=== PATIENT | female | born 1945 | race Caucasian/White ===

== ENCOUNTER → 2017-12-25 | Outpatient (CLI) | payer MEDICARE ==
--- NOTE | 2017-12-25 14:38 | XR ---
EXAMINATION TYPE: XR shoulder complete RT DATE OF EXAM: 12/25/2017 CLINICAL HISTORY: Nontraumatic right shoulder pain. TECHNIQUE: Three views of the right shoulder are obtained. COMPARISON: None. FINDINGS: There is no acute fracture/dislocation evident in the right shoulder. The acromioclavicul ar and glenohumeral joint spaces demonstrate degenerative change. Moderate acromioclavicular arthropa thy seen as marginal osteophytes and joint space narrowing as well as capsular hypertrophy and few ma rginal osteophytes of the humerus. Small subchondral cyst is also seen of the superior posterior carlos oid. No suspicious osseous lesion. The visualized ribs are intact and unremarkable. IMPRESSION: There is no acute fracture or dislocation in the right shoulder. Moderate acromio clavic ular arthropathy and mild glenohumeral arthropathy is seen on the right.
== END | disposition home or self-care (01) ==
LOC: RADXRMAIN 12:32
PROVIDERS: ATTEND Internal Medicine
DX: M19.011 Primary osteoarthritis, right shoulder (principal)

== ENCOUNTER → 2019-04-06 | Outpatient (CLI) | payer MEDICARE ==
--- NOTE | 2019-04-07 10:19 | MM ---
Reason for exam: screening (asymptomatic). Last mammogram was performed 4 years and 1 month ago. History: Patient is postmenopausal, history of endometrial cancer, and history of other cancer. Physical Findings: A clinical breast exam by your physician is recommended on an annual basis and results should be correlated with mammographic findings. MG 3D Screening Mammo W/Cad Bilateral CC and MLO view(s) were taken. Prior study comparison: February 22, 2015, bilateral MG screening mammo w CAD. October 13, 2013, bilateral MG screening mammo w CAD. There are scattered fibroglandular densities. There are benign appearing sable right upper inner quadrant and upper outer quadrant masses (two) on the right. Benign appearing bilateral calcifications. No suspicious abnormality. No significant changes when compared with prior studies. ASSESSMENT: Benign, BI-RAD 2 RECOMMENDATION: Routine screening mammogram of both breasts in 1 year.
== END | disposition home or self-care (01) ==
LOC: RADMAMWWP 10:57
PROVIDERS: ATTEND Internal Medicine
DX: Z12.31 Encounter for screening mammogram for malignant neoplasm of breast (principal)
CPT/HCPCS: 77063; 77067

== ENCOUNTER → 2019-12-06 | Outpatient (CLI) | payer MEDICARE ==
--- NOTE | 2019-12-06 15:18 | XR ---
EXAMINATION TYPE: XR forearm LT DATE OF EXAM: 12/06/2019 COMPARISON: NONE HISTORY: 74-year-old female with fall and injury, pain. TECHNIQUE: 2 views FINDINGS: Mild bony irregularity at the lateral condyle. Bony spurring at the coronoid process of the olecranon . No elbow joint effusion. No acute fracture, subluxation, dislocation seen. IMPRESSION: Bony spurring at the coronoid process may relate to old UCL injury. Some additional bony changes at t he lateral epicondyle suggesting chronic tendinopathy of the common extensor origin. No acute osseous abnormality seen.
== END | disposition home or self-care (01) ==
LOC: RADXRMAIN 14:10
PROVIDERS: ATTEND Internal Medicine
DX: T14.90XA Injury, unspecified, initial encounter (principal)

== ENCOUNTER → 2021-01-11 | Outpatient (CLI) | payer MEDICARE ==
--- NOTE | 2021-01-11 15:33 | XR ---
EXAMINATION TYPE: XR shoulder complete BILAT DATE OF EXAM: 01/11/2021 CLINICAL HISTORY: Bilateral shoulder pain after gardening injury. TECHNIQUE: Three views of the bilateral shoulders are obtained. COMPARISON: Prior right shoulder x-ray December 25, 2017. FINDINGS: There is no acute fracture/dislocation evident in either shoulder. Moderate to severe narr owing right acromioclavicular joint redemonstrated more prominent than left shoulder which shows mild to moderate narrowing and mild spurring distal acromion morphology unremarkable bilaterally. Symmetr ic mild to moderate narrowing and mild spurring bilateral glenohumeral joints. Visualized ribs are in tact bilaterally. IMPRESSION: As above.
== END | disposition home or self-care (01) ==
LOC: RADXRMAIN 15:01
PROVIDERS: ATTEND Internal Medicine
DX: M19.011 Primary osteoarthritis, right shoulder (principal); M19.012 Primary osteoarthritis, left shoulder; Y93.H2 Activity, gardening and landscaping

== ENCOUNTER 2021-04-16 14:49 | Emergency (ER) | payer MEDICARE ==
[2021-04-16 14:59] VITALS: BP 125/76; PULSE 88; TEMP 98.5
[2021-04-16 15:20] VITALS: RESP 18
--- NOTE | 2021-04-16 15:20 | ED ---
General Adult HPI - General Chief complaint: Upper Respiratory Infection Stated complaint: COVID+ Cough Time Seen by Provider: 04/16/21 15:04 Source: patient, RN notes reviewed Mode of arrival: wheelchair Limitations: no limitations - History of Present Illness Initial comments: 75-year-old well-appearing female patient presents to the emergency room from PCP's office for monoclonal antibody infusion. Patient states that she seen her doctor on Friday and he tested her for Covid. He called her today with positive results. She states that she has been having 5 days of body aches, nausea and cough. She recently finished amoxicillin for dental procedure that was scheduled today. That procedure was canceled because of Covid infection. Patient denies any pain, shortness of breath or nausea vomiting at this time. She does have a history of uterine cancer, DVT and hypertension. She states that she stopped taking her Coumadin 5 days ago for the dental procedure. -: days(s) (4) Location: head, face Severity scale (1-10): 0 Quality: aching Consistency: now resolved Improves with: other (tylenol) Worsens with: none Associated Symptoms: cough, headaches, loss of appetite, other (body aches) Treatments Prior to Arrival: none - Related Data Home Medications Medication Instructions Recorded Confirmed amLODIPine BESYLATE [Norvasc] 5 mg PO DAILY 02/23/14 03/01/14 carisoprodoL [Soma] 350 mg PO TID 02/23/14 03/01/14 Previous Rx's Medication Instructions Recorded Enoxaparin [Lovenox] 100 mg SQ Q12H #6 syr 03/04/14 HYDROcodone/APAP 10-325MG [Dalhart 1 each PO Q6H PRN #40 tab 03/04/14 10-325] Warfarin [Coumadin] 7.5 mg PO DAILY #3 tab 03/04/14 Allergies Allergy/AdvReac Type Severity Reaction Status Date / Time omeprazole Allergy Rash/Hives Verified 04/16/21 14:58 Review of Systems ROS Statement: Those systems with pertinent positive or pertinent negative responses have been documented in the HPI. ROS Other: All systems not noted in ROS Statement are negative. Past Medical History Past Medical History: Blood Disorder, Cancer, Deep Vein Thrombosis (DVT), Fibromyalgia, Hypertension, Osteoarthritis (OA), Pulmonary Embolus (PE) Additional Past Medical History / Comment(s): frequent muscle spasms around rib cage, numbness in arms from carpal tunnel, hx. uterine cancer, has clotting disorder- phlebitis, right knee dvt 9 months ago History of Any Multi-Drug Resistant Organisms: None Reported Past Surgical History: Hysterectomy Past Anesthesia/Blood Transfusion Reactions: No Reported Reaction Past Psychological History: No Psychological Hx Reported Past Alcohol Use History: Rare Past Drug Use History: None Reported - Past Family History Sister(s) Family Medical History: Deep Vein Thrombosis (DVT) Additional Family Medical History / Comment(s): oldest sister schizophrenic Brother(s) Family Medical History: Deep Vein Thrombosis (DVT) Mother Additional Family Medical History / Comment(s): manic depression, blood clotting disorder- phlebitis General Exam Limitations: no limitations General appearance: alert, in no apparent distress Head exam: Present: atraumatic, normocephalic, normal inspection Eye exam: Present: normal appearance, EOMI. Absent: scleral icterus, conjunctival injection, periorbital swelling ENT exam: Present: normal exam, normal oropharynx, mucous membranes moist Neck exam: Present: normal inspection, full ROM. Absent: tenderness, meningismus, lymphadenopathy, thyromegaly Respiratory exam: Present: normal lung sounds bilaterally. Absent: respiratory distress, wheezes, rales, rhonchi, stridor, chest wall tenderness, accessory muscle use Cardiovascular Exam: Present: regular rate, normal rhythm, normal heart sounds. Absent: systolic murmur, diastolic murmur, rubs, gallop, clicks GI/Abdominal exam: Present: soft, normal bowel sounds. Absent: distended, tenderness, guarding, rebound, rigid Extremities exam: Present: normal inspection, full ROM, normal capillary refill. Absent: tenderness, pedal edema, joint swelling, calf tenderness Back exam: Present: normal inspection. Absent: tenderness, CVA tenderness (R), CVA tenderness (L), rash noted Neurological exam: Present: alert, oriented X3 Psychiatric exam: Present: normal affect, normal mood Skin exam: Present: warm, dry, intact, normal color. Absent: rash, cyanosis, diaphoretic Course Vital Signs 04/16/21 04/16/21 14:53 15:15 Temperature 98.5 F Pulse Rate 88 Respiratory 20 18 Rate Blood Pressure 125/76 O2 Sat by Pulse 94 L Oximetry Medical Decision Making - Medical Decision Making This is a well-appearing female patient that was sent to the emergency room by her primary care doctor for monoclonal antibody infusion. She states his symptoms started about 5 days ago with body aches nausea and cough. She denies any chest pain or shortness of breath at this time. She tested Covid positive in her primary care doctor's office on Friday. She tolerated the monoclonal a ntibody infusion without any difficulties. She was discharged home to follow up with the primary care doctor and return with any new or worsening symptoms. Case was discussed with Dr. Barahona. Disposition Clinical Impression: COVID-19 Disposition: HOME SELF-CARE Condition: Good Instructions (If sedation given, give patient instructions): Coronavirus Disease 2019 (COVID-19) Additional Instructions: Follow-up with your primary care doctor this week. Discussed with him when to resume your Coumadin. Return to emergency room with any new or worsening symptoms including chest pain or difficulty in breathing. Is patient prescribed a controlled substance at d/c from ED?: No Referrals: Analilia Kent MD [Primary Care Provider] - 1-2 days
[2021-04-16] MEDS ORDERED: BAMLANIVIMAB (EUA) 700 MG, ETESEVIMAB (EUA) 1,400 MG in SODIUM CHLORIDE 0.9% 50 ML IVPB ONE (16:00)
[2021-04-16] MEDS ORDERED: SODIUM CHLORIDE 0.9% 50 ML IVPB ONE (16:30)
== END 2021-04-16 17:39 | disposition home or self-care (01) ==
LOC: EC 14:49
DX: U07.1 COVID-19 (principal); I10 Essential (primary) hypertension; M19.90 Unspecified osteoarthritis, unspecified site; M79.7 Fibromyalgia; Z79.01 Long term (current) use of anticoagulants; Z88.1 Allergy status to other antibiotic agents; Z86.718 Personal history of other venous thrombosis and embolism; Z86.711 Personal history of pulmonary embolism; Z85.42 Personal history of malignant neoplasm of other parts of uterus; Z90.710 Acquired absence of both cervix and uterus
CPT/HCPCS: 99283; 96365; J3490

== ENCOUNTER 2021-04-22 01:41 | Inpatient (IN) | payer MEDICARE ==
[2021-04-22] MEDS ORDERED: SODIUM CHLORIDE 0.9% 1,000 ML IV STA (01:49)
[2021-04-22] MEDS ORDERED: KETOROLAC 15 MG/ML 1 ML VIAL IVP STA (01:49)
[2021-04-22] MEDS ORDERED: ACETAMINOPHEN TAB 500 MG TAB PO STA (01:49)
[2021-04-22] MEDS ORDERED: DEXAMETHASONE SOD PHOSPHATE 10 MG/ML 1 ML VIAL IVP STA (01:49)
--- NOTE | 2021-04-22 01:50 | ED ---
Weakness HPI - General Chief complaint: Shortness of Breath Stated complaint: dehydration Time Seen by Provider: 04/22/21 01:49 Source: patient, EMS Mode of arrival: EMS Limitations: no limitations - Related Data Home Medications Medication Instructions Recorded Confirmed amLODIPine BESYLATE [Norvasc] 5 mg PO DAILY 02/23/14 03/01/14 carisoprodoL [Soma] 350 mg PO TID 02/23/14 03/01/14 Previous Rx's Medication Instructions Recorded Enoxaparin [Lovenox] 100 mg SQ Q12H #6 syr 03/04/14 HYDROcodone/APAP 10-325MG [Sebree 1 each PO Q6H PRN #40 tab 03/04/14 10-325] Warfarin [Coumadin] 7.5 mg PO DAILY #3 tab 03/04/14 Allergies Allergy/AdvReac Type Severity Reaction Status Date / Time omeprazole Allergy Rash/Hives Verified 04/16/21 14:58 Review of Systems ROS Statement: Those systems with pertinent positive or pertinent negative responses have been documented in the HPI. ROS Other: All systems not noted in ROS Statement are negative. Past Medical History Past Medical History: Blood Disorder, Cancer, Deep Vein Thrombosis (DVT), Fibromyalgia, Hypertension, Osteoarthritis (OA), Pulmonary Embolus (PE) Additional Past Medical History / Comment(s): frequent muscle spasms around rib cage, numbness in arms from carpal tunnel, hx. uterine cancer, has clotting disorder- phlebitis, right knee dvt 9 months ago History of Any Multi-Drug Resistant Organisms: None Reported Past Surgical History: Hysterectomy Past Anesthesia/Blood Transfusion Reactions: No Reported Reaction Past Psychological History: No Psychological Hx Reported Smoking Status: Former smoker Past Alcohol Use History: Rare Past Drug Use History: None Reported - Past Family History Sister(s) Family Medical History: Deep Vein Thrombosis (DVT) Additional Family Medical History / Comment(s): oldest sister schizophrenic Brother(s) Family Medical History: Deep Vein Thrombosis (DVT) Mother Additional Family Medical History / Comment(s): manic depression, blood clotting disorder- phlebitis General Exam Limitations: no limitations Course Vital Signs 04/22/21 01:43 Temperature 98.4 F Pulse Rate 91 Respiratory 22 Rate Blood Pressure 172/74 O2 Sat by Pulse 94 L Oximetry Disposition Clinical Impression: COVID-19 2019 novel coronavirus-infected pneumonia (NCIP), Weakness, Dehydration, Hypoxia Disposition: ADMITTED IP TO THIS HOSP Condition: Serious Is patient prescribed a controlled substance at d/c from ED?: No Referrals: Analilia Kent MD [Primary Care Provider] - 1-2 days
--- NOTE | 2021-04-22 02:16 | XR ---
EXAMINATION TYPE: XR chest 1V portable DATE OF EXAM: 04/22/2021 COMPARISON: 12/09/2012 HISTORY: Weakness TECHNIQUE: Single view FINDINGS: There is coarse infiltrate in both lungs. Heart size is fairly normal. There is no gross he art failure. There are chest leads. There is no definite pleural effusion. IMPRESSION: Moderate coarse bilateral pulmonary infiltrates consistent with pneumonia. No obvious hea rt failure. Infiltrates appear new compared to old exam.
[2021-04-22] MEDS ORDERED: NALOXONE 0.4 MG/ML 1 ML VIAL IV PRN (02:41)
[2021-04-22] MEDS ORDERED: ONDANSETRON 4 MG/2 ML VIAL IVP PRN (02:41)
[2021-04-22] MEDS ORDERED: MORPHINE SULFATE 4 MG/ML SYRINGE IV PRN (02:41)
[2021-04-22 02:56] LABS: Potassium 4.1 mmol/L (3.5-5.1)
[2021-04-22 02:59] LABS: ALT 23 U/L (4-34); AST 35 U/L (14-36); African American GFR (CKD) >90 (>60 ml/min/1.73 sqM); Albumin 3.2 g/dL (3.5-5.0); Alkaline Phosphatase 50 U/L (38-126); Anion Gap 7 mmol/L; Blood Urea Nitrogen 17 mg/dL (7-17); Calcium 8.6 mg/dL (8.4-10.2); Carbon Dioxide 25 mmol/L (22-30); Chloride 106 mmol/L (98-107); Glucose 140 mg/dL (74-99); LDH 1061 U/L (313-618); Magnesium 1.9 mg/dL (1.6-2.3); Non-African American GFR(CKD) 88 (>60 ml/min/1.73 sqM); Sodium 138 mmol/L (137-145); Total Bilirubin 0.7 mg/dL (0.2-1.3); Total Protein 6.1 g/dL (6.3-8.2)
[2021-04-22 03:04] LABS: Basophils % (A) 0 %; Eosinophils % (A) 0 %; HCT 44.8 % (34.0-46.0); HGB 14.6 gm/dL (11.4-16.0); Lymphocytes # (A) 0.5 k/uL (1.0-4.8); Lymphocytes % (A) 6 %; MCH 28.8 pg (25.0-35.0); MCHC 32.5 g/dL (31.0-37.0); MCV 88.6 fL (80.0-100.0); Mean Platelet Volume 7.7; Monocytes # (A) 0.5 k/uL (0-1.0); Monocytes % (A) 7 %; Neutrophils # (A) 6.9 k/uL (1.3-7.7); Neutrophils % (A) 86 %; Platelet Count 264 k/uL (150-450); RBC 5.06 m/uL (3.80-5.40); RDW 14.7 % (11.5-15.5); WBC 8.1 k/uL (3.8-10.6)
[2021-04-22] MEDS: ACETAMINOPHEN TAB 325 MG TAB PO PRN ×3 (03:11→03:14)
[2021-04-22] MEDS: SODIUM CHLORIDE 0.9% 1,000 ML IV SCH ×3 (03:13→21:29)
[2021-04-22 03:43] LABS: INR 3.3 (<1.2); Partial Thromboplastin Time 34.3 sec (22.0-30.0); Prothrombin Time 31.9 sec (9.0-12.0)
[2021-04-22 04:05] LABS: C Reactive Protein 17.3 mg/dL (<1.0)
[2021-04-22] MEDS: ENOXAPARIN 40 MG/0.4 ML SYRINGE SQ SCH ×2 (09:12→11:36)
[2021-04-22] MEDS ORDERED: ACETAMINOPHEN TAB 500 MG TAB PO PRN (11:51)
[2021-04-22] MEDS ORDERED: DEXAMETHASONE SOD PHOSPHATE 4 MG/ML 1 ML VIAL IVP SCH (12:00)
[2021-04-22] MEDS ORDERED: NON FORMULARY DRUG (Warfarin Sodium [Warfarin Sodium] 4 MG Tablet) PO SCH (12:00)
--- NOTE | 2021-04-22 13:19 | P.CNPUL ---
History of Present Illness Consult date: 04/22/21 Reason for consult: dyspnea, pneumonia History of present illness: 75-year-old female patient, being hospitalized for COVID 19 related to pneumon ia. Her brother is currently hospitalized for the same. Note that she had her household were all infected with COVID 19 and this includes her brother and daughter. Note that this is a not vaccinated individual. Her symptoms started approximately 9-10 days ago. She became symptomatic on 04/16/2021. She checked herself and she field return repairer to be positive. At that point, she came into the emergency department on 04/16/2021 and she was having some increased cough and body aches. And the patient was having also some increased nausea along with body aches and cough. In the emergency, the patient received monoclonal antibodies on 04/16/2021 and she was discharged home. Subsequently, her condi tion got worse and for that reason she came back to the hospital. Currently she had diffuse bilateral pulmonary infiltrates. She is on 6 L of oxygen by nasal cannula. Her chest x-ray is consistent with COVID 19 related pneumonia. The patient has diffuse bilateral pulmonary infiltrates. Meanwhile, the white cell count is at 8, lymphocyte count is at 0.5, INR is at 3.3 and the patient limited on warfarin outpatient basis, normal electrolytes, normal renal function, LVH level is 1061, CRP level is at 17, proBNP level is at 329. I was asked even with this patient. I saw her in the emergency. I have her currently on Decadron and should be placed on a Decadron dose of 6 mg IV every 12 hours. She is also receiving IV fluids at the rate of 130 mL an hour. 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 She has fibromyalgia and osteoarthritis and hypertension as comorbid conditions. Review of Systems Constitutional: Reports fatigue, Reports fever, Reports weakness Eyes: denies as per HPI, denies blurred vision, denies bulging eye, denies decreased vision, denies diplopia, denies discharge, denies dry eye, denies irritation, denies itching, denies pain, denies photophobia, denies loss of peripheral vision, denies loss of vision, denies tunnel vision/blind spots Ears: deny: decreased hearing, ear discharge, earache, tinnitus Ears, nose, mouth and throat: Reports as per HPI Breasts: absent: as per HPI, change in shape, gynecomastia, masses, nipple discharge, pain, skin changes, swelling Cardiovascular: Reports decreased exercise tolerance, Reports dyspnea on exertion Respiratory: Reports cough, Reports dyspnea Gastrointestinal: Reports as per HPI Menstruation: Reports as per HPI Musculoskeletal: Reports as per HPI Musculoskeletal: absent: ankle pain, ankle stiffness, ankle swelling, as per HPI, elbow pain, elbow stiffness, elbow swelling, foot pain, foot stiffness, foot swelling, hand pain, hand stiffness, hand swelling, hip pain, hip stiffness, hip swelling, knee pain, knee stiffness, knee swelling, shoulder pain, shoulder stiffness, shoulder swelling, wrist pain, wrist stiffness, wrist swelling Integumentary: Reports as per HPI Neurological: Reports as per HPI, Reports weakness Psychiatric: Reports as per HPI Endocrine: Reports as per HPI, Reports fatigue Hematologic/Lymphatic: Reports as per HPI Allergic/Immunologic: Reports as per HPI Past Medical History Past Medical History: Blood Disorder, Cancer, Deep Vein Thrombosis (DVT), Fibromyalgia, Hypertension, Osteoarthritis (OA), Pulmonary Embolus (PE) Additional Past Medical History / Comment(s): frequent muscle spasms around rib cage, numbness in arms from carpal tunnel, hx. uterine cancer, has clotting disorder- phlebitis, right knee dvt 9 months ago History of Any Multi-Drug Resistant Organisms: None Reported Past Surgical History: Hysterectomy Past Anesthesia/Blood Transfusion Reactions: No Reported Reaction Past Psychological History: No Psychological Hx Reported Smoking Status: Former smoker Past Alcohol Use History: Rare Past Drug Use History: None Reported - Past Family History Sister(s) Family Medical History: Deep Vein Thrombosis (DVT) Additional Family Medical History / Comment(s): oldest sister schizophrenic Brother(s) Family Medical History: Deep Vein Thrombosis (DVT) Mother Additional Family Medical History / Comment(s): manic depression, blood clotting disorder- phlebitis Medications and Allergies Home Medications Medication Instructions Recorded Confirmed Type amLODIPine BESYLATE [Norvasc] 5 mg PO DAILY 02/23/14 04/22/21 History Acetaminophen [Tylenol Extra 500 mg PO Q6H PRN 04/22/21 04/22/21 History Strength] Warfarin Sodium 4 mg PO DAILY 04/22/21 04/22/21 History oxyCODONE-APAP 10-325MG [Percocet 1 tab PO Q8HR 04/22/21 04/22/21 History 10-325 mg] Allergies Allergy/AdvReac Type Severity Reaction Status Date / Time omeprazole Allergy Rash/Hives Verified 04/22/21 07:53 Physical Exam Vitals: Vital Signs Temp Pulse Resp BP BP Pulse Ox 04/22/21 10:45 97.3 F L 82 22 154/75 93 L 04/22/21 09:00 97.1 F L 18 144/84 04/22/21 06:04 98.6 F 18 131/65 94 L 04/22/21 03:16 98 F 93 18 171/71 94 L 04/22/21 01:43 98.4 F 91 22 172/74 94 L Intake and Output 04/21/21 04/22/21 04/22/21 22:59 06:59 14:59 Other: Weight 104.326 kg General appearance: alert, in no apparent distress, the breathing is nonlabored. The patient is quite lethargic. She is arousable and she would communicate. Currently she is on oxygen at 6 L per minute nasal cannula. Not using excessive muscle breathing. Head exam: Present: atraumatic, normocephalic, normal inspection Eye exam: Present: normal appearance, EOMI. Absent: scleral icterus, conjunctival injection, periorbital swelling ENT exam: Present: normal exam, normal oropharynx, mucous membranes moist Neck exam: Present: normal inspection, full ROM. Absent: tenderness, meningismus, lymphadenopathy, thyromegaly Respiratory exam: Present: normal lung sounds bilaterally. Absent: respiratory distress, wheezes, rales, rhonchi, stridor, chest wall tenderness, accessory muscle use, the patient diminished breath on the lung bases along with some bibasilar crackles Cardiovascular Exam: Present: regular rate, normal rhythm, normal heart sounds. Absent: systolic murmur, diastolic murmur, rubs, gallop, clicks GI/Abdominal exam: Present: soft, normal bowel sounds. Absent: distended, tenderness, guarding, rebound, rigid Extremities exam: Present: normal inspection, full ROM, normal capillary refill. Absent: tenderness, pedal edema, joint swelling, calf tenderness Back exam: Present: normal inspection. Absent: tenderness, CVA tenderness (R), CVA tenderness (L), rash noted Neurological exam: Present: alert, oriented X3, significant motor weakness in all 4 extremities Psychiatric exam: Present: normal affect, normal mood Skin exam: Present: warm, dry, intact, normal color. Absent: rash, cyanosis, diaphoretic Results - Laboratory Findings CBC and BMP: 04/22/21 02:11 04/22/21 02:11 ABG WBC 8.1 k/uL (3.8-10.6) 04/22/21 02:11 RBC 5.06 m/uL (3.80-5.40) 04/22/21 02:11 Hgb 14.6 gm/dL (11.4-16.0) 04/22/21 02:11 Hct 44.8 % (34.0-46.0) 04/22/21 02:11 MCV 88.6 fL (80.0-100.0) 04/22/21 02:11 MCH 28.8 pg (25.0-35.0) 04/22/21 02:11 MCHC 32.5 g/dL (31.0-37.0) 04/22/21 02:11 RDW 14.7 % (11.5-15.5) 04/22/21 02:11 Plt Count 264 k/uL (150-450) 04/22/21 02:11 MPV 7.7 04/22/21 02:11 Neutrophils % 86 % 04/22/21 02:11 Lymphocytes % 6 % 04/22/21 02:11 Monocytes % 7 % 04/22/21 02:11 Eosinophils % 0 % 04/22/21 02:11 Basophils % 0 % 04/22/21 02:11 Neutrophils # 6.9 k/uL (1.3-7.7) 04/22/21 02:11 Lymphocytes # 0.5 k/uL (1.0-4.8) L 04/22/21 02:11 Monocytes # 0.5 k/uL (0-1.0) 04/22/21 02:11 Eosinophils # 0.0 k/uL (0-0.7) 04/22/21 02:11 Basophils # 0.0 k/uL (0-0.2) 04/22/21 02:11 PT 31.9 sec (9.0-12.0) H 04/22/21 02:11 INR 3.3 (<1.2) H 04/22/21 02:11 APTT 34.3 sec (22.0-30.0) H 04/22/21 02:11 Sodium 138 mmol/L (137-145) 04/22/21 02:11 Potassium 4.1 mmol/L (3.5-5.1) 04/22/21 02:11 Chloride 106 mmol/L (98-107) 04/22/21 02:11 Carbon Dioxide 25 mmol/L (22-30) 04/22/21 02:11 Anion Gap 7 mmol/L 04/22/21 02:11 BUN 17 mg/dL (7-17) 04/22/21 02:11 Creatinine 0.63 mg/dL (0.52-1.04) 04/22/21 02:11 Est GFR (CKD-EPI)AfAm >90 (>60 ml/min/1.73 sqM) 04/22/21 02:11 Est GFR (CKD-EPI)NonAf 88 (>60 ml/min/1.73 sqM) 04/22/21 02:11 Glucose 140 mg/dL (74-99) H 04/22/21 02:11 Plasma Lactic Acid Get 1.3 mmol/L (0.7-2.0) 04/22/21 02:11 Calcium 8.6 mg/dL (8.4-10.2) 04/22/21 02:11 Magnesium 1.9 mg/dL (1.6-2.3) 04/22/21 02:11 Total Bilirubin 0.7 mg/dL (0.2-1.3) 04/22/21 02:11 AST 35 U/L (14-36) 04/22/21 02:11 ALT 23 U/L (4-34) 04/22/21 02:11 Alkaline Phosphatase 50 U/L (38-126) 04/22/21 02:11 Lactate Dehydrogenase 1061 U/L (313-618) H 04/22/21 02:11 Troponin I <0.012 ng/mL (0.000-0.034) 04/22/21 02:11 C-Reactive Protein 17.3 mg/dL (<1.0) H 04/22/21 02:11 NT-Pro-B Natriuret Pep 329 pg/mL 04/22/21 02:11 Total Protein 6.1 g/dL (6.3-8.2) L 04/22/21 02:11 Albumin 3.2 g/dL (3.5-5.0) L 04/22/21 02:11 PT/INR, D-dimer PT 31.9 sec (9.0-12.0) H 04/22/21 02:11 INR 3.3 (<1.2) H 04/22/21 02:11 Abnormal lab findings: Abnormal Labs 04/22/21 04/22/21 04/22/21 02:11 02:11 02:11 Lymphocytes # 0.5 L PT 31.9 H INR 3.3 H APTT 34.3 H Glucose 140 H Lactate Dehydrogenase 1061 H C-Reactive Protein 17.3 H Total Protein 6.1 L Albumin 3.2 L - Diagnostic Findings Chest x-ray: image reviewed Assessment and Plan Plan: 1 acute COVID 19 related pneumonia and a 75-year-old female patient, not vaccinated, developed symptoms approximately 9-10 days ago, presented to the burst department on 04/16/2021 and she received monoclonal antibodies and subsequently her condition progressed and the patient is currently being hospitalized with bilateral pneumonia with hypoxic respiratory failure 2 acute hypoxic respiratory failure secondary to above currently on 6 L of oxygen by nasal cannula 3 increased fatigue and lethargy secondary to COVID 19 4 recent history of DVT and pulmonary embolism in the left lung articulation with warfarin, INR is above 3 45 fibromyalgia 6 osteoarthritis 7 previous history of uterine cancer and the patient has undergone hysterectomy Plan The patient will be started on IV Decadron 6 mg every 12 hours Continue anticoagulation with warfarin adjust INR between 2 and 3 Monitor inflammatory markers Outside the window Remdesivir treatment Resume all medications Multivitamin for COVID 19 related infections We'll continue to follow
--- NOTE | 2021-04-22 13:34 | P.HPIM ---
History of Present Illness H&P Date: 04/22/21 Rosie Mercer, is a 75-year-old female who presented to [facility] emergency room with a chief complaint of worsening shortness of breath She was evaluated in the emergency room vital examination on presentation revealed a temperature of 98.4 pulse 91 respiration 22 blood pressure 172/74 pulse ox 94% on 6 L nasal cannula and 86% on room air Laboratory data revealed a white blood count of 8.1 hemoglobin 14.6 platelet count 264 INR 3.3 BUN 17 creatinine 0.63 LDH 1061 C-reactive protein 17.3 patient has a known history of positive COVID-19 PCR testing about 1 week ago she came to emergency room and received IV infusion of antibodies last week she was doing well for few days since she started having worsening shortness of breath Testing in the emergency room revealed chest x-ray done in the emergency room revealed bilateral pulmonary infiltrates consistent with pneumonia EKG revealed normal sinus rhythm normal EKG Patient was admitted to medical floor for further evaluation and treatment Past medical history is significant for history of hypertension, history of hyperlipidemia, 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 uterine cancer, has clotting disorder- phlebitis, right knee dvt 9 months ago History of Any Multi-Drug Resistant Organisms: None Reported Past Surgical History: Hysterectomy Past Anesthesia/Blood Transfusion Reactions: No Reported Reaction Past Psychological History: No Psychological Hx Reported Smoking Status: Former smoker Past Alcohol Use History: Rare Past Drug Use History: None Reported - Past Family History Sister(s) Family Medical History: Deep Vein Thrombosis (DVT) Additional Family Medical History / Comment(s): oldest sister schizophrenic Brother(s) Family Medical History: Deep Vein Thrombosis (DVT) Mother Additional Family Medical History / Comment(s): manic depression, blood clotting disorder- phlebitis Medications and Allergies Home Medications Medication Instructions Recorded Confirmed Type amLODIPine BESYLATE [Norvasc] 5 mg PO DAILY 02/23/14 04/22/21 History Acetaminophen [Tylenol Extra 500 mg PO Q6H PRN 04/22/21 04/22/21 History Strength] Warfarin Sodium 4 mg PO DAILY 04/22/21 04/22/21 History oxyCODONE-APAP 10-325MG [Percocet 1 tab PO Q8HR 04/22/21 04/22/21 History 10-325 mg] Allergies Allergy/AdvReac Type Severity Reaction Status Date / Time omeprazole Allergy Rash/Hives Verified 04/22/21 07:53 Physical Exam Vitals: Vital Signs Temp Pulse Resp BP BP Pulse Ox 04/22/21 10:45 97.3 F L 82 22 154/75 93 L 04/22/21 09:00 97.1 F L 18 144/84 04/22/21 06:04 98.6 F 18 131/65 94 L 04/22/21 03:16 98 F 93 18 171/71 94 L 04/22/21 01:43 98.4 F 91 22 172/74 94 L Intake and Output 04/21/21 04/22/21 04/22/21 22:59 06:59 14:59 Other: Weight 104.326 kg In general patient is alert and oriented x 3 in no distress HEENT head normocephalic and atraumatic Neck is supple no JVD no goiter no lymphadenopathy no carotid bruit Chest examination reveals scattered crackles bilaterally with wheezing Cardiac exam reveals regular heart sounds S1 and S2 no gallops no murmurs Abdomen is soft nontender no organomegaly with normal bowel sounds Extremity exam reveals no edema no cyanosis or clubbing Neurological examination reveals no gross focal deficits Results CBC & Chem 7: 04/22/21 02:11 04/22/21 02:11 Labs: Abnormal Lab Results - Last 24 Hours (Table) 04/22/21 04/22/21 04/22/21 Range/Units 02:11 02:11 02:11 Lymphocytes # 0.5 L (1.0-4.8) k/uL PT 31.9 H (9.0-12.0) sec INR 3.3 H (<1.2) APTT 34.3 H (22.0-30.0) sec Glucose 140 H (74-99) mg/dL Lactate Dehydrogenase 1061 H (313-618) U/L C-Reactive Protein 17.3 H (<1.0) mg/dL Total Protein 6.1 L (6.3-8.2) g/dL Albumin 3.2 L (3.5-5.0) g/dL Assessment and Plan Plan: Acute COVID-19 pneumonia Acute hypoxic respiratory failure Underlying history of hypertension Underlying history of hyperlipidemia Underlying history of lower extremity DVT maintained on Coumadin Underlying history of osteoarthritis Underlying history of morbid obesity Underlying history of degenerative disc disease maintained on narcotics for pain management Underlying history of anxiety disorder At this time patient is admitted to medical floor She was started on IV Decadron in the emergency room Patient is maintained on Coumadin and her INR is slightly on the high side at 3.3 Pulmonary and critical care consultation was requested
[2021-04-22] MEDS: amLODIPine 5 MG TAB PO SCH (15:23)
[2021-04-22] MEDS: oxyCODONE-APAP 10-325MG 1 EACH TAB PO SCH ×2 (15:47→17:36)
[2021-04-22] MEDS ORDERED: WARFARIN 0.5 MG TAB PO ONE (18:00)
[2021-04-23] MEDS ORDERED: DEXAMETHASONE SOD PHOSPHATE 4 MG/ML 1 ML VIAL ONE (00:45)
[2021-04-23] MEDS: DEXAMETHASONE SOD PHOSPHATE 4 MG/ML 1 ML VIAL IVP SCH ×4 (01:10→21:19)
[2021-04-23] MEDS: oxyCODONE-APAP 10-325MG 1 EACH TAB PO SCH ×3 (01:11→16:12)
[2021-04-23] MEDS: SODIUM CHLORIDE 0.9% 1,000 ML IV SCH ×3 (05:19→17:17)
[2021-04-23] MEDS: amLODIPine 5 MG TAB PO SCH (07:50)
[2021-04-23 08:56] LABS: ALT 21 U/L (4-34); AST 31 U/L (14-36); African American GFR (CKD) >90 (>60 ml/min/1.73 sqM); Albumin 2.9 g/dL (3.5-5.0); Alkaline Phosphatase 57 U/L (38-126); Anion Gap 6 mmol/L; Blood Urea Nitrogen 17 mg/dL (7-17); Calcium 8.5 mg/dL (8.4-10.2); Carbon Dioxide 23 mmol/L (22-30); Chloride 112 mmol/L (98-107); Globulin 2.8 g/dL; Glucose 140 mg/dL (74-99); Non-African American GFR(CKD) >90 (>60 ml/min/1.73 sqM); Potassium 4.9 mmol/L (3.5-5.1); Sodium 141 mmol/L (137-145); Total Bilirubin 0.4 mg/dL (0.2-1.3); Total Protein 5.7 g/dL (6.3-8.2)
[2021-04-23 08:58] LABS: INR 3.3 (<1.2); Prothrombin Time 31.7 sec (9.0-12.0)
[2021-04-23 11:01] LABS: Basophils # (A) 0.02 X 10*3/uL (0.00-0.10); Basophils % (A) 0.2 %; Eosinophils # (A) 0 X 10*3/uL (0.04-0.35); Eosinophils % (A) 0 %; HCT 41.9 % (37.2-46.3); HGB 13.2 g/dL (12.0-15.0); Lymphocytes # (A) 0.95 X 10*3/uL (0.90-5.00); Lymphocytes % (A) 7.4 %; MCHC 31.5 g/dL (32.0-37.0); MCV 88.8 fL (80.0-97.0); Mean Platelet Volume 9.3 fL (9.5-12.2); Monocytes # (A) 0.52 X 10*3/uL (0.20-1.00); Monocytes % (A) 4.1 %; Neutrophils # (A) 11.28 X 10*3/uL (1.80-7.70); Neutrophils % (A) 87.8 %; Platelet Count 323 X 10*3/uL (140-440); RBC 4.72 X 10*6/uL (4.10-5.20); RDW 15.3 % (11.5-14.5); WBC 12.83 X 10*3/uL (4.50-10.00)
[2021-04-23] MEDS: ZINC SULFATE 220 MG CAP PO SCH (16:12)
[2021-04-23] MEDS: CHOLECALCIFEROL 10 MCG (400 IU) TABLET PO SCH (16:25)
[2021-04-23] MEDS ORDERED: WARFARIN 0.5 MG TAB PO ONE (18:00)
--- NOTE | 2021-04-23 18:51 | P.PN ---
Subjective Progress Note Date: 04/23/21 Rosie Mercer, is a 75-year-old female who presented to [facility] emergency room with a chief complaint of worsening shortness of breath She was evaluated in the emergency room vital examination on presentation revealed a temperature of 98.4 pulse 91 respiration 22 blood pressure 172/74 p ulse ox 94% on 6 L nasal cannula and 86% on room air Laboratory data revealed a white blood count of 8.1 hemoglobin 14.6 platelet count 264 INR 3.3 BUN 17 creatinine 0.63 LDH 1061 C-reactive protein 17.3 patient has a known history of positive COVID-19 PCR testing about 1 week ago she came to emergency room and received IV infusion of antibodies last week she was doing well for few days since she started having worsening shortness of breath Testing in the emergency room revealed chest x-ray done in the emergency room revealed bilateral pulmonary infiltrates consistent with pneumonia EKG revealed normal sinus rhythm normal EKG Patient was admitted to medical floor for further evaluation and treatment Past medical history is significant for history of hypertension, history of hyperlipidemia, 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 history of osteoarthritis, history of morbid obesity, On 04/23/2021 patient was seen and examined on the medical floor she is alert and oriented 3 in no apparent distress she is still complaining of shortness of breath and cough otherwise she denies any complaints, vital exam reveals a temperature of 99 pulse 84 respirations 17 blood pressure 174/82 pulse ox 90% on 8 L nasal cannula her white blood count is up to 12.8 hemoglobin 13.2 platelet count 323 INR 3.3 BUN 17 creatinine 0.53 Objective - Vital Signs Vital signs: Vital Signs Temp 99.0 F 04/23/21 10:17 Pulse 84 04/23/21 10:17 Resp 17 04/23/21 10:17 BP 174/82 04/23/21 10:17 Pulse Ox 90 L 04/23/21 10:17 Intake & Output 04/22/21 04/23/21 04/23/21 18:59 06:59 18:59 Weight 104.326 kg Other: Voiding Method External Catheter # Voids 150 - Exam In general patient is alert and oriented x 3 in no distress HEENT head normocephalic and atraumatic Neck is supple no JVD no goiter no lymphadenopathy no carotid bruit Chest examination reveals scattered crackles bilaterally with wheezing Cardiac exam reveals regular heart sounds S1 and S2 no gallops no murmurs Abdomen is soft nontender no organomegaly with normal bowel sounds Extremity exam reveals no edema no cyanosis or clubbing Neurological examination reveals no gross focal deficits - Labs CBC & Chem 7: 04/23/21 07:25 04/23/21 07:25 Labs: Abnormal Lab Results - Last 24 Hours (Table) 04/23/21 04/23/21 Range/Units 07:25 07:25 PT 31.7 H (9.0-12.0) sec INR 3.3 H (<1.2) Chloride 112 H (98-107) mmol/L Glucose 140 H (74-99) mg/dL Total Protein 5.7 L (6.3-8.2) g/dL Albumin 2.9 L (3.5-5.0) g/dL Assessment and Plan Plan: Acute COVID-19 pneumonia Acute hypoxic respiratory failure Underlying history of hypertension Underlying history of hyperlipidemia Underlying history of lower extremity DVT maintained on Coumadin Underlying history of osteoarthritis Underlying history of morbid obesity Underlying history of degenerative disc disease maintained on narcotics for pain management Underlying history of anxiety disorder At this time patient is admitted to medical floor She was started on IV Decadron in the emergency room Patient is maintained on Coumadin and her INR is slightly on the high side at 3.3 Pulmonary and critical care consultation was requested
--- NOTE | 2021-04-23 18:52 | P.PN ---
Subjective Progress Note Date: 04/23/21 Principal diagnosis: Acute COVID-19 pneumonia 75-year-old female patient, being hospitalized for COVID 19 related to pneumonia. Her brother is currently hospitalized for the same. Note that she had her household were all infected with COVID 19 and this includes her brother and daughter. Note that this is a not vaccinated individual. Her symptoms started approximately 9-10 days ago. She became symptomatic on 04/16/2021. She checked herself and she necktie turner to be positive. At that point, she came into the emergency department on 04/16/2021 and she was having some increased cough and body aches. And the patient was having also some increased nausea along with body aches and cough. In the emergency, the patient received monoclonal antibodies on 04/16/2021 and she was discharged home. Subsequently, her condition got worse and for that reason she came back to the hospital. Currently she had diffuse bilateral pulmonary infiltrates. She is on 6 L of oxygen by nasal cannula. Her chest x-ray is consistent with COVID 19 related pneumonia. The patient has diffuse bilateral pulmonary infiltrates. Meanwhile, the white cell count is at 8, lymphocyte count is at 0.5, INR is at 3.3 and the patient limited on warfarin outpatient basis, normal electrolytes, normal renal function, LVH level is 1061, CRP level is at 17, proBNP level is at 329. I was asked even with this patient. I saw her in the emergency. I have her currently on Decadron and should be placed on a Decadron dose of 6 mg IV every 12 hours. She is also receiving IV fluids at the rate of 130 mL an hour. 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 She has fibromyalgia and osteoarthritis and hypertension as comorbid conditions. On 04/23/2001 patient seen in follow-up on medical surgical floor. She is currently up to 8 L of oxygen pulse ox is 90%, she is still wheezing, but denies any acute distress. Afebrile. Patient remains on Decadron 6 blood gram twice daily, she is on 0.9 normal saline at a rate of 150 ML per hour, and Coumadin. Her INR is 3.3. As the labs have been reviewed, white blood cell count is 12.8, hemoglobin is 13.2, sodium is 141, potassium is 4.9, chloride is 112, BUN is 17 creatinine 0.53. Objective - Vital Signs Vital signs: Vital Signs Temp 98.3 F 04/23/21 14:00 Pulse 83 04/23/21 14:00 Resp 16 04/23/21 14:00 BP 151/74 04/23/21 14:00 Pulse Ox 92 L 04/23/21 14:00 Intake & Output 04/22/21 04/23/21 04/23/21 18:59 06:59 18:59 Output Total 600 Balance -600 Weight 104.326 kg Output: Urine 600 Other: Voiding Method External Catheter # Voids 150 - Exam GENERAL EXAM: Alert, very pleasant, 75-year-old white female, on 8 L of oxygen with pulse ox of 92% comfortable in no apparent distress. HEAD: Normocephalic/atraumatic. EYES: Normal reaction of pupils, equal size. Conjunctiva pink, sclera white. NOSE: Clear with pink turbinates. THROAT: No erythema or exudates. NECK: No masses, no JVD, no thyroid enlargement, no adenopathy. CHEST: No chest wall deformity. Symmetrical expansion. LUNGS: Equal air entry with diffuse wheezes CVS: Regular rate and rhythm, normal S1 and S2, no gallops, no murmurs, no rubs ABDOMEN: Soft, nontender. No hepatosplenomegaly, normal bowel sounds, no guarding or rigidity. EXTREMITIES: No clubbing, no edema, no cyanosis, 2+ pulses and upper and lower extremities. MUSCULOSKELETAL: Muscle strength and tone normal. SPINE: No scoliosis or deformity SKIN: No rashes CENTRAL NERVOUS SYSTEM: Alert and oriented -3. No focal deficits, tone is normal in all 4 extremities. PSYCHIATRIC: Alert and oriented -3. Appropriate affect. Intact judgment and insight. - Labs CBC & Chem 7: 04/23/21 07:25 04/23/21 07:25 Labs: Abnormal Lab Results - Last 24 Hours (Table) 04/23/21 04/23/21 04/23/21 Range/Units 07:25 07:25 07:25 WBC 12.83 H (4.50-10.00) X 10*3/uL MCHC 31.5 L (32.0-37.0) g/dL RDW 15.3 H (11.5-14.5) % MPV 9.3 L (9.5-12.2) fL Immature Gran # 0.06 H (0.00-0.04) X 10*3/uL Neutrophils # 11.28 H (1.80-7.70) X 10*3/uL Eosinophils # 0 L (0.04-0.35) X 10*3/uL PT 31.7 H (9.0-12.0) sec INR 3.3 H (<1.2) Chloride 112 H (98-107) mmol/L Glucose 140 H (74-99) mg/dL Total Protein 5.7 L (6.3-8.2) g/dL Albumin 2.9 L (3.5-5.0) g/dL Assessment and Plan Plan: Assessment: #1. Acute hypoxic respiratory failure related to acute COVID-19 pneumonia. Patient came into the emergency department after symptom onset 10 days ago, patient is status post monoclonal antibody infusion on 04/16/2021. Patient is not vaccinated against COVID-19. She is currently up to 8 L of oxygen #2. Previous history of DVT and PE on Coumadin #3. Hypertension #4. Osteoporosis arthritis #5. Fibromyalgia #6. Former smoker #7. History of hysterectomy Plan: Continue current medical treatment Continue current dose Decadron, patient is on twice daily dosing with 6 mg Continue Coumadin pharmacy to dose, today's INR is 3.3 Continue IV hydration We'll monitor patient for a worsening dyspnea or worsening hypoxia Continue the COVID 19 vitamins I performed a history & physical examination of the patient and discussed their management with my nurse practitioner, Silvia Ozuna. I reviewed the nurse practitioner's note and agree with the documented findings and plan of care. Lung sounds are positive for diminished breath sounds throughout the lung chu. The findings and the impression was discussed with the patient. I attest to the documentation by the nurse practitioner. Time with Patient: Less than 30
[2021-04-23] MEDS: ASCORBIC ACID 500 MG TAB PO SCH (21:19)
[2021-04-24] MEDS: oxyCODONE-APAP 10-325MG 1 EACH TAB PO SCH ×3 (00:53→15:36)
[2021-04-24] MEDS: SODIUM CHLORIDE 0.9% 1,000 ML IV SCH ×3 (03:50→17:33)
[2021-04-24 06:36] LABS: Basophils % (A) 0 %; Eosinophils % (A) 0 %; HCT 41.7 % (34.0-46.0); HGB 13.2 gm/dL (11.4-16.0); Lymphocytes # (A) 0.6 k/uL (1.0-4.8); Lymphocytes % (A) 4 %; MCH 28.5 pg (25.0-35.0); MCHC 31.7 g/dL (31.0-37.0); MCV 89.8 fL (80.0-100.0); Mean Platelet Volume 7.1; Monocytes # (A) 0.5 k/uL (0-1.0); Monocytes % (A) 4 %; Neutrophils # (A) 12.9 k/uL (1.3-7.7); Neutrophils % (A) 91 %; Platelet Count 287 k/uL (150-450); RBC 4.64 m/uL (3.80-5.40); RDW 14.7 % (11.5-15.5); WBC 14.3 k/uL (3.8-10.6)
[2021-04-24 06:47] LABS: ALT 23 U/L (4-34); AST 36 U/L (14-36); African American GFR (CKD) >90 (>60 ml/min/1.73 sqM); Albumin 2.7 g/dL (3.5-5.0); Alkaline Phosphatase 64 U/L (38-126); Anion Gap 4 mmol/L; Blood Urea Nitrogen 16 mg/dL (7-17); Calcium 8.4 mg/dL (8.4-10.2); Carbon Dioxide 23 mmol/L (22-30); Chloride 112 mmol/L (98-107); Globulin 2.8 g/dL; Glucose 139 mg/dL (74-99); Non-African American GFR(CKD) >90 (>60 ml/min/1.73 sqM); Potassium 4.9 mmol/L (3.5-5.1); Sodium 139 mmol/L (137-145); Total Bilirubin 0.4 mg/dL (0.2-1.3); Total Protein 5.5 g/dL (6.3-8.2)
[2021-04-24 07:02] LABS: Prothrombin Time 67.4 sec (9.0-12.0)
[2021-04-24 07:11] LABS: INR 6.9 (<1.2)
[2021-04-24] MEDS: LORazepam 2 MG/ML INJ IV PRN ×2 (08:10→13:47)
[2021-04-24] MEDS: amLODIPine 5 MG TAB PO SCH (08:10)
[2021-04-24] MEDS: CHOLECALCIFEROL 10 MCG (400 IU) TABLET PO SCH (08:10)
[2021-04-24] MEDS: ZINC SULFATE 220 MG CAP PO SCH (08:10)
[2021-04-24] MEDS: ASCORBIC ACID 500 MG TAB PO SCH ×2 (08:10→20:50)
[2021-04-24] MEDS: DEXAMETHASONE SOD PHOSPHATE 4 MG/ML 1 ML VIAL IVP SCH ×2 (08:11→20:50)
[2021-04-24] MEDS ORDERED: PHYTONADIONE ORAL 5 MG/5 ML ORAL.SYRG PO STA (10:32)
--- NOTE | 2021-04-24 12:27 | P.PN ---
Subjective Progress Note Date: 04/24/21 Principal diagnosis: Acute COVID-19 pneumonia 75-year-old female patient, being hospitalized for COVID 19 related to pneumonia. Her brother is currently hospitalized for the same. Note that she had her household were all infected with COVID 19 and this includes her brother and daughter. Note that this is a not vaccinated individual. Her symptoms started approximately 9-10 days ago. She became symptomatic on 04/16/2021. She checked herself and she negative turner to be positive. At that point, she came into the emergency department on 04/16/2021 and she was having some increased cough and body aches. And the patient was having also some increased nausea along with body aches and cough. In the emergency, the patient received monoclonal antibodies on 04/16/2021 and she was discharged home. Subsequently, her condition got worse and for that reason she came back to the hospital. Currently she had diffuse bilateral pulmonary infiltrates. She is on 6 L of oxygen by nasal cannula. Her chest x-ray is consistent with COVID 19 related pneumonia. The patient has diffuse bilateral pulmonary infiltrates. Meanwhile, the white cell count is at 8, lymphocyte count is at 0.5, INR is at 3.3 and the patient limited on warfarin outpatient basis, normal electrolytes, normal renal function, LVH level is 1061, CRP level is at 17, proBNP level is at 329. I was asked even with this patient. I saw her in the emergency. I have her currently on Decadron and should be placed on a Decadron dose of 6 mg IV every 12 hours. She is also receiving IV fluids at the rate of 130 mL an hour. 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 She has fibromyalgia and osteoarthritis and hypertension as comorbid conditions. On 04/23/2001 patient seen in follow-up on medical surgical floor. She is currently up to 8 L of oxygen pulse ox is 90%, she is still wheezing, but denies any acute distress. Afebrile. Patient remains on Decadron 6 blood gram twice daily, she is on 0.9 normal saline at a rate of 150 ML per hour, and Coumadin. Her INR is 3.3. As the labs have been reviewed, white blood cell count is 12.8, hemoglobin is 13.2, sodium is 141, potassium is 4.9, chloride is 112, BUN is 17 creatinine 0.53. On 04/24/2021 patient seen on medical surgical floor. She is awake and alert, she is currently on 8 L of oxygen her pulse ox is 92%, she sat up in the chair, she is short of breath with conversation, but overall she states she is feeling better sitting up in the chair, complaints of chest pain, she remains on Decadron 6 mg every 12 hours, she continues on COVID-19 vitamins, and she is on Coumadin for anticoagulation, today's INR is 6.9 and her Coumadin will be held, patient will receive 2.5 mg of oral vitamin K. There is some blood work has been reviewed, white blood cell, 14.3, hemoglobin is 13.2, electrolytes and renal profile are unremarkable, the patient remains on IV hydration with plan on adenosine at a rate of 130 ML per hour. Objective - Vital Signs Vital signs: Vital Signs Temp 97.2 F L 04/24/21 10:00 Pulse 85 04/24/21 10:00 Resp 16 04/24/21 10:00 BP 153/68 04/24/21 10:00 Pulse Ox 92 L 04/24/21 10:00 Intake & Output 04/23/21 04/24/21 04/24/21 18:59 06:59 18:59 Output Total 600 400 Balance -600 -400 Output: Urine 600 400 Other: Voiding Method External Catheter - Exam GENERAL EXAM: Alert, very pleasant, 75-year-old white female, on 8 L of oxygen with pulse ox of 92% comfortable in no apparent distress. HEAD: Normocephalic/atraumatic. EYES: Normal reaction of pupils, equal size. Conjunctiva pink, sclera white. NOSE: Clear with pink turbinates. THROAT: No erythema or exudates. NECK: No masses, no JVD, no thyroid enlargement, no adenopathy. CHEST: No chest wall deformity. Symmetrical expansion. LUNGS: Equal air entry with diffuse wheezes CVS: Regular rate and rhythm, normal S1 and S2, no gallops, no murmurs, no rubs ABDOMEN: Soft, nontender. No hepatosplenomegaly, normal bowel sounds, no guarding or rigidity. EXTREMITIES: No clubbing, no edema, no cyanosis, 2+ pulses and upper and lower extremities. MUSCULOSKELETAL: Muscle strength and tone normal. SPINE: No scoliosis or deformity SKIN: No rashes CENTRAL NERVOUS SYSTEM: Alert and oriented -3. No focal deficits, tone is normal in all 4 extremities. PSYCHIATRIC: Alert and oriented -3. Appropriate affect. Intact judgment and insight. - Labs CBC & Chem 7: 04/24/21 06:02 04/24/21 06:02 Labs: Abnormal Lab Results - Last 24 Hours (Table) 04/24/21 04/24/21 04/24/21 Range/Units 06:02 06:02 06:02 WBC 14.3 H (3.8-10.6) k/uL Neutrophils # 12.9 H (1.3-7.7) k/uL Lymphocytes # 0.6 L (1.0-4.8) k/uL PT 67.4 H (9.0-12.0) sec INR 6.9 H* (<1.2) Chloride 112 H (98-107) mmol/L Glucose 139 H (74-99) mg/dL Total Protein 5.5 L (6.3-8.2) g/dL Albumin 2.7 L (3.5-5.0) g/dL Assessment and Plan Plan: Assessment: #1. Acute hypoxic respiratory failure related to acute COVID-19 pneumonia. Patient came into the emergency department after symptom onset 10 days ago, patient is status post monoclonal antibody infusion on 04/16/2021. Patient is not vaccinated against COVID-19. She is currently up to 8 L of oxygen #2. Previous history of DVT and PE on Coumadin #3. Hypertension #4. Osteoporosis arthritis #5. Fibromyalgia #6. Former smoker #7. History of hysterectomy #8. Supratherapeutic INR, 6.9 on today's labs, will receive 2.5 mg of vitamin K Plan: Continue current medical treatment Continue current dose Decadron, patient is on twice daily dosing with 6 mg Continue Coumadin pharmacy to dose, today's INR is 6.9 Continue COVID-19 vitamins Provide incentive spirometer Cutback IV fluids to 75 ML Continue to follow I performed a history & physical examination of the patient and discussed their management with my nurse practitioner, Silvia Ozuna. I reviewed the nurse practitioner's note and agree with the documented findings and plan of care. Lung sounds are positive for diminished breath sounds throughout the lung chu . The findings and the impression was discussed with the patient. I attest to the documentation by the nurse practitioner. Time with Patient: Less than 30
[2021-04-24] MEDS ORDERED: WARFARIN 0.5 MG TAB PO ONE (18:00)
[2021-04-25] MEDS: oxyCODONE-APAP 10-325MG 1 EACH TAB PO SCH ×4 (00:05→23:10)
[2021-04-25] MEDS: SODIUM CHLORIDE 0.9% 1,000 ML IV SCH ×5 (06:14→17:59)
[2021-04-25 07:08] LABS: Prothrombin Time 19.7 sec (9.0-12.0)
--- NOTE | 2021-04-25 07:31 | XR ---
EXAMINATION TYPE: XR chest 1V portable DATE OF EXAM: 04/25/2021 Comparison: 04/22/2021 Clinical History: 75-year-old female covid Findings: Heart borderline enlarged. Diffuse interstitial opacities with confluent areas of opacity in the alejo phery of the bilateral lungs. No pneumothorax. Impression: Continued similar bilateral COVID pneumonia.
[2021-04-25] MEDS: DEXAMETHASONE SOD PHOSPHATE 4 MG/ML 1 ML VIAL IVP SCH ×2 (08:00→20:23)
[2021-04-25] MEDS: ZINC SULFATE 220 MG CAP PO SCH (09:04)
[2021-04-25] MEDS: ASCORBIC ACID 500 MG TAB PO SCH ×2 (09:04→20:23)
[2021-04-25] MEDS: CHOLECALCIFEROL 10 MCG (400 IU) TABLET PO SCH (09:05)
[2021-04-25] MEDS: amLODIPine 5 MG TAB PO SCH (09:05)
--- NOTE | 2021-04-25 12:09 | P.PN ---
Subjective Progress Note Date: 04/25/21 Principal diagnosis: Acute COVID-19 pneumonia 75-year-old female patient, being hospitalized for COVID 19 related to pneumonia. Her brother is currently hospitalized for the same. Note that she had her household were all infected with COVID 19 and this includes her brother and daughter. Note that this is a not vaccinated individual. Her symptoms started approximately 9-10 days ago. She became symptomatic on 04/16/2021. She checked herself and she log turner to be positive. At that point, she came into the emergency department on 04/16/2021 and she was having some increased cough and body aches. And the patient was having also some increased nausea along with body aches and cough. In the emergency, the patient received monoclonal antibodies on 04/16/2021 and she was discharged home. Subsequently, her condition got worse and for that reason she came back to the hospital. Currently she had diffuse bilateral pulmonary infiltrates. She is on 6 L of oxygen by nasal cannula. Her chest x-ray is consistent with COVID 19 related pneumonia. The patient has diffuse bilateral pulmonary infiltrates. Meanwhile, the white cell count is at 8, lymphocyte count is at 0.5, INR is at 3.3 and the patient limited on warfarin outpatient basis, normal electrolytes, normal renal function, LVH level is 1061, CRP level is at 17, proBNP level is at 329. I was asked even with this patient. I saw her in the emergency. I have her currently on Decadron and should be placed on a Decadron dose of 6 mg IV every 12 hours. She is also receiving IV fluids at the rate of 130 mL an hour. 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 She has fibromyalgia and osteoarthritis and hypertension as comorbid conditions. On 04/23/2001 patient seen in follow-up on medical surgical floor. She is currently up to 8 L of oxygen pulse ox is 90%, she is still wheezing, but denies any acute distress. Afebrile. Patient remains on Decadron 6 blood gram twice daily, she is on 0.9 normal saline at a rate of 150 ML per hour, and Coumadin. Her INR is 3.3. As the labs have been reviewed, white blood cell count is 12.8, hemoglobin is 13.2, sodium is 141, potassium is 4.9, chloride is 112, BUN is 17 creatinine 0.53. On 04/24/2021 patient seen on medical surgical floor. She is awake and alert, she is currently on 8 L of oxygen her pulse ox is 92%, she sat up in the chair, she is short of breath with conversation, but overall she states she is feeling better sitting up in the chair, complaints of chest pain, she remains on Decadron 6 mg every 12 hours, she continues on COVID-19 vitamins, and she is on Coumadin for anticoagulation, today's INR is 6.9 and her Coumadin will be held, patient will receive 2.5 mg of oral vitamin K. There is some blood work has been reviewed, white blood cell, 14.3, hemoglobin is 13.2, electrolytes and renal profile are unremarkable, the patient remains on IV hydration with plan on adenosine at a rate of 130 ML per hour. On 04/25/2021 patient seen in follow-up on medical surgical floor. She is currently on 8 L of oxygen with a pulse ox of 90-92%. FiO2 has been increased compared to yesterday when she was on 7 L. Chest x-ray showing diffuse interstitial opacities similar to prior exam. She feels chilled on today's exam, but there is been no recorded fevers overnight, vital signs have been stable. Lung sounds reveal diffuse crackles, occasional cough, no phlegm production. She remains on Decadron 6 mg twice daily, she continues on IV hydration with 0.9 normal saline at around 75 ML per hour, COVID-19 vitamins, and Coumadin. Today she was given vitamin K for supratherapeutic INR of 6.9, and INR today is down to 2.0. Today's LDH has significantly improved and is at 477 down from 1061. CRP is pending. Objective - Vital Signs Vital signs: Vital Signs Temp 97.5 F L 04/25/21 10:07 Pulse 77 04/25/21 10:07 Resp 19 04/25/21 10:07 BP 156/79 04/25/21 10:07 Pulse Ox 93 L 04/25/21 10:07 Intake & Output 04/24/21 04/25/21 04/25/21 18:59 06:59 18:59 Intake Total 1080 Output Total 1000 800 Balance 80 -800 Intake: Oral 1080 Output: Urine 1000 800 Other: Voiding Method External Catheter # Voids 1 - Exam GENERAL EXAM: Alert, very pleasant, 75-year-old white female, on 8 L of oxygen with pulse ox of 92% comfortable in no apparent distress. HEAD: Normocephalic/atraumatic. EYES: Normal reaction of pupils, equal size. Conjunctiva pink, sclera white. NOSE: Clear with pink turbinates. THROAT: No erythema or exudates. NECK: No masses, no JVD, no thyroid enlargement, no adenopathy. CHEST: No chest wall deformity. Symmetrical expansion. LUNGS: Equal air entry with diffuse wheezes CVS: Regular rate and rhythm, normal S1 and S2, no gallops, no murmurs, no rubs ABDOMEN: Soft, nontender. No hepatosplenomegaly, normal bowel sounds, no guarding or rigidity. EXTREMITIES: No clubbing, no edema, no cyanosis, 2+ pulses and upper and lower extremities. MUSCULOSKELETAL: Muscle strength and tone normal. SPINE: No scoliosis or deformity SKIN: No rashes CENTRAL NERVOUS SYSTEM: Alert and oriented -3. No focal deficits, tone is normal in all 4 extremities. PSYCHIATRIC: Alert and oriented -3. Appropriate affect. Intact judgment and insight. - Labs CBC & Chem 7: 04/24/21 06:02 04/24/21 06:02 Labs: Abnormal Lab Results - Last 24 Hours (Table) 04/25/21 04/25/21 Range/Units 06:14 06:14 PT 19.7 H (9.0-12.0) sec INR 2.0 H (<1.2) Lactate Dehydrogenase 477 H (120-246) U/L Assessment and Plan Plan: Assessment: #1. Acute hypoxic respiratory failure related to acute COVID-19 pneumonia. Patient came into the emergency department after symptom onset 10 days ago, patient is status post monoclonal antibody infusion on 04/16/2021. Patient is not vaccinated against COVID-19. She is currently up to 8 L of oxygen #2. Previous history of DVT and PE on Coumadin #3. Hypertension #4. Osteoporosis arthritis #5. Fibromyalgia #6. Former smoker #7. History of hysterectomy #8. Supratherapeutic INR, 6.9 on today's labs, will receive 2.5 mg of vitamin K Plan: Continue current medical treatment Continue Decadron 6 mg twice daily Continue Coumadin Continue COVID-19 vitamins Today's chest x-ray has been reviewed showing stable interstitial densities Cutback IV fluids to KVO Inflammatory markers are improving We'll continue to follow I performed a history & physical examination of the patient and discussed their management with my nurse practitioner, Silvia Ozuna. I reviewed the nurse practitioner's note and agree with the documented findings and plan of care. Lung sounds are positive for diminished breath sounds throughout the lung chu. The findings and the impression was discussed with the patient. I attest to the documentation by the nurse practitioner. Time with Patient: Less than 30
[2021-04-25 13:10] LABS: C Reactive Protein 1.8 mg/dL (0.00-0.80)
[2021-04-25] MEDS: ACETAMINOPHEN TAB 325 MG TAB PO PRN (14:54)
--- NOTE | 2021-04-25 15:07 | P.PN ---
Subjective Progress Note Date: 04/24/21 Rosie Mercer, is a 75-year-old female who presented to [facility] emergency room with a chief complaint of worsening shortness of breath She was evaluated in the emergency room vital examination on presentation revealed a temperature of 98.4 pulse 91 respiration 22 blood pressure 172/74 p ulse ox 94% on 6 L nasal cannula and 86% on room air Laboratory data revealed a white blood count of 8.1 hemoglobin 14.6 platelet count 264 INR 3.3 BUN 17 creatinine 0.63 LDH 1061 C-reactive protein 17.3 patient has a known history of positive COVID-19 PCR testing about 1 week ago she came to emergency room and received IV infusion of antibodies last week she was doing well for few days since she started having worsening shortness of breath Testing in the emergency room revealed chest x-ray done in the emergency room revealed bilateral pulmonary infiltrates consistent with pneumonia EKG revealed normal sinus rhythm normal EKG Patient was admitted to medical floor for further evaluation and treatment Past medical history is significant for history of hypertension, history of hyperlipidemia, 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 history of osteoarthritis, history of morbid obesity, On 04/23/2021 patient was seen and examined on the medical floor she is alert and oriented 3 in no apparent distress she is still complaining of shortness of breath and cough otherwise she denies any complaints, vital exam reveals a temperature of 99 pulse 84 respirations 17 blood pressure 174/82 pulse ox 90% on 8 L nasal cannula her white blood count is up to 12.8 hemoglobin 13.2 platelet count 323 INR 3.3 BUN 17 creatinine 0.53 On 04/24/2021 patient was seen and examined on the medical floor she is alert and oriented 3 in no apparent distress, she had an episode of severe anxiety was mild agitation this morning she received IV Ativan and she has settled down at this time her vital exam reveals a temperature of 97.5 pulse 79 respiration 16 and blood pressure 159/77 pulse ox 92% on 8 L nasal cannula white blood count is 14.3 hemoglobin 13.2 platelet count 287 INR is elevated at 6.9 BUN 16 creatinine 0.54 Objective - Vital Signs Vital signs: Vital Signs Temp 97.4 F L 04/24/21 05:19 Pulse 80 04/24/21 05:19 Resp 16 04/24/21 01:19 BP 150/71 04/24/21 05:19 Pulse Ox 92 L 04/24/21 08:22 Intake & Output 04/23/21 04/24/21 04/24/21 18:59 06:59 18:59 Output Total 600 400 Balance -600 -400 Output: Urine 600 400 Other: Voiding Method External Catheter - Exam In general patient is alert and oriented x 3 in no distress HEENT head normocephalic and atraumatic Neck is supple no JVD no goiter no lymphadenopathy no carotid bruit Chest examination reveals scattered crackles bilaterally with wheezing Cardiac exam reveals regular heart sounds S1 and S2 no gallops no murmurs Abdomen is soft nontender no organomegaly with normal bowel sounds Extremity exam reveals no edema no cyanosis or clubbing Neurological examination reveals no gross focal deficits - Labs CBC & Chem 7: 04/24/21 06:02 04/24/21 06:02 Labs: Abnormal Lab Results - Last 24 Hours (Table) 04/23/21 04/24/21 04/24/21 Range/Units 07:25 06:02 06:02 WBC 12.83 H 14.3 H (4.50-10.00) X 10*3/uL MCHC 31.5 L (32.0-37.0) g/dL RDW 15.3 H (11.5-14.5) % MPV 9.3 L (9.5-12.2) fL Immature Gran # 0.06 H (0.00-0.04) X 10*3/uL Neutrophils # 11.28 H 12.9 H (1.80-7.70) X 10*3/uL Lymphocytes # 0.6 L (1.0-4.8) k/uL Eosinophils # 0 L (0.04-0.35) X 10*3/uL PT 67.4 H (9.0-12.0) sec INR 6.9 H* (<1.2) Chloride (98-107) mmol/L Glucose (74-99) mg/dL Total Protein (6.3-8.2) g/dL Albumin (3.5-5.0) g/dL 04/24/21 Range/Units 06:02 WBC (4.50-10.00) X 10*3/uL MCHC (32.0-37.0) g/dL RDW (11.5-14.5) % MPV (9.5-12.2) fL Immature Gran # (0.00-0.04) X 10*3/uL Neutrophils # (1.80-7.70) X 10*3/uL Lymphocytes # (1.0-4.8) k/uL Eosinophils # (0.04-0.35) X 10*3/uL PT (9.0-12.0) sec INR (<1.2) Chloride 112 H (98-107) mmol/L Glucose 139 H (74-99) mg/dL Total Protein 5.5 L (6.3-8.2) g/dL Albumin 2.7 L (3.5-5.0) g/dL Assessment and Plan Plan: Acute COVID-19 pneumonia Acute hypoxic respiratory failure Underlying history of hypertension Underlying history of hyperlipidemia Underlying history of lower extremity DVT maintained on Coumadin Underlying history of osteoarthritis Underlying history of morbid obesity Underlying history of degenerative disc disease maintained on narcotics for pain management Underlying history of anxiety disorder At this time patient is admitted to medical floor She was started on IV Decadron in the emergency room Patient is maintained on Coumadin and her INR is slightly on the high side at 3.3 Pulmonary and critical care consultation was requested
[2021-04-25] MEDS ORDERED: WARFARIN 2 MG TAB PO ONE (18:00)
[2021-04-26] MEDS: SODIUM CHLORIDE 0.9% 1,000 ML IV SCH ×3 (00:49→15:19)
[2021-04-26 08:05] LABS: INR 1.6 (<1.2); Prothrombin Time 16.4 sec (9.0-12.0)
[2021-04-26] MEDS: DEXAMETHASONE SOD PHOSPHATE 4 MG/ML 1 ML VIAL IVP SCH ×2 (09:07→20:33)
[2021-04-26] MEDS: amLODIPine 5 MG TAB PO SCH (09:25)
[2021-04-26] MEDS: ZINC SULFATE 220 MG CAP PO SCH (09:25)
[2021-04-26] MEDS: ASCORBIC ACID 500 MG TAB PO SCH ×2 (09:25→20:33)
[2021-04-26] MEDS: CHOLECALCIFEROL 10 MCG (400 IU) TABLET PO SCH (09:25)
[2021-04-26] MEDS: oxyCODONE-APAP 10-325MG 1 EACH TAB PO SCH ×2 (09:25→17:02)
--- NOTE | 2021-04-26 10:08 | P.PN ---
Subjective Progress Note Date: 04/25/21 Rosie Mercer, is a 75-year-old female who presented to [facility] emergency room with a chief complaint of worsening shortness of breath She was evaluated in the emergency room vital examination on presentation revealed a temperature of 98.4 pulse 91 respiration 22 blood pressure 172/74 p ulse ox 94% on 6 L nasal cannula and 86% on room air Laboratory data revealed a white blood count of 8.1 hemoglobin 14.6 platelet count 264 INR 3.3 BUN 17 creatinine 0.63 LDH 1061 C-reactive protein 17.3 patient has a known history of positive COVID-19 PCR testing about 1 week ago she came to emergency room and received IV infusion of antibodies last week she was doing well for few days since she started having worsening shortness of breath Testing in the emergency room revealed chest x-ray done in the emergency room revealed bilateral pulmonary infiltrates consistent with pneumonia EKG revealed normal sinus rhythm normal EKG Patient was admitted to medical floor for further evaluation and treatment Past medical history is significant for history of hypertension, history of hyperlipidemia, 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 history of osteoarthritis, history of morbid obesity, On 04/23/2021 patient was seen and examined on the medical floor she is alert and oriented 3 in no apparent distress she is still complaining of shortness of breath and cough otherwise she denies any complaints, vital exam reveals a temperature of 99 pulse 84 respirations 17 blood pressure 174/82 pulse ox 90% on 8 L nasal cannula her white blood count is up to 12.8 hemoglobin 13.2 platelet count 323 INR 3.3 BUN 17 creatinine 0.53 On 04/24/2021 patient was seen and examined on the medical floor she is alert and oriented 3 in no apparent distress, she had an episode of severe anxiety was mild agitation this morning she received IV Ativan and she has settled down at this time her vital exam reveals a temperature of 97.5 pulse 79 respiration 16 and blood pressure 159/77 pulse ox 92% on 8 L nasal cannula white blood count is 14.3 hemoglobin 13.2 platelet count 287 INR is elevated at 6.9 BUN 16 creatinine 0.54 On 04/25/2021 patient was seen and examined on the medical floor she is alert and oriented 3 in no apparent distress she is still complaining of shortness of breath and cough otherwise she denies any complaints, vital exam reveals a temperature of 97.5 pulse 77 respirations 19 blood pressure 156/79 pulse ox 93% on 11 L nasal cannula her white blood count is up to 12.8 hemoglobin 13.2 platelet count 323 INR 3.3 BUN 17 creatinine 0.53 Objective - Vital Signs Vital signs: Vital Signs Temp 97.5 F L 04/25/21 10:07 Pulse 77 04/25/21 10:07 Resp 19 04/25/21 10:07 BP 156/79 04/25/21 10:07 Pulse Ox 93 L 04/25/21 10:07 Intake & Output 04/24/21 04/25/21 04/25/21 18:59 06:59 18:59 Intake Total 1080 Output Total 1000 800 Balance 80 -800 Intake: Oral 1080 Output: Urine 1000 800 Other: Voiding Method External Catheter # Voids 1 - Exam In general patient is alert and oriented x 3 in no distress HEENT head normocephalic and atraumatic Neck is supple no JVD no goiter no lymphadenopathy no carotid bruit Chest examination reveals scattered crackles bilaterally with wheezing Cardiac exam reveals regular heart sounds S1 and S2 no gallops no murmurs Abdomen is soft nontender no organomegaly with normal bowel sounds Extremity exam reveals no edema no cyanosis or clubbing Neurological examination reveals no gross focal deficits - Labs CBC & Chem 7: 04/24/21 06:02 04/24/21 06:02 Labs: Abnormal Lab Results - Last 24 Hours (Table) 04/25/21 04/25/21 Range/Units 06:14 06:14 PT 19.7 H (9.0-12.0) sec INR 2.0 H (<1.2) Lactate Dehydrogenase 477 H (120-246) U/L C-Reactive Protein 1.80 H (0.00-0.80) mg/dL Assessment and Plan Plan: Acute COVID-19 pneumonia Acute hypoxic respiratory failure Underlying history of hypertension Underlying history of hyperlipidemia Underlying history of lower extremity DVT maintained on Coumadin Underlying history of osteoarthritis Underlying history of morbid obesity Underlying history of degenerative disc disease maintained on narcotics for pain management Underlying history of anxiety disorder At this time patient is admitted to medical floor She was started on IV Decadron in the emergency room Patient is maintained on Coumadin and her INR is slightly on the high side at 3.3 Pulmonary and critical care consultation was requested
--- NOTE | 2021-04-26 13:16 | P.PN ---
Subjective Progress Note Date: 04/26/21 Principal diagnosis: Acute COVID-19 pneumonia 75-year-old female patient, being hospitalized for COVID 19 related to pneumonia. Her brother is currently hospitalized for the same. Note that she had her household were all infected with COVID 19 and this includes her brother and daughter. Note that this is a not vaccinated individual. Her symptoms started approximately 9-10 days ago. She became symptomatic on 04/16/2021. She checked herself and she turn sewer to be positive. At that point, she came into the emergency department on 04/16/2021 and she was having some increased cough and body aches. And the patient was having also some increased nausea along with body aches and cough. In the emergency, the patient received monoclonal antibodies on 04/16/2021 and she was discharged home. Subsequently, her condition got worse and for that reason she came back to the hospital. Currently she had diffuse bilateral pulmonary infiltrates. She is on 6 L of oxygen by nasal cannula. Her chest x-ray is consistent with COVID 19 related pneumonia. The patient has diffuse bilateral pulmonary infiltrates. Meanwhile, the white cell count is at 8, lymphocyte count is at 0.5, INR is at 3.3 and the patient limited on warfarin outpatient basis, normal electrolytes, normal renal function, LVH level is 1061, CRP level is at 17, proBNP level is at 329. I was asked even with this patient. I saw her in the emergency. I have her currently on Decadron and should be placed on a Decadron dose of 6 mg IV every 12 hours. She is also receiving IV fluids at the rate of 130 mL an hour. 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 She has fibromyalgia and osteoarthritis and hypertension as comorbid conditions. On 04/23/2001 patient seen in follow-up on medical surgical floor. She is currently up to 8 L of oxygen pulse ox is 90%, she is still wheezing, but denies any acute distress. Afebrile. Patient remains on Decadron 6 blood gram twice daily, she is on 0.9 normal saline at a rate of 150 ML per hour, and Coumadin. Her INR is 3.3. As the labs have been reviewed, white blood cell count is 12.8, hemoglobin is 13.2, sodium is 141, potassium is 4.9, chloride is 112, BUN is 17 creatinine 0.53. On 04/24/2021 patient seen on medical surgical floor. She is awake and alert, she is currently on 8 L of oxygen her pulse ox is 92%, she sat up in the chair, she is short of breath with conversation, but overall she states she is feeling better sitting up in the chair, complaints of chest pain, she remains on Decadron 6 mg every 12 hours, she continues on COVID-19 vitamins, and she is on Coumadin for anticoagulation, today's INR is 6.9 and her Coumadin will be held, patient will receive 2.5 mg of oral vitamin K. There is some blood work has been reviewed, white blood cell, 14.3, hemoglobin is 13.2, electrolytes and renal profile are unremarkable, the patient remains on IV hydration with plan on adenosine at a rate of 130 ML per hour. On 04/25/2021 patient seen in follow-up on medical surgical floor. She is currently on 8 L of oxygen with a pulse ox of 90-92%. FiO2 has been increased compared to yesterday when she was on 7 L. Chest x-ray showing diffuse interstitial opacities similar to prior exam. She feels chilled on today's exam, but there is been no recorded fevers overnight, vital signs have been stable. Lung sounds reveal diffuse crackles, occasional cough, no phlegm production. She remains on Decadron 6 mg twice daily, she continues on IV hydration with 0.9 normal saline at around 75 ML per hour, COVID-19 vitamins, and Coumadin. Today she was given vitamin K for supratherapeutic INR of 6.9, and INR today is down to 2.0. Today's LDH has significantly improved and is at 477 down from 1061. CRP is pending. On 04/26/2021 patient seen in follow-up on medical surgical floor. She is resting in bed, she remains on 8 L of oxygen, she is on 10 L of oxygen her pulse ox is 91%. She denies worsening dyspnea however she still complaining of a headache, she is complaining of chills all over. She has a mild cough, no chest discomfort, no phlegm production. His been afebrile. She remains on Decadron 6 kg twice daily, she is on Coumadin for anticoagulation, and she is on COVID-19 vitamins, today's INR is 1.6. Her inflammatory markers were improving and yesterday's labs. Denies nausea vomiting or diarrhea. Objective - Vital Signs Vital signs: Vital Signs Temp 97.8 F 04/26/21 10:00 Pulse 66 04/26/21 10:00 Resp 20 04/26/21 10:00 BP 164/73 04/26/21 10:00 Pulse Ox 92 L 04/26/21 10:00 Intake & Output 04/25/21 04/26/21 04/26/21 18:59 06:59 18:59 Intake Total 120 240 Output Total 450 Balance 120 -210 Intake: IV 120 Sodium Chloride 0.9% 1, 120 000 ml @ 10 mls/hr IV . Q[facility]H [facility] Rx#:[id number] Oral 240 Output: Urine 450 Other: Voiding Method External Catheter External Catheter - Exam GENERAL EXAM: Alert, very pleasant, 75-year-old white female, on 10 L of oxygen with pulse ox of 92% comfortable in no apparent distress. HEAD: Normocephalic/atraumatic. EYES: Normal reaction of pupils, equal size. Conjunctiva pink, sclera white. NOSE: Clear with pink turbinates. THROAT: No erythema or exudates. NECK: No masses, no JVD, no thyroid enlargement, no adenopathy. CHEST: No chest wall deformity. Symmetrical expansion. LUNGS: Equal air entry with diffuse wheezes CVS: Regular rate and rhythm, normal S1 and S2, no gallops, no murmurs, no rubs ABDOMEN: Soft, nontender. No hepatosplenomegaly, normal bowel sounds, no guarding or rigidity. EXTREMITIES: No clubbing, no edema, no cyanosis, 2+ pulses and upper and lower extremities. MUSCULOSKELETAL: Muscle strength and tone normal. SPINE: No scoliosis or deformity SKIN: No rashes CENTRAL NERVOUS SYSTEM: Alert and oriented -3. No focal deficits, tone is normal in all 4 extremities. PSYCHIATRIC: Alert and oriented -3. Appropriate affect. Intact judgment and insight. - Labs CBC & Chem 7: 04/24/21 06:02 04/24/21 06:02 Labs: Abnormal Lab Results - Last 24 Hours (Table) 04/26/21 Range/Units 07:28 PT 16.4 H (9.0-12.0) sec INR 1.6 H (<1.2) Assessment and Plan Plan: Assessment: #1. Acute hypoxic respiratory failure related to acute COVID-19 pneumonia. Patient came into the emergency department after symptom onset 10 days ago, patient is status post monoclonal antibody infusion on 04/16/2021. Patient is not vaccinated against COVID-19. She is currently up to 10 L of oxygen #2. Previous history of DVT and PE on Coumadin #3. Hypertension #4. Osteoporosis arthritis #5. Fibromyalgia #6. Former smoker #7. History of hysterectomy #8. Supratherapeutic INR, 6.9 on today's labs, will receive 2.5 mg of vitamin K Plan: Continue current medical treatment Continue Decadron 6 mg twice daily Continue Coumadin Continue COVID-19 vitamins Inflammatory markers are improving on yesterday's labs Patient is up to 10 L per high flow nasal cannula If her oxygen demand continues to increase we'll consider Baricitinib We'll continue to follow I performed a history & physical examination of the patient and discussed their management with my nurse practitioner, Silvia Ozuna. I reviewed the nurse practitioner's note and agree with the documented findings and plan of care. Lung sounds are positive for diminished breath sounds throughout the lung chu. The findings and the impression was discussed with the patient. I attest to the documentation by the nurse practitioner. Time with Patient: Less than 30
[2021-04-26] MEDS ORDERED: WARFARIN 2 MG TAB PO ONE (18:00)
--- NOTE | 2021-04-26 19:16 | P.PN ---
Subjective Progress Note Date: 04/26/21 Rosie Mercer, is a 75-year-old female who presented to [facility] emergency room with a chief complaint of worsening shortness of breath She was evaluated in the emergency room vital examination on presentation revealed a temperature of 98.4 pulse 91 respiration 22 blood pressure 172/74 p ulse ox 94% on 6 L nasal cannula and 86% on room air Laboratory data revealed a white blood count of 8.1 hemoglobin 14.6 platelet count 264 INR 3.3 BUN 17 creatinine 0.63 LDH 1061 C-reactive protein 17.3 patient has a known history of positive COVID-19 PCR testing about 1 week ago she came to emergency room and received IV infusion of antibodies last week she was doing well for few days since she started having worsening shortness of breath Testing in the emergency room revealed chest x-ray done in the emergency room revealed bilateral pulmonary infiltrates consistent with pneumonia EKG revealed normal sinus rhythm normal EKG Patient was admitted to medical floor for further evaluation and treatment Past medical history is significant for history of hypertension, history of hyperlipidemia, 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 history of osteoarthritis, history of morbid obesity, On 04/23/2021 patient was seen and examined on the medical floor she is alert and oriented 3 in no apparent distress she is still complaining of shortness of breath and cough otherwise she denies any complaints, vital exam reveals a temperature of 99 pulse 84 respirations 17 blood pressure 174/82 pulse ox 90% on 8 L nasal cannula her white blood count is up to 12.8 hemoglobin 13.2 platelet count 323 INR 3.3 BUN 17 creatinine 0.53 On 04/24/2021 patient was seen and examined on the medical floor she is alert and oriented 3 in no apparent distress, she had an episode of severe anxiety was mild agitation this morning she received IV Ativan and she has settled down at this time her vital exam reveals a temperature of 97.5 pulse 79 respiration 16 and blood pressure 159/77 pulse ox 92% on 8 L nasal cannula white blood count is 14.3 hemoglobin 13.2 platelet count 287 INR is elevated at 6.9 BUN 16 creatinine 0.54 On 04/25/2021 patient was seen and examined on the medical floor she is alert and oriented 3 in no apparent distress she is still complaining of shortness of breath and cough otherwise she denies any complaints, vital exam reveals a temperature of 97.5 pulse 77 respirations 19 blood pressure 156/79 pulse ox 93% on 11 L nasal cannula her white blood count is up to 12.8 hemoglobin 13.2 platelet count 323 INR 3.3 BUN 17 creatinine 0.53 On 04/26/2021 patient was seen and examined on the medical floor she is alert and oriented 3 in no apparent distress she is sitting up in a chair she is still complaining of severe shortness of breath and cough she is also complaining of constipation for 3 days, otherwise she denies any complaints there is no fever or chills no headache or dizziness no chest pain no nausea or vomiting no abdominal pain no diarrhea and no urinary symptoms, she is maintained on oxygen via high flow cannula her pulse ox is 90% on 10 L of oxygen Objective - Vital Signs Vital signs: Vital Signs Temp 97.5 F L 04/26/21 05:32 Pulse 76 04/26/21 05:32 Resp 16 04/26/21 05:32 BP 182/81 04/26/21 05:32 Pulse Ox 91 L 04/26/21 09:14 Intake & Output 04/25/21 04/26/21 04/26/21 18:59 06:59 18:59 Intake Total 120 240 Output Total 450 Balance 120 -210 Intake: IV 120 Sodium Chloride 0.9% 1, 120 000 ml @ 10 mls/hr IV . Q24H [facility] Rx#:[id number] Oral 240 Output: Urine 450 Other: Voiding Method External Catheter External Catheter - Exam In general patient is alert and oriented x 3 in no distress HEENT head normocephalic and atraumatic Neck is supple no JVD no goiter no lymphadenopathy no carotid bruit Chest examination reveals scattered crackles bilaterally with wheezing Cardiac exam reveals regular heart sounds S1 and S2 no gallops no murmurs Abdomen is soft nontender no organomegaly with normal bowel sounds Extremity exam reveals no edema no cyanosis or clubbing Neurological examination reveals no gross focal deficits - Labs CBC & Chem 7: 04/24/21 06:02 04/24/21 06:02 Labs: Abnormal Lab Results - Last 24 Hours (Table) 04/25/21 04/26/21 Range/Units 06:14 07:28 PT 16.4 H (9.0-12.0) sec INR 1.6 H (<1.2) C-Reactive Protein 1.80 H (0.00-0.80) mg/dL Assessment and Plan Plan: Acute COVID-19 pneumonia Acute hypoxic respiratory failure Underlying history of hypertension Underlying history of hyperlipidemia Underlying history of lower extremity DVT maintained on Coumadin Underlying history of osteoarthritis Underlying history of morbid obesity Underlying history of degenerative disc disease maintained on narcotics for pain management Underlying history of anxiety disorder At this time patient is admitted to medical floor She was started on IV Decadron in the emergency room Patient is maintained on Coumadin and her INR is slightly on the high side at 3.3 Pulmonary and critical care consultation was requested
[2021-04-26] MEDS: LACTULOSE 20 GM/30 ML CUP PO SCH (20:34)
[2021-04-27] MEDS: SODIUM CHLORIDE 0.9% 1,000 ML IV SCH ×4 (00:04→20:06)
[2021-04-27] MEDS: oxyCODONE-APAP 10-325MG 1 EACH TAB PO SCH ×3 (00:11→16:57)
[2021-04-27 05:25] LABS: INR 1.9 (<1.2); Prothrombin Time 18.5 sec (9.0-12.0)
[2021-04-27] MEDS: DEXAMETHASONE SOD PHOSPHATE 4 MG/ML 1 ML VIAL IVP SCH ×2 (07:20→20:06)
--- NOTE | 2021-04-27 07:36 | XR ---
EXAMINATION TYPE: XR chest 1V portable DATE OF EXAM: 04/27/2021 Comparison: 04/25/2021 Clinical History: 75-year-old female covid Findings: Heart mildly enlarged. Diffuse interstitial changes and patchy confluent peripheral airspace opacitie s persist without significant change. No appreciable pneumothorax. Impression: Continued bilateral COVID pneumonia.
[2021-04-27 08:33] VITALS: BMI 39.4
[2021-04-27] MEDS: ASCORBIC ACID 500 MG TAB PO SCH ×2 (09:11→20:06)
[2021-04-27] MEDS: CHOLECALCIFEROL 10 MCG (400 IU) TABLET PO SCH (09:11)
[2021-04-27] MEDS: amLODIPine 5 MG TAB PO SCH (09:11)
[2021-04-27] MEDS: ZINC SULFATE 220 MG CAP PO SCH (09:11)
[2021-04-27] MEDS: LACTULOSE 20 GM/30 ML CUP PO SCH (09:12)
--- NOTE | 2021-04-27 11:29 | P.PN ---
Subjective Progress Note Date: 04/27/21 Principal diagnosis: Acute COVID-19 pneumonia 75-year-old female patient, being hospitalized for COVID 19 related to pneumonia. Her brother is currently hospitalized for the same. Note that she had her household were all infected with COVID 19 and this includes her brother and daughter. Note that this is a not vaccinated individual. Her symptoms started approximately 9-10 days ago. She became symptomatic on 04/16/2021. She checked herself and she return agent airport to be positive. At that point, she came into the emergency department on 04/16/2021 and she was having some increased cough and body aches. And the patient was having also some increased nausea along with body aches and cough. In the emergency, the patient received monoclonal antibodies on 04/16/2021 and she was discharged home. Subsequently, her condition got worse and for that reason she came back to the hospital. Currently she had diffuse bilateral pulmonary infiltrates. She is on 6 L of oxygen by nasal cannula. Her chest x-ray is consistent with COVID 19 related pneumonia. The patient has diffuse bilateral pulmonary infiltrates. Meanwhile, the white cell count is at 8, lymphocyte count is at 0.5, INR is at 3.3 and the patient limited on warfarin outpatient basis, normal electrolytes, normal renal function, LVH level is 1061, CRP level is at 17, proBNP level is at 329. I was asked even with this patient. I saw her in the emergency. I have her currently on Decadron and should be placed on a Decadron dose of 6 mg IV every 12 hours. She is also receiving IV fluids at the rate of 130 mL an hour. 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 She has fibromyalgia and osteoarthritis and hypertension as comorbid conditions. On 04/23/2001 patient seen in follow-up on medical surgical floor. She is currently up to 8 L of oxygen pulse ox is 90%, she is still wheezing, but denies any acute distress. Afebrile. Patient remains on Decadron 6 blood gram twice daily, she is on 0.9 normal saline at a rate of 150 ML per hour, and Coumadin. Her INR is 3.3. As the labs have been reviewed, white blood cell count is 12.8, hemoglobin is 13.2, sodium is 141, potassium is 4.9, chloride is 112, BUN is 17 creatinine 0.53. On 04/24/2021 patient seen on medical surgical floor. She is awake and alert, she is currently on 8 L of oxygen her pulse ox is 92%, she sat up in the chair, she is short of breath with conversation, but overall she states she is feeling better sitting up in the chair, complaints of chest pain, she remains on Decadron 6 mg every 12 hours, she continues on COVID-19 vitamins, and she is on Coumadin for anticoagulation, today's INR is 6.9 and her Coumadin will be held, patient will receive 2.5 mg of oral vitamin K. There is some blood work has been reviewed, white blood cell, 14.3, hemoglobin is 13.2, electrolytes and renal profile are unremarkable, the patient remains on IV hydration with plan on adenosine at a rate of 130 ML per hour. On 04/25/2021 patient seen in follow-up on medical surgical floor. She is currently on 8 L of oxygen with a pulse ox of 90-92%. FiO2 has been increased compared to yesterday when she was on 7 L. Chest x-ray showing diffuse interstitial opacities similar to prior exam. She feels chilled on today's exam, but there is been no recorded fevers overnight, vital signs have been stable. Lung sounds reveal diffuse crackles, occasional cough, no phlegm production. She remains on Decadron 6 mg twice daily, she continues on IV hydration with 0.9 normal saline at around 75 ML per hour, COVID-19 vitamins, and Coumadin. Today she was given vitamin K for supratherapeutic INR of 6.9, and INR today is down to 2.0. Today's LDH has significantly improved and is at 477 down from 1061. CRP is pending. On 04/26/2021 patient seen in follow-up on medical surgical floor. She is resting in bed, she remains on 8 L of oxygen, she is on 10 L of oxygen her pulse ox is 91%. She denies worsening dyspnea however she still complaining of a headache, she is complaining of chills all over. She has a mild cough, no chest discomfort, no phlegm production. His been afebrile. She remains on Decadron 6 kg twice daily, she is on Coumadin for anticoagulation, and she is on COVID-19 vitamins, today's INR is 1.6. Her inflammatory markers were improving and yesterday's labs. Denies nausea vomiting or diarrhea. On 04/27/2021 patient seen in follow-up on medical surgical floor. She is currently on 10 L of oxygen pulse ox is 95%. Today's chest x-ray showing continued bilateral cord pneumonia. Denies 1.9 on today's labs. There is the inflammatory markers are still pending for today. She has a mild cough, but no chills, no headaches, overall she states she is feeling a little better today, breathing a bit easier. And oxygen saturations are somewhat improved on today's vitals Objective - Vital Signs Vital signs: Vital Signs Temp 97.7 F 04/27/21 10:00 Pulse 79 04/27/21 10:00 Resp 16 04/27/21 10:00 BP 184/80 04/27/21 10:00 Pulse Ox 95 04/27/21 10:00 Intake & Output 04/26/21 04/27/21 04/27/21 18:59 06:59 18:59 Output Total 900 Balance -900 Weight 104.326 kg Output: Urine 900 Other: Voiding Method External Catheter # Bowel Movements 1 - Exam GENERAL EXAM: Alert, very pleasant, 75-year-old white female, on 10 L of oxygen with pulse ox of 95% comfortable in no apparent distress. HEAD: Normocephalic/atraumatic. EYES: Normal reaction of pupils, equal size. Conjunctiva pink, sclera white. NOSE: Clear with pink turbinates. THROAT: No erythema or exudates. NECK: No masses, no JVD, no thyroid enlargement, no adenopathy. CHEST: No chest wall deformity. Symmetrical expansion. LUNGS: Equal air entry with minimal crackles on today's exam CVS: Regular rate and rhythm, normal S1 and S2, no gallops, no murmurs, no rubs ABDOMEN: Soft, nontender. No hepatosplenomegaly, normal bowel sounds, no guarding or rigidity. EXTREMITIES: No clubbing, no edema, no cyanosis, 2+ pulses and upper and lower extremities. MUSCULOSKELETAL: Muscle strength and tone normal. SPINE: No scoliosis or deformity SKIN: No rashes CENTRAL NERVOUS SYSTEM: Alert and oriented -3. No focal deficits, tone is normal in all 4 extremities. PSYCHIATRIC: Alert and oriented -3. Appropriate affect. Intact judgment and insight. - Labs CBC & Chem 7: 04/24/21 06:02 04/24/21 06:02 Labs: Abnormal Lab Results - Last 24 Hours (Table) 04/27/21 Range/Units 04:58 PT 18.5 H (9.0-12.0) sec INR 1.9 H (<1.2) Assessment and Plan Plan: Assessment: #1. Acute hypoxic respiratory failure related to acute COVID-19 pneumonia. Patient came into the emergency department after symptom onset 10 days ago, patient is status post monoclonal antibody infusion on 04/16/2021. Patient is not vaccinated against COVID-19. She is currently up to 10 L of oxygen with a pulse ox of 95% #2. Previous history of DVT and PE on Coumadin #3. Hypertension #4. Osteoporosis arthritis #5. Fibromyalgia #6. Former smoker #7. History of hysterectomy #8. Supratherapeutic INR, 6.9 on today's labs, will receive 2.5 mg of vitamin K Plan: Continue current medical treatment Weaning FiO2 to keep O2 sat saturation is above 90% continue Decadron, Lovenox Continue vitamins Seems to be a bit improved on today's exam breathing easier Continue to follow her clinical course I performed a history & physical examination of the patient and discussed their management with my nurse practitioner, Silvia Ozuna. I reviewed the nurse practitioner's note and agree with the documented findings and plan of care. Lung sounds are positive for diminished breath sounds throughout the lung chu. The findings and the impression was discussed with the patient. I attest to the documentation by the nurse practitioner. Time with Patient: Less than 30
[2021-04-27 13:06] LABS: C Reactive Protein 0.7 mg/dL (0.00-0.80)
[2021-04-27] MEDS: IBUPROFEN 400 MG TAB PO PRN (13:17)
--- NOTE | 2021-04-27 13:46 | P.PN ---
Subjective Progress Note Date: 04/27/21 Rosie Mercer, is a 75-year-old female who presented to [facility] emergency room with a chief complaint of worsening shortness of breath She was evaluated in the emergency room vital examination on presentation revealed a temperature of 98.4 pulse 91 respiration 22 blood pressure 172/74 p ulse ox 94% on 6 L nasal cannula and 86% on room air Laboratory data revealed a white blood count of 8.1 hemoglobin 14.6 platelet count 264 INR 3.3 BUN 17 creatinine 0.63 LDH 1061 C-reactive protein 17.3 patient has a known history of positive COVID-19 PCR testing about 1 week ago she came to emergency room and received IV infusion of antibodies last week she was doing well for few days since she started having worsening shortness of breath Testing in the emergency room revealed chest x-ray done in the emergency room revealed bilateral pulmonary infiltrates consistent with pneumonia EKG revealed normal sinus rhythm normal EKG Patient was admitted to medical floor for further evaluation and treatment Past medical history is significant for history of hypertension, history of hyperlipidemia, 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 history of osteoarthritis, history of morbid obesity, On 04/23/2021 patient was seen and examined on the medical floor she is alert and oriented 3 in no apparent distress she is still complaining of shortness of breath and cough otherwise she denies any complaints, vital exam reveals a temperature of 99 pulse 84 respirations 17 blood pressure 174/82 pulse ox 90% on 8 L nasal cannula her white blood count is up to 12.8 hemoglobin 13.2 platelet count 323 INR 3.3 BUN 17 creatinine 0.53 On 04/24/2021 patient was seen and examined on the medical floor she is alert and oriented 3 in no apparent distress, she had an episode of severe anxiety was mild agitation this morning she received IV Ativan and she has settled down at this time her vital exam reveals a temperature of 97.5 pulse 79 respiration 16 and blood pressure 159/77 pulse ox 92% on 8 L nasal cannula white blood count is 14.3 hemoglobin 13.2 platelet count 287 INR is elevated at 6.9 BUN 16 creatinine 0.54 On 04/25/2021 patient was seen and examined on the medical floor she is alert and oriented 3 in no apparent distress she is still complaining of shortness of breath and cough otherwise she denies any complaints, vital exam reveals a temperature of 97.5 pulse 77 respirations 19 blood pressure 156/79 pulse ox 93% on 11 L nasal cannula her white blood count is up to 12.8 hemoglobin 13.2 platelet count 323 INR 3.3 BUN 17 creatinine 0.53 On 04/26/2021 patient was seen and examined on the medical floor she is alert and oriented 3 in no apparent distress she is sitting up in a chair she is still complaining of severe shortness of breath and cough she is also complaining of constipation for 3 days, otherwise she denies any complaints there is no fever or chills no headache or dizziness no chest pain no nausea or vomiting no abdominal pain no diarrhea and no urinary symptoms, she is maintained on oxygen via high flow cannula her pulse ox is 90% on 10 L of oxygen. On 04/27/2021 patient was seen and examined on the medical floor she is alert and oriented 3 in no apparent distress she is sitting up in a chair she is still complaining of shortness of breath and cough otherwise she denies any complaints there is no fever or chills no headache or dizziness no chest pain no nausea or vomiting no abdominal pain no diarrhea and no urinary symptoms, she is maintained on oxygen via high flow cannula her pulse ox is 90% on 8 L of oxygen. Objective - Vital Signs Vital signs: Vital Signs Temp 97.7 F 04/27/21 10:00 Pulse 79 04/27/21 10:00 Resp 16 04/27/21 10:00 BP 184/80 04/27/21 10:00 Pulse Ox 95 04/27/21 10:00 Intake & Output 04/26/21 04/27/21 04/27/21 18:59 06:59 18:59 Output Total 900 Balance -900 Weight 104.326 kg Output: Urine 900 Other: Voiding Method External Catheter # Bowel Movements 1 - Exam In general patient is alert and oriented x 3 in no distress HEENT head normocephalic and atraumatic Neck is supple no JVD no goiter no lymphadenopathy no carotid bruit Chest examination reveals scattered crackles bilaterally with wheezing Cardiac exam reveals regular heart sounds S1 and S2 no gallops no murmurs Abdomen is soft nontender no organomegaly with normal bowel sounds Extremity exam reveals no edema no cyanosis or clubbing Neurological examination reveals no gross focal deficits - Labs CBC & Chem 7: 04/24/21 06:02 04/24/21 06:02 Labs: Abnormal Lab Results - Last 24 Hours (Table) 04/27/21 Range/Units 04:58 PT 18.5 H (9.0-12.0) sec INR 1.9 H (<1.2) Assessment and Plan Plan: Acute COVID-19 pneumonia Acute hypoxic respiratory failure Underlying history of hypertension Underlying history of hyperlipidemia Underlying history of lower extremity DVT maintained on Coumadin Underlying history of osteoarthritis Underlying history of morbid obesity Underlying history of degenerative disc disease maintained on narcotics for pain management Underlying history of anxiety disorder At this time patient is admitted to medical floor She was started on IV Decadron in the emergency room Patient is maintained on Coumadin and her INR is slightly on the high side at 3.3 Pulmonary and critical care consultation was requested
[2021-04-27] MEDS ORDERED: WARFARIN 2 MG TAB PO ONE (18:00)
[2021-04-28] MEDS: oxyCODONE-APAP 10-325MG 1 EACH TAB PO SCH ×4 (00:16→23:15)
[2021-04-28] MEDS: SODIUM CHLORIDE 0.9% 1,000 ML IV SCH ×3 (05:43→21:34)
[2021-04-28] MEDS: ASCORBIC ACID 500 MG TAB PO SCH ×2 (07:49→21:33)
[2021-04-28] MEDS: ZINC SULFATE 220 MG CAP PO SCH (07:49)
[2021-04-28] MEDS: CHOLECALCIFEROL 10 MCG (400 IU) TABLET PO SCH (07:49)
[2021-04-28] MEDS: DEXAMETHASONE SOD PHOSPHATE 4 MG/ML 1 ML VIAL IVP SCH ×2 (07:49→21:33)
[2021-04-28] MEDS: amLODIPine 5 MG TAB PO SCH (07:50)
[2021-04-28] MEDS: LACTULOSE 20 GM/30 ML CUP PO SCH (07:53)
[2021-04-28 11:28] LABS: Basophils # (A) 0.03 X 10*3/uL (0.00-0.10); Basophils % (A) 0.2 %; Eosinophils # (A) 0 X 10*3/uL (0.04-0.35); Eosinophils % (A) 0 %; HCT 41.7 % (37.2-46.3); HGB 13.9 g/dL (12.0-15.0); Lymphocytes # (A) 0.54 X 10*3/uL (0.90-5.00); Lymphocytes % (A) 3.7 %; MCH 29.1 pg (27.0-32.0); MCHC 33.3 g/dL (32.0-37.0); MCV 87.2 fL (80.0-97.0); Monocytes # (A) 0.87 X 10*3/uL (0.20-1.00); Monocytes % (A) 5.9 %; Neutrophils # (A) 13.17 X 10*3/uL (1.80-7.70); Platelet Count 137 X 10*3/uL (140-440); RBC 4.78 X 10*6/uL (4.10-5.20); WBC 14.78 X 10*3/uL (4.50-10.00)
[2021-04-28 11:50] LABS: INR 2.74 (0.90-1.11); Prothrombin Time 29.5 sec (9.9-11.9)
[2021-04-28 12:07] LABS: Albumin 2.8 g/dL (3.8-4.9); Albumin/Globulin Ratio 1.28 (1.60-3.17); BUN/Creat Ratio 29.76 Ratio (12.00-20.00); Blood Urea Nitrogen 17.5 mg/dL (9.0-27.0); Calcium 8.2 mg/dL (8.7-10.3); Carbon Dioxide 24.2 mmol/L (21.6-31.8); Globulin 2.2 g/dL (1.6-3.3); Non-African American GFR(CKD) 89.8 (60.0-200.0); Potassium 4.6 mmol/L (3.5-5.5); Total Bilirubin 0.4 mg/dL (0.30-1.20)
--- NOTE | 2021-04-28 12:26 | P.PN ---
Subjective Progress Note Date: 04/28/21 Principal diagnosis: CoVID 19 pneumonia 75-year-old female patient, being hospitalized for COVID 19 related to pneumonia. Her brother is currently hospitalized for the same. Note that she had her household were all infected with COVID 19 and this includes her brother and daughter. Note that this is a not vaccinated individual. Her symptoms started approximately 9-10 days ago. She became symptomatic on 04/16/2021. 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 At that point, she came into the emergency department on 04/16/2021 and she was having some increased cough and body aches. And the patient was having also some increased nausea along with body aches and cough. In the emergency, the patient received monoclonal antibodies on 04/16/2021 and she was discharged home. Subsequently, her condition got worse and for that reason she came back to the hospital. Currently she had diffuse bilateral pulmonary infiltrates. She is on 6 L of oxygen by nasal cannula. Her chest x-ray is consistent with COVID 19 related pneumonia. The patient has diffuse bilateral pulmonary infiltrates. Meanwhile, the white cell count is at 8, lymphocyte count is at 0.5, INR is at 3.3 and the patient limited on warfarin outpatient basis, normal electrolytes, normal renal function, LVH level is 1061, CRP level is at 17, proBNP level is at 329. I was asked even with this patient. I saw her in the emergency. I have her currently on Decadron and should be placed on a Decadron dose of 6 mg IV every 12 hours. She is also receiving IV fluids at the rate of 130 mL an hour. 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 She has fibromyalgia and osteoarthritis and hypertension as comorbid conditions. On 04/23/2001 patient seen in follow-up on medical surgical floor. She is currently up to 8 L of oxygen pulse ox is 90%, she is still wheezing, but denies any acute distress. Afebrile. Patient remains on Decadron 6 blood gram twice daily, she is on 0.9 normal saline at a rate of 150 ML per hour, and Coumadin. Her INR is 3.3. As the labs have been reviewed, white blood cell count is 12.8, hemoglobin is 13.2, sodium is 141, potassium is 4.9, chloride is 112, BUN is 17 creatinine 0.53. On 04/24/2021 patient seen on medical surgical floor. She is awake and alert, she is currently on 8 L of oxygen her pulse ox is 92%, she sat up in the chair, she is short of breath with conversation, but overall she states she is feeling better sitting up in the chair, complaints of chest pain, she remains on Decadron 6 mg every 12 hours, she continues on COVID-19 vitamins, and she is on Coumadin for anticoagulation, today's INR is 6.9 and her Coumadin will be held, patient will receive 2.5 mg of oral vitamin K. There is some blood work has been reviewed, white blood cell, 14.3, hemoglobin is 13.2, electrolytes and renal profile are unremarkable, the patient remains on IV hydration with plan on adenosine at a rate of 130 ML per hour. On 04/25/2021 patient seen in follow-up on medical surgical floor. She is currently on 8 L of oxygen with a pulse ox of 90-92%. FiO2 has been increased compared to yesterday when she was on 7 L. Chest x-ray showing diffuse interstitial opacities similar to prior exam. She feels chilled on today's exam, but there is been no recorded fevers overnight, vital signs have been stable. Lung sounds reveal diffuse crackles, occasional cough, no phlegm production. She remains on Decadron 6 mg twice daily, she continues on IV hydration with 0.9 normal saline at around 75 ML per hour, COVID-19 vitamins, and Coumadin. Today she was given vitamin K for supratherapeutic INR of 6.9, and INR today is down to 2.0. Today's LDH has significantly improved and is at 477 down from 1061. CRP is pending. On 04/26/2021 patient seen in follow-up on medical surgical floor. She is resting in bed, she remains on 8 L of oxygen, she is on 10 L of oxygen her pulse ox is 91%. She denies worsening dyspnea however she still complaining of a headache, she is complaining of chills all over. She has a mild cough, no chest discomfort, no phlegm production. His been afebrile. She remains on Decadron 6 kg twice daily, she is on Coumadin for anticoagulation, and she is on COVID-19 vitamins, today's INR is 1.6. Her inflammatory markers were improving and yesterday's labs. Denies nausea vomiting or diarrhea. On 04/27/2021 patient seen in follow-up on medical surgical floor. She is currently on 10 L of oxygen pulse ox is 95%. Today's chest x-ray showing continued bilateral cord pneumonia. Denies 1.9 on today's labs. There is the inflammatory markers are still pending for today. She has a mild cough, but no chills, no headaches, overall she states she is feeling a little better today, breathing a bit easier. And oxygen saturations are somewhat improved on today's vitals The patient is seen today 04/28/2021 in follow-up on the regular medical floor. She is currently sitting up in bed. Awake and alert in no acute distress. She is still requiring 7 L high flow nasal cannula to maintain O2 saturations in the low 90s. Her breathing is about the same as compared to yesterday. No better. No worse. White count 14.7. Hemoglobin 13.9. Platelets 137. Leukocyte 0.5. INR 2.74. Sodium 139. Potassium 4.6. Creatinine 0.6. She is continued on warfarin, Decadron, vitamin supplements. Objective - Vital Signs Vital signs: Vital Signs Temp 97.5 F L 04/28/21 10:00 Pulse 70 04/28/21 10:00 Resp 22 04/28/21 10:00 BP 155/55 04/28/21 10:00 Pulse Ox 91 L 04/28/21 10:00 Intake & Output 04/27/21 04/28/21 04/28/21 18:59 06:59 18:59 Output Total 900 1200 Balance -900 -1200 Weight 104.326 kg Output: Urine 900 1200 Other: Voiding Method External Catheter External Catheter # Bowel Movements 0 - Exam GENERAL EXAM: Alert, pleasant 75-year-old female patient, on 7 L high flow nasal cannula, fairly comfortable in no apparent distress. HEAD: Normocephalic. EYES: Normal reaction of pupils, equal size. NOSE: Clear with pink turbinates. THROAT: No erythema or exudates. NECK: No masses, no JVD. CHEST: No chest wall deformity. LUNGS: Equal air entry with crackles in the bilateral bases. CVS: S1 and S2 normal with no audible murmur, regular rhythm. ABDOMEN: No hepatosplenomegaly, normal bowel sounds, no guarding or rigidity. SPINE: No scoliosis or deformity SKIN: No rashes CENTRAL NERVOUS SYSTEM: No focal deficits, tone is normal in all 4 extremities. EXTREMITIES: There is no peripheral edema. No clubbing, no cyanosis. Peripheral pulses are intact. - Labs CBC & Chem 7: 04/28/21 07:01 04/28/21 07:01 Labs: Abnormal Lab Results - Last 24 Hours (Table) 04/27/21 04/28/21 04/28/21 Range/Units 04:58 07:01 07:01 WBC 14.78 H (4.50-10.00) X 10*3/uL RDW 15.0 H (11.5-14.5) % Plt Count 137 L (140-440) X 10*3/uL Immature Gran # 0.17 H (0.00-0.04) X 10*3/uL Neutrophils # 13.17 H (1.80-7.70) X 10*3/uL Lymphocytes # 0.54 L (0.90-5.00) X 10*3/uL Eosinophils # 0 L (0.04-0.35) X 10*3/uL PT 29.5 H (9.9-11.9) sec INR 2.74 H (0.90-1.11) BUN/Creatinine Ratio (12.00-20.00) Ratio Glucose (70-110) mg/dL Calcium (8.7-10.3) mg/dL Lactate Dehydrogenase 558 H (120-246) U/L Total Protein (6.2-8.2) g/dL Albumin (3.8-4.9) g/dL Albumin/Globulin Ratio (1.60-3.17) g/dL 04/28/21 Range/Units 07:01 WBC (4.50-10.00) X 10*3/uL RDW (11.5-14.5) % Plt Count (140-440) X 10*3/uL Immature Gran # (0.00-0.04) X 10*3/uL Neutrophils # (1.80-7.70) X 10*3/uL Lymphocytes # (0.90-5.00) X 10*3/uL Eosinophils # (0.04-0.35) X 10*3/uL PT (9.9-11.9) sec INR (0.90-1.11) BUN/Creatinine Ratio 29.76 H (12.00-20.00) Ratio Glucose 123 H (70-110) mg/dL Calcium 8.2 L (8.7-10.3) mg/dL Lactate Dehydrogenase (120-246) U/L Total Protein 5.0 L (6.2-8.2) g/dL Albumin 2.8 L (3.8-4.9) g/dL Albumin/Globulin Ratio 1.28 L (1.60-3.17) g/dL Assessment and Plan Assessment: 1 Acute hypoxic respiratory failure related to acute COVID-19 pneumonia. Patient came into the emergency department after symptom onset 10 days prior, patient is status post monoclonal antibody infusion on 04/16/2021. Patient is not vaccinated against COVID-19. She is currently down to 7 L of oxygen with a pulse ox of 91% 2 Previous history of DVT and PE on Coumadin 3 Hypertension 4 Osteoporosis arthritis 5 Fibromyalgia 6 Former smoker 7 History of hysterectomy 8 Supratherapeutic INR, 6.9 initially, received 2.5 mg of vitamin K, current INR 2.7 Plan: The patient was seen and evaluated by Dr. Vega Titrate the FiO2 as tolerated Continue warfarin, Decadron, vitamin supplements Increase her activity as tolerated We will continue to follow I, the cosigning physician, performed a history & physical examination of the patient. Lungs sounds crackles in the bilateral bases. Maintaining good O2 saturations in the 90s on 7 L high flow nasal cannula. I discussed the assessm ent and plan of care with my nurse practitioner, Amy Serrano. I attest to the above note as dictated by her.
--- NOTE | 2021-04-28 13:25 | P.PN ---
Subjective Progress Note Date: 04/28/21 Rosie Mercer, is a 75-year-old female who presented to [facility] emergency room with a chief complaint of worsening shortness of breath She was evaluated in the emergency room vital examination on presentation revealed a temperature of 98.4 pulse 91 respiration 22 blood pressure 172/74 p ulse ox 94% on 6 L nasal cannula and 86% on room air Laboratory data revealed a white blood count of 8.1 hemoglobin 14.6 platelet count 264 INR 3.3 BUN 17 creatinine 0.63 LDH 1061 C-reactive protein 17.3 patient has a known history of positive COVID-19 PCR testing about 1 week ago she came to emergency room and received IV infusion of antibodies last week she was doing well for few days since she started having worsening shortness of breath Testing in the emergency room revealed chest x-ray done in the emergency room revealed bilateral pulmonary infiltrates consistent with pneumonia EKG revealed normal sinus rhythm normal EKG Patient was admitted to medical floor for further evaluation and treatment Past medical history is significant for history of hypertension, history of hyperlipidemia, 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 history of osteoarthritis, history of morbid obesity, On 04/23/2021 patient was seen and examined on the medical floor she is alert and oriented 3 in no apparent distress she is still complaining of shortness of breath and cough otherwise she denies any complaints, vital exam reveals a temperature of 99 pulse 84 respirations 17 blood pressure 174/82 pulse ox 90% on 8 L nasal cannula her white blood count is up to 12.8 hemoglobin 13.2 platelet count 323 INR 3.3 BUN 17 creatinine 0.53 On 04/24/2021 patient was seen and examined on the medical floor she is alert and oriented 3 in no apparent distress, she had an episode of severe anxiety was mild agitation this morning she received IV Ativan and she has settled down at this time her vital exam reveals a temperature of 97.5 pulse 79 respiration 16 and blood pressure 159/77 pulse ox 92% on 8 L nasal cannula white blood count is 14.3 hemoglobin 13.2 platelet count 287 INR is elevated at 6.9 BUN 16 creatinine 0.54 On 04/25/2021 patient was seen and examined on the medical floor she is alert and oriented 3 in no apparent distress she is still complaining of shortness of breath and cough otherwise she denies any complaints, vital exam reveals a temperature of 97.5 pulse 77 respirations 19 blood pressure 156/79 pulse ox 93% on 11 L nasal cannula her white blood count is up to 12.8 hemoglobin 13.2 platelet count 323 INR 3.3 BUN 17 creatinine 0.53 On 04/26/2021 patient was seen and examined on the medical floor she is alert and oriented 3 in no apparent distress she is sitting up in a chair she is still complaining of severe shortness of breath and cough she is also complaining of constipation for 3 days, otherwise she denies any complaints there is no fever or chills no headache or dizziness no chest pain no nausea or vomiting no abdominal pain no diarrhea and no urinary symptoms, she is maintained on oxygen via high flow cannula her pulse ox is 90% on 10 L of oxygen. On 04/27/2021 patient was seen and examined on the medical floor she is alert and oriented 3 in no apparent distress she is sitting up in a chair she is still complaining of shortness of breath and cough otherwise she denies any complaints there is no fever or chills no headache or dizziness no chest pain no nausea or vomiting no abdominal pain no diarrhea and no urinary symptoms, she is maintained on oxygen via high flow cannula her pulse ox is 90% on 8 L of oxygen. On 04/28/2021 patient was seen and examined on the medical floor she is alert and oriented 3 in no apparent distress she is still complaining of shortness of breath she is maintained on oxygen at 7 L creatinine nasal cannula there is no fever or chills no headache or dizziness no chest pain she is still having some cough there is no nausea or vomiting no abdominal pain no diarrhea no blood in the stools no burning with urination no frequency or urgency and no hematuria. Temperature is 97.5 pulse 70 respiration 22 blood pressure 155/55 pulse ox 91% on 7 L nasal cannula laboratory data reveals White blood count 14.7 hemoglobin 13.9 platelet count 137 INR 2.74 sodium 139 potassium 4.6 chloride 104 CO2 24 BUN 17 and creatinine 0.6 Objective - Vital Signs Vital signs: Vital Signs Temp 97.5 F L 04/28/21 10:00 Pulse 70 04/28/21 10:00 Resp 22 04/28/21 10:00 BP 155/55 04/28/21 10:00 Pulse Ox 91 L 04/28/21 10:00 Intake & Output 11/04/28/21 04/28/21 18:59 06:59 18:59 Output Total 900 1200 Balance -900 -1200 Weight 104.326 kg Output: Urine 900 1200 Other: Voiding Method External Catheter External Catheter # Bowel Movements 0 - Exam In general patient is alert and oriented x 3 in no distress HEENT head normocephalic and atraumatic Neck is supple no JVD no goiter no lymphadenopathy no carotid bruit Chest examination reveals scattered crackles bilaterally with wheezing Cardiac exam reveals regular heart sounds S1 and S2 no gallops no murmurs Abdomen is soft nontender no organomegaly with normal bowel sounds Extremity exam reveals no edema no cyanosis or clubbing Neurological examination reveals no gross focal deficits - Labs CBC & Chem 7: 04/28/21 07:01 04/28/21 07:01 Labs: Abnormal Lab Results - Last 24 Hours (Table) 04/28/21 04/28/21 04/28/21 Range/Units 07:01 07:01 07:01 WBC 14.78 H (4.50-10.00) X 10*3/uL RDW 15.0 H (11.5-14.5) % Plt Count 137 L (140-440) X 10*3/uL Immature Gran # 0.17 H (0.00-0.04) X 10*3/uL Neutrophils # 13.17 H (1.80-7.70) X 10*3/uL Lymphocytes # 0.54 L (0.90-5.00) X 10*3/uL Eosinophils # 0 L (0.04-0.35) X 10*3/uL PT 29.5 H (9.9-11.9) sec INR 2.74 H (0.90-1.11) BUN/Creatinine Ratio 29.76 H (12.00-20.00) Ratio Glucose 123 H (70-110) mg/dL Calcium 8.2 L (8.7-10.3) mg/dL Total Protein 5.0 L (6.2-8.2) g/dL Albumin 2.8 L (3.8-4.9) g/dL Albumin/Globulin Ratio 1.28 L (1.60-3.17) g/dL Assessment and Plan Plan: Acute COVID-19 pneumonia Acute hypoxic respiratory failure Underlying history of hypertension Underlying history of hyperlipidemia Underlying history of lower extremity DVT maintained on Coumadin Underlying history of osteoarthritis Underlying history of morbid obesity Underlying history of degenerative disc disease maintained on narcotics for pain management Underlying history of anxiety disorder At this time patient is admitted to medical floor She was started on IV Decadron in the emergency room Patient is maintained on Coumadin and her INR is slightly on the high side at 3.3 Pulmonary and critical care consultation was requested
[2021-04-28] MEDS: IBUPROFEN 400 MG TAB PO PRN (14:19)
[2021-04-28] MEDS ORDERED: WARFARIN 1 MG TAB PO ONE (18:00)
[2021-04-29] MEDS: SODIUM CHLORIDE 0.9% 1,000 ML IV SCH ×3 (04:36→20:32)
[2021-04-29 05:01] LABS: Appearance,Urine Turbid (Clear); Bacteria,Urine Rare /hpf; Bilirubin,Urine Negative (Negative); Blood,Urine Negative (Negative); Color,Urine Yellow; Glucose,Urine (UA) Negative (Negative); Ketones,Urine Negative (Negative); Leukocyte Esterase,Urine Large (Negative); Nitrite,Urine Negative (Negative); PH, Urine 8.5 (5.0-8.0); Protein,Urine 1+ (Negative); RBC,Urine 5 /hpf (0-5); Specific Gravity,Urine 1.021 (1.001-1.035); Urobilinogen,Urine <2.0 mg/dL (<2.0); WBC,Urine 20 /hpf (0-5)
[2021-04-29] MEDS: DEXAMETHASONE SOD PHOSPHATE 4 MG/ML 1 ML VIAL IVP SCH ×2 (08:12→20:32)
[2021-04-29] MEDS: ZINC SULFATE 220 MG CAP PO SCH (08:39)
[2021-04-29] MEDS: ASCORBIC ACID 500 MG TAB PO SCH ×2 (08:39→20:32)
[2021-04-29] MEDS: amLODIPine 5 MG TAB PO SCH (08:39)
[2021-04-29] MEDS: CHOLECALCIFEROL 10 MCG (400 IU) TABLET PO SCH (08:39)
[2021-04-29] MEDS: oxyCODONE-APAP 10-325MG 1 EACH TAB PO SCH ×3 (08:39→23:50)
[2021-04-29] MEDS: LACTULOSE 20 GM/30 ML CUP PO SCH (08:41)
[2021-04-29 12:27] LABS: Basophils # (A) 0.04 X 10*3/uL (0.00-0.10); Basophils % (A) 0.2 %; Eosinophils # (A) 0 X 10*3/uL (0.04-0.35); Eosinophils % (A) 0 %; HCT 43.6 % (37.2-46.3); HGB 14.2 g/dL (12.0-15.0); Lymphocytes # (A) 0.56 X 10*3/uL (0.90-5.00); Lymphocytes % (A) 3.4 %; MCH 28.1 pg (27.0-32.0); MCHC 32.6 g/dL (32.0-37.0); MCV 86.3 fL (80.0-97.0); Mean Platelet Volume 10.1 fL (9.5-12.2); Monocytes # (A) 0.94 X 10*3/uL (0.20-1.00); Monocytes % (A) 5.7 %; Platelet Count 155 X 10*3/uL (140-440); RBC 5.05 X 10*6/uL (4.10-5.20); RDW 15.3 % (11.5-14.5); WBC 16.42 X 10*3/uL (4.50-10.00)
[2021-04-29 12:31] LABS: INR 2.66 (0.90-1.11); Prothrombin Time 28.7 sec (9.9-11.9)
--- NOTE | 2021-04-29 12:38 | P.PN ---
Subjective Progress Note Date: 04/29/21 Rosie Mercer, is a 75-year-old female who presented to [facility] emergency room with a chief complaint of worsening shortness of breath She was evaluated in the emergency room vital examination on presentation revealed a temperature of 98.4 pulse 91 respiration 22 blood pressure 172/74 p ulse ox 94% on 6 L nasal cannula and 86% on room air Laboratory data revealed a white blood count of 8.1 hemoglobin 14.6 platelet count 264 INR 3.3 BUN 17 creatinine 0.63 LDH 1061 C-reactive protein 17.3 patient has a known history of positive COVID-19 PCR testing about 1 week ago she came to emergency room and received IV infusion of antibodies last week she was doing well for few days since she started having worsening shortness of breath Testing in the emergency room revealed chest x-ray done in the emergency room revealed bilateral pulmonary infiltrates consistent with pneumonia EKG revealed normal sinus rhythm normal EKG Patient was admitted to medical floor for further evaluation and treatment Past medical history is significant for history of hypertension, history of hyperlipidemia, 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 history of osteoarthritis, history of morbid obesity, On 04/23/2021 patient was seen and examined on the medical floor she is alert and oriented 3 in no apparent distress she is still complaining of shortness of breath and cough otherwise she denies any complaints, vital exam reveals a temperature of 99 pulse 84 respirations 17 blood pressure 174/82 pulse ox 90% on 8 L nasal cannula her white blood count is up to 12.8 hemoglobin 13.2 platelet count 323 INR 3.3 BUN 17 creatinine 0.53 On 04/24/2021 patient was seen and examined on the medical floor she is alert and oriented 3 in no apparent distress, she had an episode of severe anxiety was mild agitation this morning she received IV Ativan and she has settled down at this time her vital exam reveals a temperature of 97.5 pulse 79 respiration 16 and blood pressure 159/77 pulse ox 92% on 8 L nasal cannula white blood count is 14.3 hemoglobin 13.2 platelet count 287 INR is elevated at 6.9 BUN 16 creatinine 0.54 On 04/25/2021 patient was seen and examined on the medical floor she is alert and oriented 3 in no apparent distress she is still complaining of shortness of breath and cough otherwise she denies any complaints, vital exam reveals a temperature of 97.5 pulse 77 respirations 19 blood pressure 156/79 pulse ox 93% on 11 L nasal cannula her white blood count is up to 12.8 hemoglobin 13.2 platelet count 323 INR 3.3 BUN 17 creatinine 0.53 On 04/26/2021 patient was seen and examined on the medical floor she is alert and oriented 3 in no apparent distress she is sitting up in a chair she is still complaining of severe shortness of breath and cough she is also complaining of constipation for 3 days, otherwise she denies any complaints there is no fever or chills no headache or dizziness no chest pain no nausea or vomiting no abdominal pain no diarrhea and no urinary symptoms, she is maintained on oxygen via high flow cannula her pulse ox is 90% on 10 L of oxygen. On 04/27/2021 patient was seen and examined on the medical floor she is alert and oriented 3 in no apparent distress she is sitting up in a chair she is still complaining of shortness of breath and cough otherwise she denies any complaints there is no fever or chills no headache or dizziness no chest pain no nausea or vomiting no abdominal pain no diarrhea and no urinary symptoms, she is maintained on oxygen via high flow cannula her pulse ox is 90% on 8 L of oxygen. On 04/28/2021 patient was seen and examined on the medical floor she is alert and oriented 3 in no apparent distress she is still complaining of shortness of breath she is maintained on oxygen at 7 L creatinine nasal cannula there is no fever or chills no headache or dizziness no chest pain she is still having some cough there is no nausea or vomiting no abdominal pain no diarrhea no blood in the stools no burning with urination no frequency or urgency and no hematuria. Temperature is 97.5 pulse 70 respiration 22 blood pressure 155/55 pulse ox 91% on 7 L nasal cannula laboratory data reveals White blood count 14.7 hemoglobin 13.9 platelet count 137 INR 2.74 sodium 139 potassium 4.6 chloride 104 CO2 24 BUN 17 and creatinine 0.6 On 04/29/2021 patient was seen and examined on the medical floor she is alert and oriented 3 in no apparent distress she is still complaining of shortness of breath she is maintained on oxygen at 7 L creatinine nasal cannula there is no fever or chills no headache or dizziness no chest pain she is still having some cough there is no nausea or vomiting no abdominal pain no diarrhea no blood in the stools no burning with urination no frequency or urgency and no hematuria. Temperature is 97.4 pulse 59 respiration 19 blood pressure 152/63 pulse ox 94% on 7 L nasal cannula laboratory data reveals White blood count 16.4 hemoglobin 14.2 platelet count 137 INR 2.66 CMP still pending, BP is staying elevated , at this time i will add Losartan 50 mg daily, continue with Norvasc 5 mg daily. Objective - Vital Signs Vital signs: Vital Signs Temp 97.9 F 04/29/21 10:00 Pulse 71 04/29/21 10:00 Resp 18 04/29/21 10:00 BP 155/70 04/29/21 10:00 Pulse Ox 93 L 04/29/21 10:00 Intake & Output 04/28/21 04/29/21 04/29/21 18:59 06:59 18:59 Output Total 800 750 Balance -800 -750 Output: Urine 800 750 Other: Voiding Method External Catheter External Catheter # Voids 3 # Bowel Movements 0 - Exam In general patient is alert and oriented x 3 in no distress HEENT head normocephalic and atraumatic Neck is supple no JVD no goiter no lymphadenopathy no carotid bruit Chest examination reveals scattered crackles bilaterally with wheezing Cardiac exam reveals regular heart sounds S1 and S2 no gallops no murmurs Abdomen is soft nontender no organomegaly with normal bowel sounds Extremity exam reveals no edema no cyanosis or clubbing Neurological examination reveals no gross focal deficits - Labs CBC & Chem 7: 04/29/21 06:43 04/28/21 07:01 Labs: Abnormal Lab Results - Last 24 Hours (Table) 04/28/21 04/28/21 Range/Units 07:01 23:20 BUN/Creatinine Ratio 29.76 H (12.00-20.00) Ratio Glucose 123 H (70-110) mg/dL Calcium 8.2 L (8.7-10.3) mg/dL Total Protein 5.0 L (6.2-8.2) g/dL Albumin 2.8 L (3.8-4.9) g/dL Albumin/Globulin Ratio 1.28 L (1.60-3.17) g/dL Urine Appearance Turbid H (Clear) Urine pH 8.5 H (5.0-8.0) Urine Protein 1+ H (Negative) Ur Leukocyte Esterase Large H (Negative) Urine WBC 20 H (0-5) /hpf Urine Bacteria Rare H (None) /hpf Assessment and Plan Plan: Acute COVID-19 pneumonia Acute hypoxic respiratory failure Underlying history of hypertension Underlying history of hyperlipidemia Underlying history of lower extremity DVT maintained on Coumadin Underlying history of osteoarthritis Underlying history of morbid obesity Underlying history of degenerative disc disease maintained on narcotics for pain management Underlying history of anxiety disorder At this time patient is admitted to medical floor She was started on IV Decadron in the emergency room Patient is maintained on Coumadin and her INR is slightly on the high side at 3.3 Pulmonary and critical care consultation was requested
[2021-04-29 13:09] LABS: African American GFR (CKD) 100.5 (60.0-200.0); Albumin/Globulin Ratio 1.41 (1.60-3.17); Anion Gap 10.7 mmol/L (4.00-12.00); BUN/Creat Ratio 29.05 Ratio (12.00-20.00); Calcium 8.2 mg/dL (8.7-10.3); Carbon Dioxide 24.5 mmol/L (21.6-31.8); Globulin 2.1 g/dL (1.6-3.3); Non-African American GFR(CKD) 86.7 (60.0-200.0); Potassium 4.6 mmol/L (3.5-5.5); Total Bilirubin 0.3 mg/dL (0.30-1.20); Total Protein 5.1 g/dL (6.2-8.2)
[2021-04-29] MEDS: LOSARTAN 50 MG TAB PO SCH (14:06)
--- NOTE | 2021-04-29 16:06 | P.PN ---
Subjective Progress Note Date: 04/29/21 Principal diagnosis: CoVID 19 pneumonia 75-year-old female patient, being hospitalized for COVID 19 related to pneumonia. Her brother is currently hospitalized for the same. Note that she had her household were all infected with COVID 19 and this includes her brother and daughter. Note that this is a not vaccinated individual. Her symptoms started approximately 9-10 days ago. She became symptomatic on 04/16/2021. 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 At that point, she came into the emergency department on 04/16/2021 and she was having some increased cough and body aches. And the patient was having also some increased nausea along with body aches and cough. In the emergency, the patient received monoclonal antibodies on 04/16/2021 and she was discharged home. Subsequently, her condition got worse and for that reason she came back to the hospital. Currently she had diffuse bilateral pulmonary infiltrates. She is on 6 L of oxygen by nasal cannula. Her chest x-ray is consistent with COVID 19 related pneumonia. The patient has diffuse bilateral pulmonary infiltrates. Meanwhile, the white cell count is at 8, lymphocyte count is at 0.5, INR is at 3.3 and the patient limited on warfarin outpatient basis, normal electrolytes, normal renal function, LVH level is 1061, CRP level is at 17, proBNP level is at 329. I was asked even with this patient. I saw her in the emergency. I have her currently on Decadron and should be placed on a Decadron dose of 6 mg IV every 12 hours. She is also receiving IV fluids at the rate of 130 mL an hour. 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 She has fibromyalgia and osteoarthritis and hypertension as comorbid conditions. On 04/23/2001 patient seen in follow-up on medical surgical floor. She is currently up to 8 L of oxygen pulse ox is 90%, she is still wheezing, but denies any acute distress. Afebrile. Patient remains on Decadron 6 blood gram twice daily, she is on 0.9 normal saline at a rate of 150 ML per hour, and Coumadin. Her INR is 3.3. As the labs have been reviewed, white blood cell count is 12.8, hemoglobin is 13.2, sodium is 141, potassium is 4.9, chloride is 112, BUN is 17 creatinine 0.53. On 04/24/2021 patient seen on medical surgical floor. She is awake and alert, she is currently on 8 L of oxygen her pulse ox is 92%, she sat up in the chair, she is short of breath with conversation, but overall she states she is feeling better sitting up in the chair, complaints of chest pain, she remains on Decadron 6 mg every 12 hours, she continues on COVID-19 vitamins, and she is on Coumadin for anticoagulation, today's INR is 6.9 and her Coumadin will be held, patient will receive 2.5 mg of oral vitamin K. There is some blood work has been reviewed, white blood cell, 14.3, hemoglobin is 13.2, electrolytes and renal profile are unremarkable, the patient remains on IV hydration with plan on adenosine at a rate of 130 ML per hour. On 04/25/2021 patient seen in follow-up on medical surgical floor. She is currently on 8 L of oxygen with a pulse ox of 90-92%. FiO2 has been increased compared to yesterday when she was on 7 L. Chest x-ray showing diffuse interstitial opacities similar to prior exam. She feels chilled on today's exam, but there is been no recorded fevers overnight, vital signs have been stable. Lung sounds reveal diffuse crackles, occasional cough, no phlegm production. She remains on Decadron 6 mg twice daily, she continues on IV hydration with 0.9 normal saline at around 75 ML per hour, COVID-19 vitamins, and Coumadin. Today she was given vitamin K for supratherapeutic INR of 6.9, and INR today is down to 2.0. Today's LDH has significantly improved and is at 477 down from 1061. CRP is pending. On 04/26/2021 patient seen in follow-up on medical surgical floor. She is resting in bed, she remains on 8 L of oxygen, she is on 10 L of oxygen her pulse ox is 91%. She denies worsening dyspnea however she still complaining of a headache, she is complaining of chills all over. She has a mild cough, no chest discomfort, no phlegm production. His been afebrile. She remains on Decadron 6 kg twice daily, she is on Coumadin for anticoagulation, and she is on COVID-19 vitamins, today's INR is 1.6. Her inflammatory markers were improving and yesterday's labs. Denies nausea vomiting or diarrhea. On 04/27/2021 patient seen in follow-up on medical surgical floor. She is currently on 10 L of oxygen pulse ox is 95%. Today's chest x-ray showing continued bilateral cord pneumonia. Denies 1.9 on today's labs. There is the inflammatory markers are still pending for today. She has a mild cough, but no chills, no headaches, overall she states she is feeling a little better today, breathing a bit easier. And oxygen saturations are somewhat improved on today's vitals The patient is seen today 04/28/2021 in follow-up on the regular medical floor. She is currently sitting up in bed. Awake and alert in no acute distress. She is still requiring 7 L high flow nasal cannula to maintain O2 saturations in the low 90s. Her breathing is about the same as compared to yesterday. No better. No worse. White count 14.7. Hemoglobin 13.9. Platelets 137. Leukocyte 0.5. INR 2.74. Sodium 139. Potassium 4.6. Creatinine 0.6. She is continued on warfarin, Decadron, vitamin supplements. The patient is seen today 04/29/2021 in follow-up on the regular medical floor. She is currently sitting up in bed. Having lunch. Appetite is good. No worsening shortness of breath, cough or congestion.. Feeling stronger today compared to yesterday. On 7 L high flow nasal cannula to maintain O2 saturation at 90%. Afebrile. Hemodynamically stable. White Count 16.4. Hemoglobin 14.2. Lymphocytes 0.56. INR 2.66. Sodium 137. Potassium 4.6. Creatinine 0.7. Urinalysis with large WBCs. She remains on ceftriaxone, Decadron, warfarin, vitamin supplements. Objective - Vital Signs Vital signs: Vital Signs Temp 97.6 F 04/29/21 14:00 Pulse 55 L 04/29/21 14:00 Resp 17 04/29/21 14:00 BP 139/62 04/29/21 14:00 Pulse Ox 90 L 04/29/21 14:00 Intake & Output 11/20/21 11/21/21 11/21/21 18:59 06:59 18:59 Output Total 800 750 Balance -800 -750 Output: Urine 800 750 Other: Voiding Method External Catheter External Catheter # Voids 3 # Bowel Movements 0 - Exam GENERAL EXAM: Alert, pleasant 75-year-old female patient, on 7 L high flow nasal cannula, fairly comfortable in no apparent distress. HEAD: Normocephalic. EYES: Normal reaction of pupils, equal size. NOSE: Clear with pink turbinates. THROAT: No erythema or exudates. NECK: No masses, no JVD. CHEST: No chest wall deformity. LUNGS: Equal air entry with crackles in the bilateral bases. CVS: S1 and S2 normal with no audible murmur, regular rhythm. ABDOMEN: No hepatosplenomegaly, normal bowel sounds, no guarding or rigidity. SPINE: No scoliosis or deformity SKIN: No rashes CENTRAL NERVOUS SYSTEM: No focal deficits, tone is normal in all 4 extremities. EXTREMITIES: There is no peripheral edema. No clubbing, no cyanosis. Peripheral pulses are intact. - Labs CBC & Chem 7: 04/29/21 06:43 04/29/21 06:43 Labs: Abnormal Lab Results - Last 24 Hours (Table) 04/28/21 04/29/21 04/29/21 Range/Units 23:20 06:43 06:43 WBC 16.42 H (4.50-10.00) X 10*3/uL RDW 15.3 H (11.5-14.5) % Immature Gran # 0.28 H (0.00-0.04) X 10*3/uL Neutrophils # 14.60 H (1.80-7.70) X 10*3/uL Lymphocytes # 0.56 L (0.90-5.00) X 10*3/uL Eosinophils # 0 L (0.04-0.35) X 10*3/uL PT 28.7 H (9.9-11.9) sec INR 2.66 H (0.90-1.11) BUN/Creatinine Ratio (12.00-20.00) Ratio Calcium (8.7-10.3) mg/dL Total Protein (6.2-8.2) g/dL Albumin (3.8-4.9) g/dL Albumin/Globulin Ratio (1.60-3.17) g/dL Urine Appearance Turbid H (Clear) Urine pH 8.5 H (5.0-8.0) Urine Protein 1+ H (Negative) Ur Leukocyte Esterase Large H (Negative) Urine WBC 20 H (0-5) /hpf Urine Bacteria Rare H (None) /hpf 04/29/21 Range/Units 06:43 WBC (4.50-10.00) X 10*3/uL RDW (11.5-14.5) % Immature Gran # (0.00-0.04) X 10*3/uL Neutrophils # (1.80-7.70) X 10*3/uL Lymphocytes # (0.90-5.00) X 10*3/uL Eosinophils # (0.04-0.35) X 10*3/uL PT (9.9-11.9) sec INR (0.90-1.11) BUN/Creatinine Ratio 29.05 H (12.00-20.00) Ratio Calcium 8.2 L (8.7-10.3) mg/dL Total Protein 5.1 L (6.2-8.2) g/dL Albumin 3.0 L (3.8-4.9) g/dL Albumin/Globulin Ratio 1.41 L (1.60-3.17) g/dL Urine Appearance (Clear) Urine pH (5.0-8.0) Urine Protein (Negative) Ur Leukocyte Esterase (Negative) Urine WBC (0-5) /hpf Urine Bacteria (None) /hpf Assessment and Plan Assessment: 1 Acute hypoxic respiratory failure related to acute COVID-19 pneumonia. Patient came into the emergency department after symptom onset 10 days prior, patient is status post monoclonal antibody infusion on 04/16/2021. Patient is not vaccinated against COVID-19. She is currently down to 7 L of oxygen with a pulse ox of 90% 2 Previous history of DVT and PE on Coumadin 3 Hypertension 4 Osteoporosis arthritis 5 Fibromyalgia 6 Former smoker 7 History of hysterectomy 8 Supratherapeutic INR, 6.9 initially, received 2.5 mg of vitamin K, current INR 2.6 Plan: The patient was seen and evaluated by Dr. Gary Panchal from the pulmonary standpoint Continue to titrate the FiO2 as tolerated Continue warfarin, Decadron, vitamin supplements Increase her activity as tolerated We will continue to follow I, the cosigning physician, performed a history & physical examination of the patient. Lungs sounds crackles in the bilateral bases. Maintaining good O2 saturations in the 90s on 7 L high flow nasal cannula. I discussed the assess ment and plan of care with my nurse practitioner, Amy Serrano. I attest to the above note as dictated by her.
[2021-04-29] MEDS ORDERED: WARFARIN 2 MG TAB PO ONE (18:00)
[2021-04-30] MEDS: SODIUM CHLORIDE 0.9% 1,000 ML IV SCH ×3 (04:22→17:32)
[2021-04-30] MEDS: LOSARTAN 50 MG TAB PO SCH (07:45)
[2021-04-30] MEDS: ZINC SULFATE 220 MG CAP PO SCH (07:45)
[2021-04-30] MEDS: oxyCODONE-APAP 10-325MG 1 EACH TAB PO SCH ×2 (07:45→15:53)
[2021-04-30] MEDS: DEXAMETHASONE SOD PHOSPHATE 4 MG/ML 1 ML VIAL IVP SCH ×2 (07:46→20:24)
[2021-04-30] MEDS: amLODIPine 5 MG TAB PO SCH (07:46)
[2021-04-30] MEDS: ASCORBIC ACID 500 MG TAB PO SCH ×2 (07:46→20:22)
[2021-04-30] MEDS: LACTULOSE 20 GM/30 ML CUP PO SCH (07:46)
[2021-04-30] MEDS: CHOLECALCIFEROL 10 MCG (400 IU) TABLET PO SCH (08:00)
[2021-04-30 09:32] LABS: Basophils % (A) 0 %; Eosinophils % (A) 0 %; HCT 45.1 % (34.0-46.0); HGB 14.6 gm/dL (11.4-16.0); Lymphocytes # (A) 0.4 k/uL (1.0-4.8); Lymphocytes % (A) 3 %; MCH 28.6 pg (25.0-35.0); MCHC 32.4 g/dL (31.0-37.0); MCV 88.5 fL (80.0-100.0); Mean Platelet Volume 7.2; Monocytes # (A) 0.6 k/uL (0-1.0); Monocytes % (A) 4 %; Neutrophils # (A) 15.4 k/uL (1.3-7.7); Neutrophils % (A) 93 %; Platelet Count 152 k/uL (150-450); RDW 14.8 % (11.5-15.5); WBC 16.6 k/uL (3.8-10.6)
[2021-04-30 09:50] LABS: ALT 46 U/L (4-34); AST 32 U/L (14-36); African American GFR (CKD) >90 (>60 ml/min/1.73 sqM); Albumin 2.7 g/dL (3.5-5.0); Alkaline Phosphatase 56 U/L (38-126); Anion Gap 6 mmol/L; Blood Urea Nitrogen 21 mg/dL (7-17); Calcium 8.3 mg/dL (8.4-10.2); Carbon Dioxide 27 mmol/L (22-30); Chloride 102 mmol/L (98-107); Globulin 2.7 g/dL; Glucose 131 mg/dL (74-99); Non-African American GFR(CKD) 90 (>60 ml/min/1.73 sqM); Potassium 4.4 mmol/L (3.5-5.1); Sodium 135 mmol/L (137-145); Total Bilirubin 0.4 mg/dL (0.2-1.3); Total Protein 5.4 g/dL (6.3-8.2)
[2021-04-30] MEDS: IBUPROFEN 400 MG TAB PO PRN (10:33)
--- NOTE | 2021-04-30 14:34 | P.PN ---
Subjective Progress Note Date: 04/30/21 Principal diagnosis: Acute COVID-19 pneumonia 75-year-old female patient, being hospitalized for COVID 19 related to pneumonia. Her brother is currently hospitalized for the same. Note that she had her household were all infected with COVID 19 and this includes her brother and daughter. Note that this is a not vaccinated individual. Her symptoms started approximately 9-10 days ago. She became symptomatic on 04/16/2021. 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 At that point, she came into the emergency department on 04/16/2021 and she was having some increased cough and body aches. And the patient was having also some increased nausea along with body aches and cough. In the emergency, the patient received monoclonal antibodies on 04/16/2021 and she was discharged home. Subsequently, her condition got worse and for that reason she came back to the hospital. Currently she had diffuse bilateral pulmonary infiltrates. She is on 6 L of oxygen by nasal cannula. Her chest x-ray is consistent with COVID 19 related pneumonia. The patient has diffuse bilateral pulmonary infiltrates. Meanwhile, the white cell count is at 8, lymphocyte count is at 0.5, INR is at 3.3 and the patient limited on warfarin outpatient basis, normal electrolytes, normal renal function, LVH level is 1061, CRP level is at 17, proBNP level is at 329. I was asked even with this patient. I saw her in the emergency. I have her currently on Decadron and should be placed on a Decadron dose of 6 mg IV every 12 hours. She is also receiving IV fluids at the rate of 130 mL an hour. 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 She has fibromyalgia and osteoarthritis and hypertension as comorbid conditions. On 04/23/2001 patient seen in follow-up on medical surgical floor. She is currently up to 8 L of oxygen pulse ox is 90%, she is still wheezing, but denies any acute distress. Afebrile. Patient remains on Decadron 6 blood gram twice daily, she is on 0.9 normal saline at a rate of 150 ML per hour, and Coumadin. Her INR is 3.3. As the labs have been reviewed, white blood cell count is 12.8, hemoglobin is 13.2, sodium is 141, potassium is 4.9, chloride is 112, BUN is 17 creatinine 0.53. On 04/24/2021 patient seen on medical surgical floor. She is awake and alert, she is currently on 8 L of oxygen her pulse ox is 92%, she sat up in the chair, she is short of breath with conversation, but overall she states she is feeling better sitting up in the chair, complaints of chest pain, she remains on Decadron 6 mg every 12 hours, she continues on COVID-19 vitamins, and she is on Coumadin for anticoagulation, today's INR is 6.9 and her Coumadin will be held, patient will receive 2.5 mg of oral vitamin K. There is some blood work has been reviewed, white blood cell, 14.3, hemoglobin is 13.2, electrolytes and renal profile are unremarkable, the patient remains on IV hydration with plan on adenosine at a rate of 130 ML per hour. On 04/25/2021 patient seen in follow-up on medical surgical floor. She is currently on 8 L of oxygen with a pulse ox of 90-92%. FiO2 has been increased compared to yesterday when she was on 7 L. Chest x-ray showing diffuse interstitial opacities similar to prior exam. She feels chilled on today's exam, but there is been no recorded fevers overnight, vital signs have been stable. Lung sounds reveal diffuse crackles, occasional cough, no phlegm production. She remains on Decadron 6 mg twice daily, she continues on IV hydration with 0.9 normal saline at around 75 ML per hour, COVID-19 vitamins, and Coumadin. Today she was given vitamin K for supratherapeutic INR of 6.9, and INR today is down to 2.0. Today's LDH has significantly improved and is at 477 down from 1061. CRP is pending. On 04/26/2021 patient seen in follow-up on medical surgical floor. She is resting in bed, she remains on 8 L of oxygen, she is on 10 L of oxygen her pulse ox is 91%. She denies worsening dyspnea however she still complaining of a headache, she is complaining of chills all over. She has a mild cough, no chest discomfort, no phlegm production. His been afebrile. She remains on Decadron 6 kg twice daily, she is on Coumadin for anticoagulation, and she is on COVID-19 vitamins, today's INR is 1.6. Her inflammatory markers were improving and yesterday's labs. Denies nausea vomiting or diarrhea. On 04/27/2021 patient seen in follow-up on medical surgical floor. She is currently on 10 L of oxygen pulse ox is 95%. Today's chest x-ray showing continued bilateral cord pneumonia. Denies 1.9 on today's labs. There is the inflammatory markers are still pending for today. She has a mild cough, but no chills, no headaches, overall she states she is feeling a little better today, breathing a bit easier. And oxygen saturations are somewhat improved on today's vitals On 04/30/2021 patient name follow-up on medical surgical floor, she is sitting up in the recliner, she is breathing comfortably, she states she is feeling bett er, she is currently on 7 L of oxygen pulse ox 94-95%, minimal rales at bilateral bases, FiO2 has been cut back to 6 L, will continue weaning FiO2, she's had no fever or chills. No chest discomfort, she is currently on Decadron 6 mg twice daily, she is on Coumadin per pharmacy dosing, today's INR is still pending, breast labs have been reviewed, white blood cell, 16.6, hemoglobin is 14.6, sodium is 135, the rest of electrolytes are within normal limits, BUN is 21 creatinine 0.6. Patient is on Rocephin possibly for the possibility of urinary tract infection, denies any urinary symptoms right now Objective - Vital Signs Vital signs: Vital Signs Temp 97.7 F 04/30/21 10:00 Pulse 62 04/30/21 10:00 Resp 18 04/30/21 10:00 BP 165/76 04/30/21 10:00 Pulse Ox 94 L 04/30/21 10:00 Intake & Output 04/29/21 04/30/21 04/30/21 18:59 06:59 18:59 Intake Total 130 Output Total 750 Balance -750 130 Intake: IV 80 Sodium Chloride 0.9% 1, 80 000 ml @ 10 mls/hr IV . Q24H [facility]STAN Rx#:[id number] Intake, IV Titration 50 Amount cefTRIAXone 1 gm In 50 Sodium Chloride 0.9% 50 ml @ 100 mls/hr IVPB Q12HR [facility] Rx#:[id number] Output: Urine 750 Other: Voiding Method External Catheter # Voids 2 3 1 # Bowel Movements 1 1 - Exam GENERAL EXAM: Alert, very pleasant, 75-year-old white female, on 7 L of oxygen with pulse ox of 95% comfortable in no apparent distress. HEAD: Normocephalic/atraumatic. EYES: Normal reaction of pupils, equal size. Conjunctiva pink, sclera white. NOSE: Clear with pink turbinates. THROAT: No erythema or exudates. NECK: No masses, no JVD, no thyroid enlargement, no adenopathy. CHEST: No chest wall deformity. Symmetrical expansion. LUNGS: Equal air entry with minimal crackles on today's exam CVS: Regular rate and rhythm, normal S1 and S2, no gallops, no murmurs, no rubs ABDOMEN: Soft, nontender. No hepatosplenomegaly, normal bowel sounds, no guarding or rigidity. EXTREMITIES: No clubbing, no edema, no cyanosis, 2+ pulses and upper and lower extremities. MUSCULOSKELETAL: Muscle strength and tone normal. SPINE: No scoliosis or deformity SKIN: No rashes CENTRAL NERVOUS SYSTEM: Alert and oriented -3. No focal deficits, tone is no rmal in all 4 extremities. PSYCHIATRIC: Alert and oriented -3. Appropriate affect. Intact judgment and insight. - Labs CBC & Chem 7: 04/30/21 09:13 04/30/21 09:13 Labs: Abnormal Lab Results - Last 24 Hours (Table) 04/30/21 04/30/21 Range/Units 09:13 09:13 WBC 16.6 H (3.8-10.6) k/uL Neutrophils # 15.4 H (1.3-7.7) k/uL Lymphocytes # 0.4 L (1.0-4.8) k/uL Sodium 135 L (137-145) mmol/L BUN 21 H (7-17) mg/dL Glucose 131 H (74-99) mg/dL Calcium 8.3 L (8.4-10.2) mg/dL ALT 46 H (4-34) U/L Total Protein 5.4 L (6.3-8.2) g/dL Albumin 2.7 L (3.5-5.0) g/dL Assessment and Plan Plan: Assessment: #1. Acute hypoxic respiratory failure related to acute COVID-19 pneumonia. Patient came into the emergency department after symptom onset 10 days ago, patient is status post monoclonal antibody infusion on 04/16/2021. Patient is not vaccinated against COVID-19. She is currently up to 7 L of oxygen with a pulse ox of 95% #2. Previous history of DVT and PE on Coumadin #3. Hypertension #4. Osteoporosis arthritis #5. Fibromyalgia #6. Former smoker #7. History of hysterectomy #8. Supratherapeutic INR, 6.9, improved and INR is down to 2.6 Plan: FiO2 has been cut back to 6 L, Continue weaning FiO2 to keep O2 saturation at or above 90% She is breathing comfortably, feeling better Continue Decadron, continue multivitamins, Coumadin dosing per pharmacy Clinically she is improving No acute events overnight Once FiO2 is down to 5 L or less may consider discharge home I performed a history & physical examination of the patient and discussed their management with my nurse practitioner, Silvia Ozuna. I reviewed the nurse practitioner's note and agree with the documented findings and plan of care. Lung sounds are positive for diminished breath sounds throughout the lung chu. The findings and the impression was discussed with the patient. I attest to the documentation by the nurse practitioner. Time with Patient: Less than 30
--- NOTE | 2021-04-30 18:16 | P.PN ---
Subjective Progress Note Date: 04/30/21 Rosie Mercer, is a 75-year-old female who presented to [facility] emergency room with a chief complaint of worsening shortness of breath She was evaluated in the emergency room vital examination on presentation revealed a temperature of 98.4 pulse 91 respiration 22 blood pressure 172/74 p ulse ox 94% on 6 L nasal cannula and 86% on room air Laboratory data revealed a white blood count of 8.1 hemoglobin 14.6 platelet count 264 INR 3.3 BUN 17 creatinine 0.63 LDH 1061 C-reactive protein 17.3 patient has a known history of positive COVID-19 PCR testing about 1 week ago she came to emergency room and received IV infusion of antibodies last week she was doing well for few days since she started having worsening shortness of breath Testing in the emergency room revealed chest x-ray done in the emergency room revealed bilateral pulmonary infiltrates consistent with pneumonia EKG revealed normal sinus rhythm normal EKG Patient was admitted to medical floor for further evaluation and treatment Past medical history is significant for history of hypertension, history of hyperlipidemia, 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 history of osteoarthritis, history of morbid obesity, On 04/23/2021 patient was seen and examined on the medical floor she is alert and oriented 3 in no apparent distress she is still complaining of shortness of breath and cough otherwise she denies any complaints, vital exam reveals a temperature of 99 pulse 84 respirations 17 blood pressure 174/82 pulse ox 90% on 8 L nasal cannula her white blood count is up to 12.8 hemoglobin 13.2 platelet count 323 INR 3.3 BUN 17 creatinine 0.53 On 04/24/2021 patient was seen and examined on the medical floor she is alert and oriented 3 in no apparent distress, she had an episode of severe anxiety was mild agitation this morning she received IV Ativan and she has settled down at this time her vital exam reveals a temperature of 97.5 pulse 79 respiration 16 and blood pressure 159/77 pulse ox 92% on 8 L nasal cannula white blood count is 14.3 hemoglobin 13.2 platelet count 287 INR is elevated at 6.9 BUN 16 creatinine 0.54 On 04/25/2021 patient was seen and examined on the medical floor she is alert and oriented 3 in no apparent distress she is still complaining of shortness of breath and cough otherwise she denies any complaints, vital exam reveals a temperature of 97.5 pulse 77 respirations 19 blood pressure 156/79 pulse ox 93% on 11 L nasal cannula her white blood count is up to 12.8 hemoglobin 13.2 platelet count 323 INR 3.3 BUN 17 creatinine 0.53 On 04/26/2021 patient was seen and examined on the medical floor she is alert and oriented 3 in no apparent distress she is sitting up in a chair she is still complaining of severe shortness of breath and cough she is also complaining of constipation for 3 days, otherwise she denies any complaints there is no fever or chills no headache or dizziness no chest pain no nausea or vomiting no abdominal pain no diarrhea and no urinary symptoms, she is maintained on oxygen via high flow cannula her pulse ox is 90% on 10 L of oxygen. On 04/27/2021 patient was seen and examined on the medical floor she is alert and oriented 3 in no apparent distress she is sitting up in a chair she is still complaining of shortness of breath and cough otherwise she denies any complaints there is no fever or chills no headache or dizziness no chest pain no nausea or vomiting no abdominal pain no diarrhea and no urinary symptoms, she is maintained on oxygen via high flow cannula her pulse ox is 90% on 8 L of oxygen. On 04/28/2021 patient was seen and examined on the medical floor she is alert and oriented 3 in no apparent distress she is still complaining of shortness of breath she is maintained on oxygen at 7 L creatinine nasal cannula there is no fever or chills no headache or dizziness no chest pain she is still having some cough there is no nausea or vomiting no abdominal pain no diarrhea no blood in the stools no burning with urination no frequency or urgency and no hematuria. Temperature is 97.5 pulse 70 respiration 22 blood pressure 155/55 pulse ox 91% on 7 L nasal cannula laboratory data reveals White blood count 14.7 hemoglobin 13.9 platelet count 137 INR 2.74 sodium 139 potassium 4.6 chloride 104 CO2 24 BUN 17 and creatinine 0.6 On 04/29/2021 patient was seen and examined on the medical floor she is alert and oriented 3 in no apparent distress she is still complaining of shortness of breath she is maintained on oxygen at 7 L creatinine nasal cannula there is no fever or chills no headache or dizziness no chest pain she is still having some cough there is no nausea or vomiting no abdominal pain no diarrhea no blood in the stools no burning with urination no frequency or urgency and no hematuria. Temperature is 97.4 pulse 59 respiration 19 blood pressure 152/63 pulse ox 94% on 7 L nasal cannula laboratory data reveals White blood count 16.4 hemoglobin 14.2 platelet count 137 INR 2.66 CMP still pending, BP is staying elevated , at this time i will add Losartan 50 mg daily, continue with Norvasc 5 mg daily. On 04/30/2021 patient was seen and examined on the medical floor she is alert and oriented 3 in no apparent distress she is still complaining of shortness of breath she is maintained on oxygen at 7 L creatinine nasal cannula there is no fever or chills no headache or dizziness no chest pain she is still having some cough there is no nausea or vomiting no abdominal pain no diarrhea no blood in the stools no burning with urination no frequency or urgency and no hematuria. Temperature is 97.5 pulse 70 respiration 18 blood pressure 149/77 pulse ox 94% on 7 L nasal cannula Objective - Vital Signs Vital signs: Vital Signs Temp 97.7 F 04/30/21 10:00 Pulse 62 04/30/21 10:00 Resp 18 04/30/21 10:00 BP 165/76 04/30/21 10:00 Pulse Ox 94 L 04/30/21 10:00 Intake & Output 04/29/21 04/30/21 04/30/21 18:59 06:59 18:59 Output Total 750 Balance -750 Output: Urine 750 Other: Voiding Method External Catheter # Voids 2 3 1 # Bowel Movements 1 1 - Exam In general patient is alert and oriented x 3 in no distress HEENT head normocephalic and atraumatic Neck is supple no JVD no goiter no lymphadenopathy no carotid bruit Chest examination reveals scattered crackles bilaterally with wheezing Cardiac exam reveals regular heart sounds S1 and S2 no gallops no murmurs Abdomen is soft nontender no organomegaly with normal bowel sounds Extremity exam reveals no edema no cyanosis or clubbing Neurological examination reveals no gross focal deficits - Labs CBC & Chem 7: 04/30/21 09:13 04/30/21 09:13 Labs: Abnormal Lab Results - Last 24 Hours (Table) 04/29/21 04/30/21 04/30/21 Range/Units 06:43 09:13 09:13 WBC 16.6 H (3.8-10.6) k/uL Neutrophils # 15.4 H (1.3-7.7) k/uL Lymphocytes # 0.4 L (1.0-4.8) k/uL Sodium 135 L (137-145) mmol/L BUN 21 H (7-17) mg/dL BUN/Creatinine Ratio 29.05 H (12.00-20.00) Ratio Glucose 131 H (74-99) mg/dL Calcium 8.2 L 8.3 L (8.7-10.3) mg/dL ALT 46 H (4-34) U/L Total Protein 5.1 L 5.4 L (6.2-8.2) g/dL Albumin 3.0 L 2.7 L (3.8-4.9) g/dL Albumin/Globulin Ratio 1.41 L (1.60-3.17) g/dL Assessment and Plan Plan: Acute COVID-19 pneumonia Acute hypoxic respiratory failure Underlying history of hypertension Underlying history of hyperlipidemia Underlying history of lower extremity DVT maintained on Coumadin Underlying history of osteoarthritis Underlying history of morbid obesity Underlying history of degenerative disc disease maintained on narcotics for pain management Underlying history of anxiety disorder At this time patient is admitted to medical floor She was started on IV Decadron in the emergency room Patient is maintained on Coumadin and her INR is slightly on the high side at 3.3 Pulmonary and critical care consultation was requested
[2021-04-30 19:09] LABS: INR 2.7 (<1.2); Prothrombin Time 26.3 sec (9.0-12.0)
[2021-04-30] MEDS ORDERED: WARFARIN 1.5 MG TAB PO ONE (20:00)
[2021-05-01] MEDS: oxyCODONE-APAP 10-325MG 1 EACH TAB PO SCH ×3 (00:07→15:51)
[2021-05-01 06:41] LABS: INR 2.5 (<1.2); Prothrombin Time 24.3 sec (9.0-12.0)
[2021-05-01] MEDS: LOSARTAN 50 MG TAB PO SCH (06:59)
[2021-05-01] MEDS: amLODIPine 5 MG TAB PO SCH (06:59)
[2021-05-01] MEDS: ZINC SULFATE 220 MG CAP PO SCH (06:59)
[2021-05-01] MEDS: ASCORBIC ACID 500 MG TAB PO SCH ×2 (06:59→20:20)
[2021-05-01] MEDS: CHOLECALCIFEROL 10 MCG (400 IU) TABLET PO SCH (07:00)
[2021-05-01] MEDS: DEXAMETHASONE SOD PHOSPHATE 4 MG/ML 1 ML VIAL IVP SCH ×2 (07:02→20:20)
[2021-05-01] MEDS: LACTULOSE 20 GM/30 ML CUP PO SCH (07:03)
[2021-05-01] MEDS: SODIUM CHLORIDE 0.9% 1,000 ML IV SCH ×3 (08:41→17:01)
[2021-05-01 09:02] LABS: C Reactive Protein <0.5 mg/dL (<1.0)
[2021-05-01 09:03] LABS: LDH 1732 U/L (313-618)
--- NOTE | 2021-05-01 14:50 | P.PN ---
Subjective Progress Note Date: 05/01/21 Principal diagnosis: Acute COVID-19 pneumonia 75-year-old female patient, being hospitalized for COVID 19 related to pneumonia. Her brother is currently hospitalized for the same. Note that she had her household were all infected with COVID 19 and this includes her brother and daughter. Note that this is a not vaccinated individual. Her symptoms started approximately 9-10 days ago. She became symptomatic on 04/16/2021. 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 At that point, she came into the emergency department on 04/16/2021 and she was having some increased cough and body aches. And the patient was having also some increased nausea along with body aches and cough. In the emergency, the patient received monoclonal antibodies on 04/16/2021 and she was discharged home. Subsequently, her condition got worse and for that reason she came back to the hospital. Currently she had diffuse bilateral pulmonary infiltrates. She is on 6 L of oxygen by nasal cannula. Her chest x-ray is consistent with COVID 19 related pneumonia. The patient has diffuse bilateral pulmonary infiltrates. Meanwhile, the white cell count is at 8, lymphocyte count is at 0.5, INR is at 3.3 and the patient limited on warfarin outpatient basis, normal electrolytes, normal renal function, LVH level is 1061, CRP level is at 17, proBNP level is at 329. I was asked even with this patient. I saw her in the emergency. I have her currently on Decadron and should be placed on a Decadron dose of 6 mg IV every 12 hours. She is also receiving IV fluids at the rate of 130 mL an hour. 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 She has fibromyalgia and osteoarthritis and hypertension as comorbid conditions. On 04/23/2001 patient seen in follow-up on medical surgical floor. She is currently up to 8 L of oxygen pulse ox is 90%, she is still wheezing, but denies any acute distress. Afebrile. Patient remains on Decadron 6 blood gram twice daily, she is on 0.9 normal saline at a rate of 150 ML per hour, and Coumadin. Her INR is 3.3. As the labs have been reviewed, white blood cell count is 12.8, hemoglobin is 13.2, sodium is 141, potassium is 4.9, chloride is 112, BUN is 17 creatinine 0.53. On 04/24/2021 patient seen on medical surgical floor. She is awake and alert, she is currently on 8 L of oxygen her pulse ox is 92%, she sat up in the chair, she is short of breath with conversation, but overall she states she is feeling better sitting up in the chair, complaints of chest pain, she remains on Decadron 6 mg every 12 hours, she continues on COVID-19 vitamins, and she is on Coumadin for anticoagulation, today's INR is 6.9 and her Coumadin will be held, patient will receive 2.5 mg of oral vitamin K. There is some blood work has been reviewed, white blood cell, 14.3, hemoglobin is 13.2, electrolytes and renal profile are unremarkable, the patient remains on IV hydration with plan on adenosine at a rate of 130 ML per hour. On 04/25/2021 patient seen in follow-up on medical surgical floor. She is currently on 8 L of oxygen with a pulse ox of 90-92%. FiO2 has been increased compared to yesterday when she was on 7 L. Chest x-ray showing diffuse interstitial opacities similar to prior exam. She feels chilled on today's exam, but there is been no recorded fevers overnight, vital signs have been stable. Lung sounds reveal diffuse crackles, occasional cough, no phlegm production. She remains on Decadron 6 mg twice daily, she continues on IV hydration with 0.9 normal saline at around 75 ML per hour, COVID-19 vitamins, and Coumadin. Today she was given vitamin K for supratherapeutic INR of 6.9, and INR today is down to 2.0. Today's LDH has significantly improved and is at 477 down from 1061. CRP is pending. On 04/26/2021 patient seen in follow-up on medical surgical floor. She is resting in bed, she remains on 8 L of oxygen, she is on 10 L of oxygen her pulse ox is 91%. She denies worsening dyspnea however she still complaining of a headache, she is complaining of chills all over. She has a mild cough, no chest discomfort, no phlegm production. His been afebrile. She remains on Decadron 6 kg twice daily, she is on Coumadin for anticoagulation, and she is on COVID-19 vitamins, today's INR is 1.6. Her inflammatory markers were improving and yesterday's labs. Denies nausea vomiting or diarrhea. On 04/27/2021 patient seen in follow-up on medical surgical floor. She is currently on 10 L of oxygen pulse ox is 95%. Today's chest x-ray showing continued bilateral cord pneumonia. Denies 1.9 on today's labs. There is the inflammatory markers are still pending for today. She has a mild cough, but no chills, no headaches, overall she states she is feeling a little better today, breathing a bit easier. And oxygen saturations are somewhat improved on today's vitals On 04/30/2021 patient name follow-up on medical surgical floor, she is sitting up in the recliner, she is breathing comfortably, she states she is feeling bett er, she is currently on 7 L of oxygen pulse ox 94-95%, minimal rales at bilateral bases, FiO2 has been cut back to 6 L, will continue weaning FiO2, she's had no fever or chills. No chest discomfort, she is currently on Decadron 6 mg twice daily, she is on Coumadin per pharmacy dosing, today's INR is still pending, breast labs have been reviewed, white blood cell, 16.6, hemoglobin is 14.6, sodium is 135, the rest of electrolytes are within normal limits, BUN is 21 creatinine 0.6. Patient is on Rocephin possibly for the possibility of urinary tract infection, denies any urinary symptoms right now On 05/01/2021 patient seen in follow-up on medical surgical floor. Patient is currently down to 5 L, breathing comfortably, with pulse ox of 91%. No fever or chills, hemodynamics are stable, she denies any worsening dyspnea, lung sounds are positive for some minimal crackles, no rhonchi or wheezing, overall states she is feeling better. Patient sitting up in the chair, she has been able to ambulate with a rolling walker. She's been participating with therapy, tolerating it well. Objective - Vital Signs Vital signs: Vital Signs Temp 97.7 F 05/01/21 14:00 Pulse 85 05/01/21 14:00 Resp 17 05/01/21 14:00 BP 132/68 05/01/21 14:00 Pulse Ox 91 L 05/01/21 14:00 Intake & Output 04/30/21 05/01/21 05/01/21 18:59 06:59 18:59 Intake Total 130 Balance 130 Intake: IV 80 Sodium Chloride 0.9% 1, 80 000 ml @ 10 mls/hr IV . Q24H TRISTAN Rx#:[id number] Intake, IV Titration 50 Amount cefTRIAXone 1 gm In 50 Sodium Chloride 0.9% 50 ml @ 100 mls/hr IVPB Q12HR TRISTAN Rx#:[id number] Other: Voiding Method Bedpan Bedpan # Voids 1 1 - Exam GENERAL EXAM: Alert, very pleasant, 75-year-old white female, on 5 L of oxygen with pulse ox of 91% comfortable in no apparent distress. HEAD: Normocephalic/atraumatic. EYES: Normal reaction of pupils, equal size. Conjunctiva pink, sclera white. NOSE: Clear with pink turbinates. THROAT: No erythema or exudates. NECK: No masses, no JVD, no thyroid enlargement, no adenopathy. CHEST: No chest wall deformity. Symmetrical expansion. LUNGS: Equal air entry with minimal crackles on today's exam CVS: Regular rate and rhythm, normal S1 and S2, no gallops, no murmurs, no rubs ABDOMEN: Soft, nontender. No hepatosplenomegaly, normal bowel sounds, no guarding or rigidity. EXTREMITIES: No clubbing, no edema, no cyanosis, 2+ pulses and upper and lower extremities. MUSCULOSKELETAL: Muscle strength and tone normal. SPINE: No scoliosis or deformity SKIN: No rashes CENTRAL NERVOUS SYSTEM: Alert and oriented -3. No focal deficits, tone is normal in all 4 extremities. PSYCHIATRIC: Alert and oriented -3. Appropriate affect. Intact judgment and insight. - Labs CBC & Chem 7: 04/30/21 09:13 04/30/21 09:13 Labs: Abnormal Lab Results - Last 24 Hours (Table) 04/30/21 05/01/21 05/01/21 Range/Units 09:13 06:10 06:10 PT 26.3 H 24.3 H (9.0-12.0) sec INR 2.7 H 2.5 H (<1.2) Lactate Dehydrogenase 1732 H (313-618) U/L Microbiology - Last 24 Hours (Table) 04/30/21 20:46 Urine Culture - Preliminary Urine,Clean Catch Assessment and Plan Plan: Assessment: #1. Acute hypoxic respiratory failure related to acute COVID-19 pneumonia. Patient came into the emergency department after symptom onset 10 days ago, patient is status post monoclonal antibody infusion on 04/16/2021. Patient is not vaccinated against COVID-19. She is currently up to 7 L of oxygen with a pulse ox of 95% #2. Previous history of DVT and PE on Coumadin #3. Hypertension #4. Osteoporosis arthritis #5. Fibromyalgia #6. Former smoker #7. History of hysterectomy #8. Supratherapeutic INR, 6.9, improved and INR is down to 2.6 Plan: FiO2 has been cut back to 5 L, Continue weaning FiO2 to keep O2 saturation at or above 90% She is breathing comfortably, feeling better Continue Decadron, continue multivitamins, Coumadin dosing per pharmacy Clinically she has been stable, continues to improve If remains on 5 l/min or less of supplemental oxygen may consider for discharge home I performed a history & physical examination of the patient and discussed their management with my nurse practitioner, Silvia Ozuna. I reviewed the nurse practitioner's note and agree with the documented findings and plan of care. Lung sounds are positive for diminished breath sounds throughout the lung chu. The findings and the impression was discussed with the patient. I attest to the documentation by the nurse practitioner. Time with Patient: Less than 30
--- NOTE | 2021-05-01 17:29 | P.PN ---
Subjective Progress Note Date: 05/01/21 Rosie Mercer, is a 75-year-old female who presented to [facility] emergency room with a chief complaint of worsening shortness of breath She was evaluated in the emergency room vital examination on presentation revealed a temperature of 98.4 pulse 91 respiration 22 blood pressure 172/74 p ulse ox 94% on 6 L nasal cannula and 86% on room air Laboratory data revealed a white blood count of 8.1 hemoglobin 14.6 platelet count 264 INR 3.3 BUN 17 creatinine 0.63 LDH 1061 C-reactive protein 17.3 patient has a known history of positive COVID-19 PCR testing about 1 week ago she came to emergency room and received IV infusion of antibodies last week she was doing well for few days since she started having worsening shortness of breath Testing in the emergency room revealed chest x-ray done in the emergency room revealed bilateral pulmonary infiltrates consistent with pneumonia EKG revealed normal sinus rhythm normal EKG Patient was admitted to medical floor for further evaluation and treatment Past medical history is significant for history of hypertension, history of hyperlipidemia, 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 history of osteoarthritis, history of morbid obesity, On 04/23/2021 patient was seen and examined on the medical floor she is alert and oriented 3 in no apparent distress she is still complaining of shortness of breath and cough otherwise she denies any complaints, vital exam reveals a temperature of 99 pulse 84 respirations 17 blood pressure 174/82 pulse ox 90% on 8 L nasal cannula her white blood count is up to 12.8 hemoglobin 13.2 platelet count 323 INR 3.3 BUN 17 creatinine 0.53 On 04/24/2021 patient was seen and examined on the medical floor she is alert and oriented 3 in no apparent distress, she had an episode of severe anxiety was mild agitation this morning she received IV Ativan and she has settled down at this time her vital exam reveals a temperature of 97.5 pulse 79 respiration 16 and blood pressure 159/77 pulse ox 92% on 8 L nasal cannula white blood count is 14.3 hemoglobin 13.2 platelet count 287 INR is elevated at 6.9 BUN 16 creatinine 0.54 On 04/25/2021 patient was seen and examined on the medical floor she is alert and oriented 3 in no apparent distress she is still complaining of shortness of breath and cough otherwise she denies any complaints, vital exam reveals a temperature of 97.5 pulse 77 respirations 19 blood pressure 156/79 pulse ox 93% on 11 L nasal cannula her white blood count is up to 12.8 hemoglobin 13.2 platelet count 323 INR 3.3 BUN 17 creatinine 0.53 On 04/26/2021 patient was seen and examined on the medical floor she is alert and oriented 3 in no apparent distress she is sitting up in a chair she is still complaining of severe shortness of breath and cough she is also complaining of constipation for 3 days, otherwise she denies any complaints there is no fever or chills no headache or dizziness no chest pain no nausea or vomiting no abdominal pain no diarrhea and no urinary symptoms, she is maintained on oxygen via high flow cannula her pulse ox is 90% on 10 L of oxygen. On 04/27/2021 patient was seen and examined on the medical floor she is alert and oriented 3 in no apparent distress she is sitting up in a chair she is still complaining of shortness of breath and cough otherwise she denies any complaints there is no fever or chills no headache or dizziness no chest pain no nausea or vomiting no abdominal pain no diarrhea and no urinary symptoms, she is maintained on oxygen via high flow cannula her pulse ox is 90% on 8 L of oxygen. On 04/28/2021 patient was seen and examined on the medical floor she is alert and oriented 3 in no apparent distress she is still complaining of shortness of breath she is maintained on oxygen at 7 L creatinine nasal cannula there is no fever or chills no headache or dizziness no chest pain she is still having some cough there is no nausea or vomiting no abdominal pain no diarrhea no blood in the stools no burning with urination no frequency or urgency and no hematuria. Temperature is 97.5 pulse 70 respiration 22 blood pressure 155/55 pulse ox 91% on 7 L nasal cannula laboratory data reveals White blood count 14.7 hemoglobin 13.9 platelet count 137 INR 2.74 sodium 139 potassium 4.6 chloride 104 CO2 24 BUN 17 and creatinine 0.6 On 04/29/2021 patient was seen and examined on the medical floor she is alert and oriented 3 in no apparent distress she is still complaining of shortness of breath she is maintained on oxygen at 7 L creatinine nasal cannula there is no fever or chills no headache or dizziness no chest pain she is still having some cough there is no nausea or vomiting no abdominal pain no diarrhea no blood in the stools no burning with urination no frequency or urgency and no hematuria. Temperature is 97.4 pulse 59 respiration 19 blood pressure 152/63 pulse ox 94% on 7 L nasal cannula laboratory data reveals White blood count 16.4 hemoglobin 14.2 platelet count 137 INR 2.66 CMP still pending, BP is staying elevated , at this time i will add Losartan 50 mg daily, continue with Norvasc 5 mg daily. On 04/30/2021 patient was seen and examined on the medical floor she is alert and oriented 3 in no apparent distress she is still complaining of shortness of breath she is maintained on oxygen at 7 L creatinine nasal cannula there is no fever or chills no headache or dizziness no chest pain she is still having some cough there is no nausea or vomiting no abdominal pain no diarrhea no blood in the stools no burning with urination no frequency or urgency and no hematuria. Temperature is 97.5 pulse 70 respiration 18 blood pressure 149/77 pulse ox 94% on 7 L nasal cannula On 05/01/2021 patient was seen and examined on the medical floor she is alert and oriented 3 in no apparent distress she is still complaining of shortness of breath she is maintained on oxygen at 7 L creatinine nasal cannula there is no fever or chills no headache or dizziness no chest pain she is still having some cough there is no nausea or vomiting no abdominal pain no diarrhea no blood in t he stools no burning with urination no frequency or urgency and no hematuria. Temperature is 97.7 pulse 85 respiration 18 blood pressure 157/79 pulse ox 94% on 5 L nasal cannula Objective - Vital Signs Vital signs: Vital Signs Temp 97.9 F 05/01/21 06:00 Pulse 73 05/01/21 06:00 Resp 21 05/01/21 07:15 BP 181/96 05/01/21 06:00 Pulse Ox 92 L 05/01/21 06:00 Intake & Output 04/30/21 05/01/21 05/01/21 18:59 06:59 18:59 Intake Total 130 Balance 130 Intake: IV 80 Sodium Chloride 0.9% 1, 80 000 ml @ 10 mls/hr IV . Q24H TRISTAN Rx#:[id number] Intake, IV Titration 50 Amount cefTRIAXone 1 gm In 50 Sodium Chloride 0.9% 50 ml @ 100 mls/hr IVPB Q12HR TRISTAN Rx#:[id number] Other: Voiding Method Bedpan Bedpan # Voids 1 1 - Exam In general patient is alert and oriented x 3 in no distress HEENT head normocephalic and atraumatic Neck is supple no JVD no goiter no lymphadenopathy no carotid bruit Chest examination reveals scattered crackles bilaterally with wheezing Cardiac exam reveals regular heart sounds S1 and S2 no gallops no murmurs Abdomen is soft nontender no organomegaly with normal bowel sounds Extremity exam reveals no edema no cyanosis or clubbing Neurological examination reveals no gross focal deficits - Labs CBC & Chem 7: 04/30/21 09:13 04/30/21 09:13 Labs: Abnormal Lab Results - Last 24 Hours (Table) 04/30/21 05/01/21 05/01/21 Range/Units 09:13 06:10 06:10 PT 26.3 H 24.3 H (9.0-12.0) sec INR 2.7 H 2.5 H (<1.2) Lactate Dehydrogenase 1732 H (313-618) U/L Microbiology - Last 24 Hours (Table) 04/30/21 20:46 Urine Culture - Preliminary Urine,Clean Catch Assessment and Plan Plan: Acute COVID-19 pneumonia Acute hypoxic respiratory failure Underlying history of hypertension Underlying history of hyperlipidemia Underlying history of lower extremity DVT maintained on Coumadin Underlying history of osteoarthritis Underlying history of morbid obesity Underlying history of degenerative disc disease maintained on narcotics for pain management Underlying history of anxiety disorder At this time patient is admitted to medical floor She was started on IV Decadron in the emergency room Patient is maintained on Coumadin and her INR is slightly on the high side at 3 .3 Pulmonary and critical care consultation was requested
[2021-05-01] MEDS ORDERED: WARFARIN 1.5 MG TAB PO ONE (18:00)
[2021-05-02] MEDS: oxyCODONE-APAP 10-325MG 1 EACH TAB PO SCH ×3 (00:21→16:30)
[2021-05-02 06:59] LABS: INR 2.4 (<1.2); Prothrombin Time 23.7 sec (9.0-12.0)
[2021-05-02] MEDS: amLODIPine 5 MG TAB PO SCH (09:21)
[2021-05-02] MEDS: DEXAMETHASONE SOD PHOSPHATE 4 MG/ML 1 ML VIAL IVP SCH ×2 (09:21→20:45)
[2021-05-02] MEDS: LACTULOSE 20 GM/30 ML CUP PO SCH (09:21)
[2021-05-02] MEDS: ASCORBIC ACID 500 MG TAB PO SCH ×2 (09:21→20:46)
[2021-05-02] MEDS: ZINC SULFATE 220 MG CAP PO SCH (09:21)
[2021-05-02] MEDS: LOSARTAN 50 MG TAB PO SCH (09:22)
[2021-05-02] MEDS: CHOLECALCIFEROL 10 MCG (400 IU) TABLET PO SCH (09:22)
[2021-05-02 09:28] LABS: Basophils # (A) 0.06 X 10*3/uL (0.00-0.10); Basophils % (A) 0.3 %; Eosinophils # (A) 0 X 10*3/uL (0.04-0.35); Eosinophils % (A) 0 %; HCT 46.9 % (37.2-46.3); HGB 14.9 g/dL (12.0-15.0); Lymphocytes # (A) 0.59 X 10*3/uL (0.90-5.00); Lymphocytes % (A) 3.4 %; MCH 28.3 pg (27.0-32.0); MCHC 31.8 g/dL (32.0-37.0); Mean Platelet Volume 9.6 fL (9.5-12.2); Monocytes # (A) 1.28 X 10*3/uL (0.20-1.00); Monocytes % (A) 7.3 %; Neutrophils # (A) 15.24 X 10*3/uL (1.80-7.70); Platelet Count 168 X 10*3/uL (140-440); RBC 5.27 X 10*6/uL (4.10-5.20); RDW 15.5 % (11.5-14.5); WBC 17.52 X 10*3/uL (4.50-10.00)
[2021-05-02 09:57] LABS: African American GFR (CKD) 98.2 (60.0-200.0); Albumin 3.1 g/dL (3.8-4.9); Albumin/Globulin Ratio 1.55 (1.60-3.17); Anion Gap 9.7 mmol/L (10.00-18.00); BUN/Creat Ratio 30.71 Ratio (12.00-20.00); Blood Urea Nitrogen 21.5 mg/dL (9.0-27.0); Calcium 8.6 mg/dL (8.7-10.3); Carbon Dioxide 27.3 mmol/L (20.0-27.5); Non-African American GFR(CKD) 84.8 (60.0-200.0); Potassium 5.2 mmol/L (3.5-5.5); Total Bilirubin 0.3 mg/dL (0.30-1.20); Total Protein 5.1 g/dL (6.2-8.2)
--- NOTE | 2021-05-02 16:48 | P.PN ---
Subjective Progress Note Date: 05/02/21 Principal diagnosis: CoVID 19 pneumonia 75-year-old female patient, being hospitalized for COVID 19 related to pneumonia. Her brother is currently hospitalized for the same. Note that she had her household were all infected with COVID 19 and this includes her brother and daughter. Note that this is a not vaccinated individual. Her symptoms started approximately 9-10 days ago. She became symptomatic on 04/16/2021. She checked herself and she return agent airport to be positive. At that point, she came into the emergency department on 04/16/2021 and she was having some increased cough and body aches. And the patient was having also some increased nausea along with body aches and cough. In the emergency, the patient received monoclonal antibodies on 04/16/2021 and she was discharged home. Subsequently, her condition got worse and for that reason she came back to the hospital. Currently she had diffuse bilateral pulmonary infiltrates. She is on 6 L of oxygen by nasal cannula. Her chest x-ray is consistent with COVID 19 related pneumonia. The patient has diffuse bilateral pulmonary infiltrates. Meanwhile, the white cell count is at 8, lymphocyte count is at 0.5, INR is at 3.3 and the patient limited on warfarin outpatient basis, normal electrolytes, normal renal function, LVH level is 1061, CRP level is at 17, proBNP level is at 329. I was asked even with this patient. I saw her in the emergency. I have her currently on Decadron and should be placed on a Decadron dose of 6 mg IV every 12 hours. She is also receiving IV fluids at the rate of 130 mL an hour. 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 She has fibromyalgia and osteoarthritis and hypertension as comorbid conditions. On 04/23/2001 patient seen in follow-up on medical surgical floor. She is currently up to 8 L of oxygen pulse ox is 90%, she is still wheezing, but denies any acute distress. Afebrile. Patient remains on Decadron 6 blood gram twice daily, she is on 0.9 normal saline at a rate of 150 ML per hour, and Coumadin. Her INR is 3.3. As the labs have been reviewed, white blood cell count is 12.8, hemoglobin is 13.2, sodium is 141, potassium is 4.9, chloride is 112, BUN is 17 creatinine 0.53. On 04/24/2021 patient seen on medical surgical floor. She is awake and alert, she is currently on 8 L of oxygen her pulse ox is 92%, she sat up in the chair, she is short of breath with conversation, but overall she states she is feeling better sitting up in the chair, complaints of chest pain, she remains on Decadron 6 mg every 12 hours, she continues on COVID-19 vitamins, and she is on Coumadin for anticoagulation, today's INR is 6.9 and her Coumadin will be held, patient will receive 2.5 mg of oral vitamin K. There is some blood work has been reviewed, white blood cell, 14.3, hemoglobin is 13.2, electrolytes and renal profile are unremarkable, the patient remains on IV hydration with plan on adenosine at a rate of 130 ML per hour. On 04/25/2021 patient seen in follow-up on medical surgical floor. She is currently on 8 L of oxygen with a pulse ox of 90-92%. FiO2 has been increased compared to yesterday when she was on 7 L. Chest x-ray showing diffuse interstitial opacities similar to prior exam. She feels chilled on today's exam, but there is been no recorded fevers overnight, vital signs have been stable. Lung sounds reveal diffuse crackles, occasional cough, no phlegm production. She remains on Decadron 6 mg twice daily, she continues on IV hydration with 0.9 normal saline at around 75 ML per hour, COVID-19 vitamins, and Coumadin. Today she was given vitamin K for supratherapeutic INR of 6.9, and INR today is down to 2.0. Today's LDH has significantly improved and is at 477 down from 1061. CRP is pending. On 04/26/2021 patient seen in follow-up on medical surgical floor. She is resting in bed, she remains on 8 L of oxygen, she is on 10 L of oxygen her pulse ox is 91%. She denies worsening dyspnea however she still complaining of a headache, she is complaining of chills all over. She has a mild cough, no chest discomfort, no phlegm production. His been afebrile. She remains on Decadron 6 kg twice daily, she is on Coumadin for anticoagulation, and she is on COVID-19 vitamins, today's INR is 1.6. Her inflammatory markers were improving and yesterday's labs. Denies nausea vomiting or diarrhea. On 04/27/2021 patient seen in follow-up on medical surgical floor. She is currently on 10 L of oxygen pulse ox is 95%. Today's chest x-ray showing continued bilateral cord pneumonia. Denies 1.9 on today's labs. There is the inflammatory markers are still pending for today. She has a mild cough, but no chills, no headaches, overall she states she is feeling a little better today, breathing a bit easier. And oxygen saturations are somewhat improved on today's vitals The patient is seen today 04/28/2021 in follow-up on the regular medical floor. She is currently sitting up in bed. Awake and alert in no acute distress. She is still requiring 7 L high flow nasal cannula to maintain O2 saturations in the low 90s. Her breathing is about the same as compared to yesterday. No better. No worse. White count 14.7. Hemoglobin 13.9. Platelets 137. Leukocyte 0.5. INR 2.74. Sodium 139. Potassium 4.6. Creatinine 0.6. She is continued on warfarin, Decadron, vitamin supplements. The patient is seen today 04/29/2021 in follow-up on the regular medical floor. She is currently sitting up in bed. Having lunch. Appetite is good. No worsening shortness of breath, cough or congestion.. Feeling stronger today compared to yesterday. On 7 L high flow nasal cannula to maintain O2 saturation at 90%. Afebrile. Hemodynamically stable. White Count 16.4. Hemoglobin 14.2. Lymphocytes 0.56. INR 2.66. Sodium 137. Potassium 4.6. Creatinine 0.7. Urinalysis with large WBCs. She remains on ceftriaxone, Decadron, warfarin, vitamin supplements. The patient is seen today 05/02/2021 in follow-up on the regular medical floor. She is sitting up in a chair at the bedside. Awake and alert in no acute distress. She is maintaining O2 saturations in the low 90s on 4 L/m per nasal cannula. She's afebrile. Hemodynamically stable. White count 17.5. Hemoglobin 14.9. Sodium 139. Potassium 5.2. Creatinine 0.7. INR 2.4. His continued on Decadron, warfarin, vitamin supplements. Antibiotics in the form of ceftriaxone. She is anxious to go home. Objective - Vital Signs Vital signs: Vital Signs Temp 97.7 F 05/02/21 14:42 Pulse 80 05/02/21 14:42 Resp 20 05/02/21 14:42 BP 135/83 05/02/21 14:42 Pulse Ox 92 L 05/02/21 14:42 Intake & Output 05/01/21 05/02/21 05/02/21 18:59 06:59 18:59 Output Total 1 Balance -1 Output: Stool 1 Other: Voiding Method Bedpan Bedpan # Voids 3 2 - Exam GENERAL EXAM: Alert, pleasant 75-year-old female patient, on 4 L high flow nasal cannula, fairly comfortable in no apparent distress. HEAD: Normocephalic. EYES: Normal reaction of pupils, equal size. NOSE: Clear with pink turbinates. THROAT: No erythema or exudates. NECK: No masses, no JVD. CHEST: No chest wall deformity. LUNGS: Equal air entry with crackles in the bilateral bases. CVS: S1 and S2 normal with no audible murmur, regular rhythm. ABDOMEN: No hepatosplenomegaly, normal bowel sounds, no guarding or rigidity. SPINE: No scoliosis or deformity SKIN: No rashes CENTRAL NERVOUS SYSTEM: No focal deficits, tone is normal in all 4 extremities. EXTREMITIES: There is no peripheral edema. No clubbing, no cyanosis. Peripheral pulses are intact. - Labs CBC & Chem 7: 05/02/21 05:57 05/02/21 05:57 Labs: Abnormal Lab Results - Last 24 Hours (Table) 05/02/21 05/02/21 05/02/21 Range/Units 05:57 05:57 05:57 WBC 17.52 H (4.50-10.00) X 10*3/uL RBC 5.27 H (4.10-5.20) X 10*6/uL Hct 46.9 H (37.2-46.3) % MCHC 31.8 L (32.0-37.0) g/dL RDW 15.5 H (11.5-14.5) % Immature Gran # 0.35 H (0.00-0.04) X 10*3/uL Neutrophils # 15.24 H (1.80-7.70) X 10*3/uL Lymphocytes # 0.59 L (0.90-5.00) X 10*3/uL Monocytes # 1.28 H (0.20-1.00) X 10*3/uL Eosinophils # 0 L (0.04-0.35) X 10*3/uL PT 23.7 H (9.0-12.0) sec INR 2.4 H (<1.2) Anion Gap 9.70 L (10.00-18.00) mmol/L BUN/Creatinine Ratio 30.71 H (12.00-20.00) Ratio Glucose 117 H (70-110) mg/dL Calcium 8.6 L (8.7-10.3) mg/dL ALT 58 H (8-44) U/L Total Protein 5.1 L (6.2-8.2) g/dL Albumin 3.1 L (3.8-4.9) g/dL Albumin/Globulin Ratio 1.55 L (1.60-3.17) g/dL Microbiology - Last 24 Hours (Table) 04/30/21 20:46 Urine Culture - Final Urine,Clean Catch Assessment and Plan Assessment: 1 Acute hypoxic respiratory failure related to acute COVID-19 pneumonia. Patient came into the emergency department after symptom onset 10 days prior, patient is status post monoclonal antibody infusion on 04/16/2021. Patient is not vaccinated against COVID-19. She is currently down to 4 L of oxygen with a pulse ox of 92% 2 Previous history of DVT and PE on Coumadin 3 Hypertension 4 Osteoporosis arthritis 5 Fibromyalgia 6 Former smoker 7 History of hysterectomy 8 Supratherapeutic INR, 6.9 initially, received 2.5 mg of vitamin K, current INR 2.4 Plan: The patient was seen and evaluated by Dr. Muro Cleared for discharge from the pulmonary standpoint Will require home oxygen Follow-up in the office in 3-4 weeks I, the cosigning physician, performed a history & physical examination of the patient. Lungs sounds crackles in the bilateral bases. Maintaining good O2 saturations in the 90s on 4 L high flow nasal cannula. I discussed the assessment and plan of care with my nurse practitioner, Amy Serrano. I attest to the above note as dictated by her.
[2021-05-02] MEDS: SODIUM CHLORIDE 0.9% 1,000 ML IV SCH ×3 (17:17→17:19)
[2021-05-02] MEDS ORDERED: WARFARIN 1.5 MG TAB PO ONE (18:00)
[2021-05-03] MEDS: oxyCODONE-APAP 10-325MG 1 EACH TAB PO SCH ×3 (01:08→16:13)
[2021-05-03] MEDS: SODIUM CHLORIDE 0.9% 1,000 ML IV SCH (05:06)
[2021-05-03] MEDS: LOSARTAN 50 MG TAB PO SCH (07:26)
[2021-05-03] MEDS: CHOLECALCIFEROL 10 MCG (400 IU) TABLET PO SCH (07:26)
[2021-05-03] MEDS: DEXAMETHASONE SOD PHOSPHATE 4 MG/ML 1 ML VIAL IVP SCH (07:26)
[2021-05-03] MEDS: ASCORBIC ACID 500 MG TAB PO SCH (07:26)
[2021-05-03] MEDS: amLODIPine 5 MG TAB PO SCH (07:26)
[2021-05-03] MEDS: ZINC SULFATE 220 MG CAP PO SCH (07:26)
[2021-05-03] MEDS: LACTULOSE 20 GM/30 ML CUP PO SCH (07:27)
--- NOTE | 2021-05-03 08:19 | P.PN ---
Subjective Progress Note Date: 05/02/21 Rosie Mercer, is a 75-year-old female who presented to [facility] emergency room with a chief complaint of worsening shortness of breath She was evaluated in the emergency room vital examination on presentation revealed a temperature of 98.4 pulse 91 respiration 22 blood pressure 172/74 p ulse ox 94% on 6 L nasal cannula and 86% on room air Laboratory data revealed a white blood count of 8.1 hemoglobin 14.6 platelet count 264 INR 3.3 BUN 17 creatinine 0.63 LDH 1061 C-reactive protein 17.3 patient has a known history of positive COVID-19 PCR testing about 1 week ago she came to emergency room and received IV infusion of antibodies last week she was doing well for few days since she started having worsening shortness of breath Testing in the emergency room revealed chest x-ray done in the emergency room revealed bilateral pulmonary infiltrates consistent with pneumonia EKG revealed normal sinus rhythm normal EKG Patient was admitted to medical floor for further evaluation and treatment Past medical history is significant for history of hypertension, history of hyperlipidemia, 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 history of osteoarthritis, history of morbid obesity, On 04/23/2021 patient was seen and examined on the medical floor she is alert and oriented 3 in no apparent distress she is still complaining of shortness of breath and cough otherwise she denies any complaints, vital exam reveals a temperature of 99 pulse 84 respirations 17 blood pressure 174/82 pulse ox 90% on 8 L nasal cannula her white blood count is up to 12.8 hemoglobin 13.2 platelet count 323 INR 3.3 BUN 17 creatinine 0.53 On 04/24/2021 patient was seen and examined on the medical floor she is alert and oriented 3 in no apparent distress, she had an episode of severe anxiety was mild agitation this morning she received IV Ativan and she has settled down at this time her vital exam reveals a temperature of 97.5 pulse 79 respiration 16 and blood pressure 159/77 pulse ox 92% on 8 L nasal cannula white blood count is 14.3 hemoglobin 13.2 platelet count 287 INR is elevated at 6.9 BUN 16 creatinine 0.54 On 04/25/2021 patient was seen and examined on the medical floor she is alert and oriented 3 in no apparent distress she is still complaining of shortness of breath and cough otherwise she denies any complaints, vital exam reveals a temperature of 97.5 pulse 77 respirations 19 blood pressure 156/79 pulse ox 93% on 11 L nasal cannula her white blood count is up to 12.8 hemoglobin 13.2 platelet count 323 INR 3.3 BUN 17 creatinine 0.53 On 04/26/2021 patient was seen and examined on the medical floor she is alert and oriented 3 in no apparent distress she is sitting up in a chair she is still complaining of severe shortness of breath and cough she is also complaining of constipation for 3 days, otherwise she denies any complaints there is no fever or chills no headache or dizziness no chest pain no nausea or vomiting no abdominal pain no diarrhea and no urinary symptoms, she is maintained on oxygen via high flow cannula her pulse ox is 90% on 10 L of oxygen. On 04/27/2021 patient was seen and examined on the medical floor she is alert and oriented 3 in no apparent distress she is sitting up in a chair she is still complaining of shortness of breath and cough otherwise she denies any complaints there is no fever or chills no headache or dizziness no chest pain no nausea or vomiting no abdominal pain no diarrhea and no urinary symptoms, she is maintained on oxygen via high flow cannula her pulse ox is 90% on 8 L of oxygen. On 04/28/2021 patient was seen and examined on the medical floor she is alert and oriented 3 in no apparent distress she is still complaining of shortness of breath she is maintained on oxygen at 7 L creatinine nasal cannula there is no fever or chills no headache or dizziness no chest pain she is still having some cough there is no nausea or vomiting no abdominal pain no diarrhea no blood in the stools no burning with urination no frequency or urgency and no hematuria. Temperature is 97.5 pulse 70 respiration 22 blood pressure 155/55 pulse ox 91% on 7 L nasal cannula laboratory data reveals White blood count 14.7 hemoglobin 13.9 platelet count 137 INR 2.74 sodium 139 potassium 4.6 chloride 104 CO2 24 BUN 17 and creatinine 0.6 On 04/29/2021 patient was seen and examined on the medical floor she is alert and oriented 3 in no apparent distress she is still complaining of shortness of breath she is maintained on oxygen at 7 L creatinine nasal cannula there is no fever or chills no headache or dizziness no chest pain she is still having some cough there is no nausea or vomiting no abdominal pain no diarrhea no blood in the stools no burning with urination no frequency or urgency and no hematuria. Temperature is 97.4 pulse 59 respiration 19 blood pressure 152/63 pulse ox 94% on 7 L nasal cannula laboratory data reveals White blood count 16.4 hemoglobin 14.2 platelet count 137 INR 2.66 CMP still pending, BP is staying elevated , at this time i will add Losartan 50 mg daily, continue with Norvasc 5 mg daily. On 04/30/2021 patient was seen and examined on the medical floor she is alert and oriented 3 in no apparent distress she is still complaining of shortness of breath she is maintained on oxygen at 7 L creatinine nasal cannula there is no fever or chills no headache or dizziness no chest pain she is still having some cough there is no nausea or vomiting no abdominal pain no diarrhea no blood in the stools no burning with urination no frequency or urgency and no hematuria. Temperature is 97.5 pulse 70 respiration 18 blood pressure 149/77 pulse ox 94% on 7 L nasal cannula On 05/01/2021 patient was seen and examined on the medical floor she is alert and oriented 3 in no apparent distress she is still complaining of shortness of breath she is maintained on oxygen at 7 L creatinine nasal cannula there is no fever or chills no headache or dizziness no chest pain she is still having some cough there is no nausea or vomiting no abdominal pain no diarrhea no blood in t he stools no burning with urination no frequency or urgency and no hematuria. Temperature is 97.7 pulse 85 respiration 18 blood pressure 157/79 pulse ox 94% on 5 L nasal cannula On 05/02/2021 patient was seen and examined on the medical floor she is alert and oriented 3 in no apparent distress she is still complaining of shortness of breath she is maintained on oxygen at 7 L creatinine nasal cannula there is no fever or chills no headache or dizziness no chest pain she is still having some cough there is no nausea or vomiting no abdominal pain no diarrhea no blood in the stools no burning with urination no frequency or urgency and no hematuria. Temperature is 97.7 pulse 85 respiration 18 blood pressure 140/78 pulse ox 95% on 5 L nasal cannula . Patient is improving, plan is for discharge to home tomorrow Objective - Vital Signs Vital signs: Vital Signs Temp 97.7 F 05/02/21 09:18 Pulse 62 05/02/21 09:24 Resp 18 05/02/21 09:24 BP 166/79 05/02/21 09:18 Pulse Ox 92 L 05/02/21 09:18 Intake & Output 05/01/21 05/02/21 05/02/21 18:59 06:59 18:59 Output Total 1 Balance -1 Output: Stool 1 Other: Voiding Method Bedpan Bedpan # Voids 3 2 - Exam In general patient is alert and oriented x 3 in no distress HEENT head normocephalic and atraumatic Neck is supple no JVD no goiter no lymphadenopathy no carotid bruit Chest examination reveals scattered crackles bilaterally with wheezing Cardiac exam reveals regular heart sounds S1 and S2 no gallops no murmurs Abdomen is soft nontender no organomegaly with normal bowel sounds Extremity exam reveals no edema no cyanosis or clubbing Neurological examination reveals no gross focal deficits - Labs CBC & Chem 7: 05/02/21 05:57 05/02/21 05:57 Labs: Abnormal Lab Results - Last 24 Hours (Table) 05/02/21 05/02/21 05/02/21 Range/Units 05:57 05:57 05:57 WBC 17.52 H (4.50-10.00) X 10*3/uL RBC 5.27 H (4.10-5.20) X 10*6/uL Hct 46.9 H (37.2-46.3) % MCHC 31.8 L (32.0-37.0) g/dL RDW 15.5 H (11.5-14.5) % Immature Gran # 0.35 H (0.00-0.04) X 10*3/uL Neutrophils # 15.24 H (1.80-7.70) X 10*3/uL Lymphocytes # 0.59 L (0.90-5.00) X 10*3/uL Monocytes # 1.28 H (0.20-1.00) X 10*3/uL Eosinophils # 0 L (0.04-0.35) X 10*3/uL PT 23.7 H (9.0-12.0) sec INR 2.4 H (<1.2) Anion Gap 9.70 L (10.00-18.00) mmol/L BUN/Creatinine Ratio 30.71 H (12.00-20.00) Ratio Glucose 117 H (70-110) mg/dL Calcium 8.6 L (8.7-10.3) mg/dL ALT 58 H (8-44) U/L Total Protein 5.1 L (6.2-8.2) g/dL Albumin 3.1 L (3.8-4.9) g/dL Albumin/Globulin Ratio 1.55 L (1.60-3.17) g/dL Assessment and Plan Plan: Acute COVID-19 pneumonia Acute hypoxic respiratory failure Underlying history of hypertension Underlying history of hyperlipidemia Underlying history of lower extremity DVT maintained on Coumadin Underlying history of osteoarthritis Underlying history of morbid obesity Underlying history of degenerative disc disease maintained on narcotics for pain management Underlying history of anxiety disorder At this time patient is admitted to medical floor She was started on IV Decadron in the emergency room Patient is maintained on Coumadin and her INR is slightly on the high side at 3.3 Pulmonary and critical care consultation was requested
[2021-05-03 11:20] VITALS: BP 166/75; PULSE 78; RESP 17; TEMP 98.5
[2021-05-03] MEDS: ACETAMINOPHEN TAB 325 MG TAB PO PRN (14:08)
--- NOTE | 2021-05-03 15:54 | P.PN ---
Subjective Progress Note Date: 05/03/21 Principal diagnosis: CoVID 19 pneumonia 75-year-old female patient, being hospitalized for COVID 19 related to pneumonia. Her brother is currently hospitalized for the same. Note that she had her household were all infected with COVID 19 and this includes her brother and daughter. Note that this is a not vaccinated individual. Her symptoms started approximately 9-10 days ago. She became symptomatic on 04/16/2021. 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 At that point, she came into the emergency department on 04/16/2021 and she was having some increased cough and body aches. And the patient was having also some increased nausea along with body aches and cough. In the emergency, the patient received monoclonal antibodies on 04/16/2021 and she was discharged home. Subsequently, her condition got worse and for that reason she came back to the hospital. Currently she had diffuse bilateral pulmonary infiltrates. She is on 6 L of oxygen by nasal cannula. Her chest x-ray is consistent with COVID 19 related pneumonia. The patient has diffuse bilateral pulmonary infiltrates. Meanwhile, the white cell count is at 8, lymphocyte count is at 0.5, INR is at 3.3 and the patient limited on warfarin outpatient basis, normal electrolytes, normal renal function, LVH level is 1061, CRP level is at 17, proBNP level is at 329. I was asked even with this patient. I saw her in the emergency. I have her currently on Decadron and should be placed on a Decadron dose of 6 mg IV every 12 hours. She is also receiving IV fluids at the rate of 130 mL an hour. 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 She has fibromyalgia and osteoarthritis and hypertension as comorbid conditions. On 04/23/2001 patient seen in follow-up on medical surgical floor. She is currently up to 8 L of oxygen pulse ox is 90%, she is still wheezing, but denies any acute distress. Afebrile. Patient remains on Decadron 6 blood gram twice daily, she is on 0.9 normal saline at a rate of 150 ML per hour, and Coumadin. Her INR is 3.3. As the labs have been reviewed, white blood cell count is 12.8, hemoglobin is 13.2, sodium is 141, potassium is 4.9, chloride is 112, BUN is 17 creatinine 0.53. On 04/24/2021 patient seen on medical surgical floor. She is awake and alert, she is currently on 8 L of oxygen her pulse ox is 92%, she sat up in the chair, she is short of breath with conversation, but overall she states she is feeling better sitting up in the chair, complaints of chest pain, she remains on Decadron 6 mg every 12 hours, she continues on COVID-19 vitamins, and she is on Coumadin for anticoagulation, today's INR is 6.9 and her Coumadin will be held, patient will receive 2.5 mg of oral vitamin K. There is some blood work has been reviewed, white blood cell, 14.3, hemoglobin is 13.2, electrolytes and renal profile are unremarkable, the patient remains on IV hydration with plan on adenosine at a rate of 130 ML per hour. On 04/25/2021 patient seen in follow-up on medical surgical floor. She is currently on 8 L of oxygen with a pulse ox of 90-92%. FiO2 has been increased compared to yesterday when she was on 7 L. Chest x-ray showing diffuse interstitial opacities similar to prior exam. She feels chilled on today's exam, but there is been no recorded fevers overnight, vital signs have been stable. Lung sounds reveal diffuse crackles, occasional cough, no phlegm production. She remains on Decadron 6 mg twice daily, she continues on IV hydration with 0.9 normal saline at around 75 ML per hour, COVID-19 vitamins, and Coumadin. Today she was given vitamin K for supratherapeutic INR of 6.9, and INR today is down to 2.0. Today's LDH has significantly improved and is at 477 down from 1061. CRP is pending. On 04/26/2021 patient seen in follow-up on medical surgical floor. She is resting in bed, she remains on 8 L of oxygen, she is on 10 L of oxygen her pulse ox is 91%. She denies worsening dyspnea however she still complaining of a headache, she is complaining of chills all over. She has a mild cough, no chest discomfort, no phlegm production. His been afebrile. She remains on Decadron 6 kg twice daily, she is on Coumadin for anticoagulation, and she is on COVID-19 vitamins, today's INR is 1.6. Her inflammatory markers were improving and yesterday's labs. Denies nausea vomiting or diarrhea. On 04/27/2021 patient seen in follow-up on medical surgical floor. She is currently on 10 L of oxygen pulse ox is 95%. Today's chest x-ray showing continued bilateral cord pneumonia. Denies 1.9 on today's labs. There is the inflammatory markers are still pending for today. She has a mild cough, but no chills, no headaches, overall she states she is feeling a little better today, breathing a bit easier. And oxygen saturations are somewhat improved on today's vitals The patient is seen today 04/28/2021 in follow-up on the regular medical floor. She is currently sitting up in bed. Awake and alert in no acute distress. She is still requiring 7 L high flow nasal cannula to maintain O2 saturations in the low 90s. Her breathing is about the same as compared to yesterday. No better. No worse. White count 14.7. Hemoglobin 13.9. Platelets 137. Leukocyte 0.5. INR 2.74. Sodium 139. Potassium 4.6. Creatinine 0.6. She is continued on warfarin, Decadron, vitamin supplements. The patient is seen today 04/29/2021 in follow-up on the regular medical floor. She is currently sitting up in bed. Having lunch. Appetite is good. No worsening shortness of breath, cough or congestion.. Feeling stronger today compared to yesterday. On 7 L high flow nasal cannula to maintain O2 saturation at 90%. Afebrile. Hemodynamically stable. White Count 16.4. Hemoglobin 14.2. Lymphocytes 0.56. INR 2.66. Sodium 137. Potassium 4.6. Creatinine 0.7. Urinalysis with large WBCs. She remains on ceftriaxone, Decadron, warfarin, vitamin supplements. The patient is seen today 05/02/2021 in follow-up on the regular medical floor. She is sitting up in a chair at the bedside. Awake and alert in no acute distress. She is maintaining O2 saturations in the low 90s on 4 L/m per nasal cannula. She's afebrile. Hemodynamically stable. White count 17.5. Hemoglobin 14.9. Sodium 139. Potassium 5.2. Creatinine 0.7. INR 2.4. His continued on Decadron, warfarin, vitamin supplements. Antibiotics in the form of ceftriaxone. She is anxious to go home. The patient is seen today 05/03/2021 in follow-up on the regular medical floor. She remains awake and alert in no acute distress. She is maintaining O2 saturations in the 90s on 4 L nasal cannula. She is anxious to go home. No new labs today. She remains anticoagulated with warfarin. Continued on Decadron and vitamin supplements. Objective - Vital Signs Vital signs: Vital Signs Temp 98.5 F 05/03/21 10:00 Pulse 78 05/03/21 10:00 Resp 17 05/03/21 10:00 BP 166/75 05/03/21 10:00 Pulse Ox 92 L 05/03/21 10:00 Intake & Output 05/02/21 05/03/21 05/03/21 18:59 06:59 18:59 Intake Total 480 Output Total 1 Balance 479 Intake: Oral 480 Output: Stool 1 Other: Voiding Method Bedpan Bedpan Toilet Bedside Commode # Voids 2 # Bowel Movements 1 2 - Exam GENERAL EXAM: Alert, pleasant 75-year-old female patient, on 4 L high flow nasal cannula, fairly comfortable in no apparent distress. HEAD: Normocephalic. EYES: Normal reaction of pupils, equal size. NOSE: Clear with pink turbinates. THROAT: No erythema or exudates. NECK: No masses, no JVD. CHEST: No chest wall deformity. LUNGS: Equal air entry with crackles in the bilateral bases. CVS: S1 and S2 normal with no audible murmur, regular rhythm. ABDOMEN: No hepatosplenomegaly, normal bowel sounds, no guarding or rigidity. SPINE: No scoliosis or deformity SKIN: No rashes CENTRAL NERVOUS SYSTEM: No focal deficits, tone is normal in all 4 extremities. EXTREMITIES: There is no peripheral edema. No clubbing, no cyanosis. Peripheral pulses are intact. - Labs CBC & Chem 7: 05/02/21 05:57 05/02/21 05:57 Labs: Microbiology - Last 24 Hours (Table) 04/30/21 20:46 Urine Culture - Final Urine,Clean Catch Assessment and Plan Assessment: 1 Acute hypoxic respiratory failure related to acute COVID-19 pneumonia. Patient came into the emergency department after symptom onset 10 days prior, patient is status post monoclonal antibody infusion on 04/16/2021. Patient is not vaccinated against COVID-19. She is currently down to 4 L of oxygen with a pulse ox of 92% 2 Previous history of DVT and PE on Coumadin 3 Hypertension 4 Osteoporosis arthritis 5 Fibromyalgia 6 Former smoker 7 History of hysterectomy 8 Supratherapeutic INR, 6.9 initially, received 2.5 mg of vitamin K, current INR 2.4 Plan: The patient was seen and evaluated by Dr. Muro Cleared for discharge from the pulmonary standpoint Home oxygen is set up Follow-up in the office in 3-4 weeks I, the cosigning physician, performed a history & physical examination of the patient. Lungs sounds crackles in the bilateral bases. Maintaining good O2 saturations in the 90s on 4 L high flow nasal cannula. I discussed the assessment and plan of care with my nurse practitioner, Amy Serrano. I attest to the above note as dictated by her.
[2021-05-03] MEDS ORDERED: WARFARIN 1.5 MG TAB PO ONE (18:00)
== END 2021-05-03 16:19 | disposition home or self-care (01) | DRG 177 ==
LOC: EC 01:41 → 4SSUR 02:41
PROVIDERS: ADMIT Internal Medicine; ATTEND Internal Medicine
DX: U07.1 COVID-19 (principal); J12.82 Pneumonia due to coronavirus disease 2019; J96.01 Acute respiratory failure with hypoxia; E86.0 Dehydration; E78.5 Hyperlipidemia, unspecified; I10 Essential (primary) hypertension; M79.7 Fibromyalgia; K59.00 Constipation, unspecified; E66.01 Morbid (severe) obesity due to excess calories; M19.90 Unspecified osteoarthritis, unspecified site; M81.0 Age-related osteoporosis without current pathological fracture; R79.1 Abnormal coagulation profile; F41.9 Anxiety disorder, unspecified; Z68.39 Body mass index [BMI] 39.0-39.9, adult; Z79.899 Other long term (current) drug therapy; Z79.01 Long term (current) use of anticoagulants; Z79.891 Long term (current) use of opiate analgesic; Z86.718 Personal history of other venous thrombosis and embolism; Z86.711 Personal history of pulmonary embolism; Z87.891 Personal history of nicotine dependence; Z90.710 Acquired absence of both cervix and uterus; Z85.42 Personal history of malignant neoplasm of other parts of uterus; Z88.8 Allergy status to other drugs, medicaments and biological substances; Z86.72 Personal history of thrombophlebitis; Z83.2 Family history of diseases of the blood and blood-forming organs and certain disorders involving the immune mechanism; Z81.8 Family history of other mental and behavioral disorders
CPT/HCPCS: 36415; 71045; 80053; 81001; 83605; 83615; 83735; 83880; 84484; 85025; 85610; 85730; 86140; 87086; 93005; 94760; 99285

== ENCOUNTER 2021-06-22 13:59 | Emergency (ER) | payer MEDICARE ==
[2021-06-22 14:05] VITALS: RESP 18
[2021-06-22 15:33] LABS: Appearance,Urine Turbid (Clear); Bilirubin,Urine Negative (Negative); Blood,Urine Large (Negative); Color,Urine Red; Glucose,Urine (UA) Negative (Negative); Ketones,Urine Negative (Negative); Leukocyte Esterase,Urine Moderate (Negative); Mucus,Urine Many /hpf; Nitrite,Urine Negative (Negative); PH, Urine 5.5 (5.0-8.0); Protein,Urine 1+ (Negative); RBC,Urine >182 /hpf (0-5); Urobilinogen,Urine <2.0 mg/dL (<2.0); WBC,Urine 15 /hpf (0-5)
--- NOTE | 2021-06-22 15:33 | ED ---
General Adult HPI - General Chief complaint: Urogenital Stated complaint: Vaginal bleeding Time Seen by Provider: 06/22/21 14:29 Source: patient Mode of arrival: wheelchair Limitations: no limitations - History of Present Illness Initial comments: Dictation was produced using [employer] dictation software. please excuse any grammatical, word or spelling errors. Chief Complaint: Patient is a 76-year-old male presents to the emergency department for hematuria History of Present Illness: Every 6-year-old. She presents to 1-2 days of he maturia. Patient states she was diagnosed with a urinary tract infection about 10 days ago. She's been on ampicillin since. Patient does not have any complaints. She denies any suprapubic pain or flank pain. No fevers. No abdominal pain or nausea. Denies any dysuria. She denies any vaginal bleeding The ROS documented in this emergency department record has been reviewed and confirmed by me. Those systems with pertinent positive or negative responses have been documented in the HPI. All other systems are other negative and/or noncontributory. PHYSICAL EXAM: General Impression: Alert and oriented x3, not in acute distress HEENT: Normocephalic atraumatic, extra-ocular movements intact, pupils equal and reactive to light bilaterally, mucous membranes moist. Cardiovascular: Heart regular rate and rhythm Chest: Able to complete full sentences, no retractions, no tachypnea Abdomen: abdomen soft, non-tender, non-distended, no organomegaly Musculoskeletal: Pulses present and equal in all extremities, no peripheral edema Motor: no focal deficits noted Neurological: CN II-XII grossly intact, no focal motor or sensory deficits noted Skin: Intact with no visualized rashes Psych: Normal affect and mood ED course: 76-year-old female presents to the emergency Department with hematuria. Vital signs upon arrival shows heart rate of 113, rest of vital signs within acceptable limits. Physical examination is benign. Laboratory evaluation obtained. Urinalysis shows greater than 182 red blood cells. Mrs. 50 white blood cells. Negative for nitrites. Patient reevaluated bedside at 4:00 PM found to be in stable medical condition. At this point clinical presentation consistent with hematuria. She is not expressing any symptoms of urinary retention. Patient urine sent for culture. Patient discharged given outpatient referral to urology. told to return for urinary retention. - Related Data Home Medications Medication Instructions Recorded Confirmed amLODIPine BESYLATE [Norvasc] 5 mg PO DAILY 02/23/14 04/22/21 Acetaminophen [Tylenol Extra 500 mg PO Q6H PRN 04/22/21 04/22/21 Strength] Warfarin Sodium 4 mg PO DAILY 04/22/21 04/22/21 oxyCODONE-APAP 10-325MG [Percocet 1 tab PO Q8HR 04/22/21 04/22/21 10-325 mg] Previous Rx's Medication Instructions Recorded Ascorbic Acid [Vitamin C] 500 mg PO BID tab 05/03/21 Cefuroxime Axetil [Ceftin] 500 mg PO BID 7 Days #14 tab 05/03/21 Cholecalciferol [Vitamin D3 (25 50 mcg PO DAILY 30 Days #30 tab 05/03/21 Mcg = 1000 Iu)] Dexamethasone [Decadron] 6 mg PO DAILY 10 Days #10 tablet 05/03/21 Ibuprofen [Motrin] 400 mg PO Q6HR PRN tab 05/03/21 Lactulose [Cephulac] 20 gm PO DAILY ml 05/03/21 Losartan [Cozaar] 50 mg PO DAILY tab 05/03/21 Zinc Sulfate [Orazinc] 220 mg PO DAILY cap 05/03/21 Allergies Allergy/AdvReac Type Severity Reaction Status Date / Time omeprazole Allergy Rash/Hives Verified 06/22/21 14:05 Review of Systems ROS Statement: Those systems with pertinent positive or pertinent negative responses have been documented in the HPI. ROS Other: All systems not noted in ROS Statement are negative. Past Medical History Past Medical History: Blood Disorder, Cancer, Deep Vein Thrombosis (DVT), Fibromyalgia, Hypertension, Osteoarthritis (OA), Pulmonary Embolus (PE) Additional Past Medical History / Comment(s): frequent muscle spasms around rib cage, numbness in arms from carpal tunnel, hx. uterine cancer, has clotting disorder- phlebitis, right knee dvt 9 months ago History of Any Multi-Drug Resistant Organisms: None Reported Past Surgical History: Hysterectomy Past Anesthesia/Blood Transfusion Reactions: No Reported Reaction Past Psychological History: No Psychological Hx Reported Smoking Status: Former smoker Past Alcohol Use History: Rare Past Drug Use History: None Reported - Past Family History Sister(s) Family Medical History: Deep Vein Thrombosis (DVT) Additional Family Medical History / Comment(s): oldest sister schizophrenic Brother(s) Family Medical History: Deep Vein Thrombosis (DVT) Mother Additional Family Medical History / Comment(s): manic depression, blood clotting disorder- phlebitis General Exam Limitations: no limitations Course Vital Signs 06/22/21 13:59 Temperature 97.0 F L Pulse Rate 113 H Respiratory 18 Rate Blood Pressure 156/79 O2 Sat by Pulse 96 Oximetry Medical Decision Making - Lab Data Lab Results 06/22/21 Range/Units 15:10 Urine Color Red Urine Appearance Turbid H (Clear) Urine pH 5.5 (5.0-8.0) Ur Specific [place] 1.020 (1.001-1.035) Urine Protein 1+ H (Negative) Urine Glucose (UA) Negative (Negative) Urine Ketones Negative (Negative) Urine Blood Large H (Negative) Urine Nitrite Negative (Negative) Urine Bilirubin Negative (Negative) Urine Urobilinogen <2.0 (<2.0) mg/dL Ur Leukocyte Esterase Moderate H (Negative) Urine RBC >182 H (0-5) /hpf Urine WBC 15 H (0-5) /hpf Urine Mucus Many H (None) /hpf Disposition Clinical Impression: Hematuria Disposition: HOME SELF-CARE Condition: Fair Instructions (If sedation given, give patient instructions): Hematuria (ED) Is patient prescribed a controlled substance at d/c from ED?: No Referrals: Analilia Kent MD [Primary Care Provider] - 1-2 days Ricky Rivera MD [STAFF PHYSICIAN] - 1-2 days Mahamed Aguilar MD [STAFF PHYSICIAN] - 1-2 days
[2021-06-22 16:25] VITALS: BP 140/72; PULSE 84; TEMP 98.9
== END 2021-06-22 16:32 | disposition home or self-care (01) ==
LOC: EC 13:59
DX: R31.9 Hematuria, unspecified (principal); I10 Essential (primary) hypertension; M19.90 Unspecified osteoarthritis, unspecified site; M79.7 Fibromyalgia; Z87.891 Personal history of nicotine dependence; Z88.8 Allergy status to other drugs, medicaments and biological substances; Z79.899 Other long term (current) drug therapy; Z87.440 Personal history of urinary (tract) infections
CPT/HCPCS: 81001; 87086; 99283

== ENCOUNTER 2021-07-30 22:25 | Emergency (ER) | payer MEDICARE ==
[2021-07-30 22:46] VITALS: TEMP 97.8
[2021-07-30] MEDS ORDERED: SODIUM CHLORIDE 0.9% 500 ML 500 ML IV STA (22:57)
[2021-07-30 23:34] LABS: Basophils % (A) 0 %; Eosinophils # (A) 0.1 k/uL (0-0.7); Eosinophils % (A) 1 %; HCT 40.9 % (34.0-46.0); HGB 13.1 gm/dL (11.4-16.0); Hypochromasia Slight; Lymphocytes # (A) 0.2 k/uL (1.0-4.8); Lymphocytes % (A) 1 %; MCH 29.6 pg (25.0-35.0); MCHC 32.1 g/dL (31.0-37.0); MCV 92.4 fL (80.0-100.0); Mean Platelet Volume 7.9; Monocytes # (A) 0.2 k/uL (0-1.0); Monocytes % (A) 1 %; Neutrophils # (A) 17.4 k/uL (1.3-7.7); Neutrophils % (A) 97 %; Platelet Count 264 k/uL (150-450); RBC 4.42 m/uL (3.80-5.40); RDW 15.8 % (11.5-15.5)
--- NOTE | 2021-07-30 23:39 | ED ---
Abdominal Pain HPI - General Chief Complaint: Abdominal Pain Stated Complaint: Abd Pain Time Seen by Provider: 07/30/21 22:37 Source: patient, EMS Mode of arrival: EMS - History of Present Illness Initial Comments: There is a 76-year-old lady who presents to the emergency department today via ambulance for evaluation of abdominal pain. Patient reports that approximately one hour prior to arrival she developed sudden onset of lower abdominal pain nausea and had multiple episodes of nonbloody nonbilious emesis. He symptoms began after eating. She reports she suffers from chronic constipation due to vacations however she did have a bowel movement earlier today. - Related Data Home Medications Medication Instructions Recorded Confirmed amLODIPine BESYLATE [Norvasc] 5 mg PO DAILY 02/23/14 04/22/21 Acetaminophen [Tylenol Extra 500 mg PO Q6H PRN 04/22/21 04/22/21 Strength] Warfarin Sodium 4 mg PO DAILY 04/22/21 04/22/21 oxyCODONE-APAP 10-325MG [Percocet 1 tab PO Q8HR 04/22/21 04/22/21 10-325 mg] Previous Rx's Medication Instructions Recorded Ascorbic Acid [Vitamin C] 500 mg PO BID tab 05/03/21 Cefuroxime Axetil [Ceftin] 500 mg PO BID 7 Days #14 tab 05/03/21 Cholecalciferol [Vitamin D3 (25 50 mcg PO DAILY 30 Days #30 tab 05/03/21 Mcg = 1000 Iu)] Dexamethasone [Decadron] 6 mg PO DAILY 10 Days #10 tablet 05/03/21 Ibuprofen [Motrin] 400 mg PO Q6HR PRN tab 05/03/21 Lactulose [Cephulac] 20 gm PO DAILY ml 05/03/21 Losartan [Cozaar] 50 mg PO DAILY tab 05/03/21 Zinc Sulfate [Orazinc] 220 mg PO DAILY cap 05/03/21 Cephalexin [Keflex] 500 mg PO Q12HR 1 Days #2 cap 07/31/21 Allergies Allergy/AdvReac Type Severity Reaction Status Date / Time omeprazole Allergy Rash/Hives Verified 07/30/21 22:46 Review of Systems ROS Statement: Those systems with pertinent positive or pertinent negative responses have been documented in the HPI. ROS Other: All systems not noted in ROS Statement are negative. Past Medical History Past Medical History: Blood Disorder, Cancer, Deep Vein Thrombosis (DVT), Fibromyalgia, Hypertension, Osteoarthritis (OA), Pulmonary Embolus (PE) Additional Past Medical History / Comment(s): frequent muscle spasms around rib cage, numbness in arms from carpal tunnel, hx. uterine cancer, has clotting disorder- phlebitis, right knee dvt 9 months ago History of Any Multi-Drug Resistant Organisms: None Reported Past Surgical History: Hysterectomy Past Anesthesia/Blood Transfusion Reactions: No Reported Reaction Past Psychological History: No Psychological Hx Reported Smoking Status: Former smoker Past Alcohol Use History: Rare Past Drug Use History: None Reported - Past Family History Sister(s) Family Medical History: Deep Vein Thrombosis (DVT) Additional Family Medical History / Comment(s): oldest sister schizophrenic Brother(s) Family Medical History: Deep Vein Thrombosis (DVT) Mother Additional Family Medical History / Comment(s): manic depression, blood clotting disorder- phlebitis General Exam - General Exam Comments Initial Comments: Physical Exam GENERAL: Patient is well-developed and well-nourished. Appears slightly dehydrated HENT: Normocephalic, Atraumatic. EYES: PERRL, EOMI PULMONARY: Unlabored respirations. No audible rales rhonchi or wheezing was noted. CARDIOVASCULAR: There is a regular rate and rhythm without any murmurs gallops or rubs. ABDOMEN: Soft Diffuse tenderness, worse in RLQ SKIN: Skin is clear with no lesions or rashes and otherwise unremarkable. : Deferred NEUROLOGIC: Patient is alert and oriented x3. Moving all extremities spontaneously MUSCULOSKELETAL: Normal extremities with adequate strength and full range of motion. No lower extremity swelling or edema. No calf tenderness. PSYCHIATRIC: Normal psychiatric evaluation. Course Vital Signs 07/30/21 22:44 Temperature 97.8 F Pulse Rate 100 Respiratory 18 Rate Blood Pressure 150/84 O2 Sat by Pulse 97 Oximetry Medical Decision Making - Medical Decision Making Patient was seen and evaluated history is obtained from the patient Labs and imaging were obtained, labs reveal leukocytosis with neutrophilia Computed tomography scan confirms a right-sided stone measuring only 3 mm Patient had no pain or vomiting in the emergency department, she is afebrile and tolerating oral intake, I did offer to admit her to the hospital due to the stones patient was adamant that she should be discharged home - Lab Data Result diagrams: 07/30/21 23:20 07/30/21 23:20 Lab Results 07/30/21 07/30/21 07/30/21 Range/Units 23:20 23:20 23:20 WBC 18.0 H (3.8-10.6) k/uL RBC 4.42 (3.80-5.40) m/uL Hgb 13.1 (11.4-16.0) gm/dL Hct 40.9 (34.0-46.0) % MCV 92.4 (80.0-100.0) fL MCH 29.6 (25.0-35.0) pg MCHC 32.1 (31.0-37.0) g/dL RDW 15.8 H (11.5-15.5) % Plt Count 264 (150-450) k/uL MPV 7.9 Neutrophils % 97 % Lymphocytes % 1 % Monocytes % 1 % Eosinophils % 1 % Basophils % 0 % Neutrophils # 17.4 H (1.3-7.7) k/uL Lymphocytes # 0.2 L (1.0-4.8) k/uL Monocytes # 0.2 (0-1.0) k/uL Eosinophils # 0.1 (0-0.7) k/uL Basophils # 0.0 (0-0.2) k/uL Hypochromasia Slight Sodium 134 L (137-145) mmol/L Potassium 3.8 (3.5-5.1) mmol/L Chloride 101 (98-107) mmol/L Carbon Dioxide 25 (22-30) mmol/L Anion Gap 8 mmol/L BUN 17 (7-17) mg/dL Creatinine 0.80 (0.52-1.04) mg/dL Est GFR (CKD-EPI)AfAm 83 (>60 ml/min/1.73 sqM) Est GFR (CKD-EPI)NonAf 72 (>60 ml/min/1.73 sqM) Glucose 144 H (74-99) mg/dL Plasma Lactic Acid Get (0.7-2.0) mmol/L Calcium 9.4 (8.4-10.2) mg/dL Total Bilirubin 0.7 (0.2-1.3) mg/dL AST 28 (14-36) U/L ALT 20 (4-34) U/L Alkaline Phosphatase 69 (38-126) U/L Total Protein 6.3 (6.3-8.2) g/dL Albumin 3.5 (3.5-5.0) g/dL Lipase 33 (23-300) U/L Urine Color Yellow Urine Appearance Cloudy H (Clear) Urine pH 6.5 (5.0-8.0) Ur Specific [place] 1.027 (1.001-1.035) Urine Protein Trace H (Negative) Urine Glucose (UA) Negative (Negative) Urine Ketones 1+ H (Negative) Urine Blood Moderate H (Negative) Urine Nitrite Positive H (Negative) Urine Bilirubin Negative (Negative) Urine Urobilinogen <2.0 (<2.0) mg/dL Ur Leukocyte Esterase Large H (Negative) Urine RBC 22 H (0-5) /hpf Urine WBC >182 H (0-5) /hpf Urine Bacteria Rare H (None) /hpf Urine Mucus Rare H (None) /hpf 07/30/21 Range/Units 23:20 WBC (3.8-10.6) k/uL RBC (3.80-5.40) m/uL Hgb (11.4-16.0) gm/dL Hct (34.0-46.0) % MCV (80.0-100.0) fL MCH (25.0-35.0) pg MCHC (31.0-37.0) g/dL RDW (11.5-15.5) % Plt Count (150-450) k/uL MPV Neutrophils % % Lymphocytes % % Monocytes % % Eosinophils % % Basophils % % Neutrophils # (1.3-7.7) k/uL Lymphocytes # (1.0-4.8) k/uL Monocytes # (0-1.0) k/uL Eosinophils # (0-0.7) k/uL Basophils # (0-0.2) k/uL Hypochromasia Sodium (137-145) mmol/L Potassium (3.5-5.1) mmol/L Chloride (98-107) mmol/L Carbon Dioxide (22-30) mmol/L Anion Gap mmol/L BUN (7-17) mg/dL Creatinine (0.52-1.04) mg/dL Est GFR (CKD-EPI)AfAm (>60 ml/min/1.73 sqM) Est GFR (CKD-EPI)NonAf (>60 ml/min/1.73 sqM) Glucose (74-99) mg/dL Plasma Lactic Acid Get 2.7 H* (0.7-2.0) mmol/L Calcium (8.4-10.2) mg/dL Total Bilirubin (0.2-1.3) mg/dL AST (14-36) U/L ALT (4-34) U/L Alkaline Phosphatase (38-126) U/L Total Protein (6.3-8.2) g/dL Albumin (3.5-5.0) g/dL Lipase (23-300) U/L Urine Color Urine Appearance (Clear) Urine pH (5.0-8.0) Ur Specific [place] (1.001-1.035) Urine Protein (Negative) Urine Glucose (UA) (Negative) Urine Ketones (Negative) Urine Blood (Negative) Urine Nitrite (Negative) Urine Bilirubin (Negative) Urine Urobilinogen (<2.0) mg/dL Ur Leukocyte Esterase (Negative) Urine RBC (0-5) /hpf Urine WBC (0-5) /hpf Urine Bacteria (None) /hpf Urine Mucus (None) /hpf Disposition Clinical Impression: Kidney stone Disposition: HOME SELF-CARE Condition: Stable Additional Instructions: Return to the emergency department if he develop any fever, worsening pain, inability to take antibiotics, vomiting or any new or concerning symptoms Prescriptions: Cephalexin [Keflex] 500 mg PO Q12HR 1 Days #2 cap Is patient prescribed a controlled substance at d/c from ED?: No Referrals: Analilia Kent MD [Primary Care Provider] - 1-2 days
[2021-07-30 23:46] LABS: Albumin 3.5 g/dL (3.5-5.0); Calcium 9.4 mg/dL (8.4-10.2); Potassium 3.8 mmol/L (3.5-5.1); Total Bilirubin 0.7 mg/dL (0.2-1.3); Total Protein 6.3 g/dL (6.3-8.2)
[2021-07-31] MEDS ORDERED: cefTRIAXone IN SWFI 1,000 MG/10 ML SYRINGE IVP STA (00:29)
[2021-07-31] MEDS ORDERED: metroNIDAZOLE-NS PMX 500 MG in SALINE 1 100ML.BAG IVPB STA (00:29)
--- NOTE | 2021-07-31 00:44 | CT ---
EXAMINATION TYPE: CT abdomen pelvis w con DATE OF EXAM: 07/31/2021 COMPARISON: 12/09/2012 HISTORY: RLQ Abd Pain, Nausea CT DLP: 1653.80 mGycm Automated exposure control for dose reduction was used. CONTRAST: Performed with IV Contrast, patient injected with 100 mL of Isovue 300. Images obtained from the diaphragm to the floor the pelvis with IV contrast Isovue. FINDINGS: There is some atelectasis at the lung bases. There is no pleural effusion. Liver and spleen are intac t. The bile ducts are nondilated. Stomach is intact. There is small hiatal hernia. There is no eviden ce of pancreatic mass. Gallbladder is distended and measures 4.4 cm in diameter. There is no adrenal mass. Kidneys show satisfactory contrast opacification. There is delayed right-si ded pyelogram. There is right-sided hydronephrosis with 3 mm obstructing calculus at the ureteropelvi c junction. There is no retroperitoneal adenopathy. Left kidney shows satisfactory excretion on the d elayed images. The bladder distends smoothly. There is no inguinal hernia. There is no free fluid in the pelvis. There is no evidence of pelvic mass. There is hysterectomy. Appendix is posterior and evelyn ears normal. There is no mesenteric edema. There is no ascites or free air. There is no bowel obstruc tion. The lumbar vertebra show a first-degree L5-S1 spondylolisthesis. There is no compression fracture. Th ere is bilateral L5 spondylolysis. The bony pelvis appears intact. Hip joints are intact. IMPRESSION: Small obstructing calculus at the right ureteropelvic junction with hydronephrosis. Obstruction is ne w compared to old exam. Normal appendix.
[2021-07-31 01:03] LABS: Appearance,Urine Cloudy (Clear); Bacteria,Urine Rare /hpf; Bilirubin,Urine Negative (Negative); Blood,Urine Moderate (Negative); Color,Urine Yellow; Glucose,Urine (UA) Negative (Negative); Ketones,Urine 1+ (Negative); Leukocyte Esterase,Urine Large (Negative); Mucus,Urine Rare /hpf; Nitrite,Urine Positive (Negative); PH, Urine 6.5 (5.0-8.0); Protein,Urine Trace (Negative); RBC,Urine 22 /hpf (0-5); Specific Gravity,Urine 1.027 (1.001-1.035); Urobilinogen,Urine <2.0 mg/dL (<2.0); WBC,Urine >182 /hpf (0-5)
[2021-07-31 01:55] VITALS: BP 158/69; PULSE 68; RESP 17
== END 2021-07-31 01:55 | disposition home or self-care (01) ==
LOC: EC 22:25
DX: N20.0 Calculus of kidney (principal); I10 Essential (primary) hypertension; M19.90 Unspecified osteoarthritis, unspecified site; Z86.718 Personal history of other venous thrombosis and embolism; Z86.711 Personal history of pulmonary embolism; Z85.42 Personal history of malignant neoplasm of other parts of uterus; Z90.710 Acquired absence of both cervix and uterus; Z87.891 Personal history of nicotine dependence
CPT/HCPCS: 99284; 36415; 80053; 83605; 83690; 85025; 81001; 87086; 87077; 87186; 74177; Q9967

== ENCOUNTER → 2022-01-16 | Outpatient (CLI) | payer MEDICARE, OTHER ==
--- NOTE | 2022-01-16 08:12 | CT ---
EXAMINATION TYPE: CT brain wo con CT DLP: 1017.9 mGycm, Automated exposure control for dose reduction was used. DATE OF EXAM: 01/16/2022 7:58 AM COMPARISON: CT facial bones 11/13/2010. CLINICAL INDICATION:Female, 76 years old with history of S09.90XA, Head injury TECHNIQUE: Brain: Multiple axial CT images of the brain were obtained without IV contrast. Coronal and sagittal reformats reviewed. FINDINGS: Brain: Extra-axial spaces: No abnormal extra-axial fluid collections. Ventricular system: Within normal limits Cerebral parenchyma: No acute intraparenchymal hemorrhage or mass effect. The salgado-white junction is well differentiated. Scattered hypoattenuating areas are seen within the white matter. Cerebral vol ume loss. Empty sella morphology. Cerebellum: Unremarkable. Mass effect: No evidence of midline shift. Intracranial vasculature: Atherosclerotic calcifications of the intracranial vessels. Soft tissues: Normal. Calvarium/osseous structures: No depressed skull fracture. Paranasal sinuses and mastoid air cells: Clear Visualized orbits: Orbital contents are intact. IMPRESSION: No acute intracranial process.
== END | disposition home or self-care (01) ==
LOC: RADCTMAIN 07:36
PROVIDERS: ATTEND Internal Medicine
DX: S09.90XA Unspecified injury of head, initial encounter (principal)
CPT/HCPCS: 70450

== ENCOUNTER → 2022-07-11 | Outpatient (CLI) | payer MEDICARE, OTHER ==
--- NOTE | 2022-07-12 06:55 | MR ---
EXAMINATION TYPE: MR lumbar spine wo con DATE OF EXAM: 07/11/2022 COMPARISON: CT abdomen and pelvis July 31, 2021 HISTORY: LBP, RLE radiculopathy, hx fall. TECHNIQUE: Multiplanar, multisequence imaging of the lumbar spine is performed without IV contrast. FINDINGS: Sagittal images of the lumbar spine show vertebral body heights to remain satisfactory. Gra de 1 anterolisthesis L5 on S1 is redemonstrated. Multilevel disc desiccation is seen. There is modera te disc space narrowing L2-L3 level redemonstrated. There is mild disc space narrowing L4-L5 level re demonstrated. There is moderate to advanced disc space narrowing with vacuum disc phenomenon at L5-S1 level redemonstrated. The conus medullaris is normal in position and signal ending superior L1 level . The bone marrow signal intensity is overall heterogeneous with scattered small hemangiomas. Axial images beginning at T12-L1 level shows mild broad-based disc bulge mildly effacing the anterior thecal and mild facet arthropathy bilaterally. Axial images at L1-L2 show similar findings mild broad disc bulge minimally effaces the anterior thec al sac and mild facet arthropathy bilaterally effacing the posterior lateral thecal sac. Patent bilat eral neural foramina. Axial images at L2-L3 level mild/moderate broad-based posterior disc protrusion mildly effacing the a nterior thecal sac. Axial images at L3-L4 level shows mild to moderate facet arthropathy and ligamentum flavum hypertroph y effacing the left posterior lateral thecal sac. There is mild broad disc bulge. Mild right-sided an terior inferior neural foraminal narrowing is seen. Axial images at the L4-L5 level shows mild to moderate facet arthropathy bilaterally greatest inferio rly. There is mild broad-based posterior disc protrusion. There is mild bilateral anterior inferior n eural foraminal narrowing. Axial images at L5-S1 levels with spondylolisthesis and mild broad-based posterior disc protrusion. T here is moderate to advanced facet arthropathy bilaterally. Spinal canal is preserved. There is moder ate right greater than left bilateral neural foraminal narrowing mostly on the basis of spondylolisth esis but also disc herniation. Encroachment on right L5 nerve is felt present axial image 3 and sagit nila image 13 along the anterior aspect. There is 1.6 cm simple appearing thin-walled cyst in the right kidney axial image 16 now present. Imp roved right-sided hydronephrosis noted. IMPRESSION: Multilevel degenerative changes in the lumbar spine as detailed above. Encroachment on ri ght L5 nerve noted which would correlate with patient's symptoms.
== END | disposition home or self-care (01) ==
LOC: RADMRIMAIN 14:34
PROVIDERS: ATTEND Internal Medicine
DX: M51.17 Intervertebral disc disorders with radiculopathy, lumbosacral region (principal); M47.26 Other spondylosis with radiculopathy, lumbar region; M99.73 Connective tissue and disc stenosis of intervertebral foramina of lumbar region; M43.17 Spondylolisthesis, lumbosacral region
CPT/HCPCS: 72148

== ENCOUNTER 2022-09-03 08:14 | Day surgery (SDC) | payer MEDICARE, OTHER ==
[~2022-09-03 08:14] MED LIST: LACTATED RINGERS 1,000 ML IV SCH; LIDOCAINE 1% (10MG/ML) FOR IV START INTRADERMA PRN
[2022-09-03 10:13] VITALS: TEMP 97
[2022-09-03 10:24] LABS: INR 1.1 (<1.2); Prothrombin Time 11.4 sec (9.0-12.0)
[2022-09-03] MEDS ORDERED: methylPREDNISolone ACETATE 40 MG/ML 1 ML VIAL ONE (10:42)
[2022-09-03] MEDS ORDERED: MIDAZOLAM 2 MG/2 ML VIAL ONE (10:42)
[2022-09-03] MEDS ORDERED: IOPAMIDOL M200 10 ML VIAL ONE (10:42)
--- NOTE | 2022-09-03 10:54 | P.PCN ---
Date of Procedure: 09/03/22 Procedure(s) Performed: PREOPERATIVE DIAGNOSIS: 1- Lumbar Degenerative Disc Diseases 2-Lumbar spondylosis with Facet arthropathy without myelopathy. POSTOPERATIVE DIAGNOSIS: Same as preop diagnosis. PROCEDURE 1. Lumbar epidural steroid injection under fluoroscopic guidance at the L5-S1 level. (Fluoroscopy imaging was available in radiology department) 2. Lumbar epidurogram. ANESTHESIA: moderate sedation with intravenous Versed 2 mg . Sedation start time : 1046 Sedation end time : 1052 EBL: Minimal PROCEDURE INDICATION: The patient with low back pain and radiculitis symptoms unresponsive to conservative treatment. Fluoroscopy was used to optimize visualization of the needle placement and to maximize safety. PROCEDURE DESCRIPTION / TECHNIQUE: The patient was seen and identified in the preoperative area. Risks, benefits, complications including but not limited to infections ,bleeding ,allergic reaction to the medications ,nerve damage and not complete pain releife , and alternatives were discussed with the patient. The patient agreed to proceed with the procedure and signed the consent. IV was started, and vital signs were stable. Patient was taken to the OR and time out was completed. The patient was placed in the prone position on procedure table and a pillow was placed under the abdomen to reduce lumbar lordosis. The lumbosacral area was prepped and draped in the usual sterile fashion.ere closely monitored during the procedure. Conscious sedation was used during the procedure to decrease patients anxiety. Vital signs was monitered during the entire procedure. Using anterior-posterior fluoroscopy, the L5-S1 interlaminar space was identified and the skin over this site was marked and then infiltrated with 1% lidocaine subcutaneously. Subsequently, a 20-gauge Tuohy epidural needle was inserted and advanced toward the epidural space using the ``Loss of resistance technique and guided by AP and lateral fluoroscopy. The correct needle position in the epidural space was verified with the injection of 2 mL of the water soluble contrast dye Isovue 200 contrast and observing an excellent epidurogram with the epidural spread of the dye, after negative aspiration for blood and CSF and in the absence of paresthesias. Again after negative aspiration, a 6 ml mixture containing 40 mg of Depo-medrol ( Preservetive Free ), and 2 ml of preservative free Normal Saline, and 2 ml of preservative free lidocaine 1% solution was injected and a washout of epidurogram was seen. Needle was withdrawn intact, skin was cleansed, and bandages were applied. COMPLICATIONS: None DISPOSITION / PLANS: The patient was placed in a supine position and transferred to the recovery area in a stable condition for observation. There was no evidence of lower extremity motor or sensory deficit after the procedure. Patient was discharged from the recovery room after meeting discharge criteria. Home discharge instructions were given to the patient by the staff. The patient was reexamined prior to discharge. The patient will schedule a follow up in the clinic in 2-4 weeks. Last dose of Coumadin was 5 days ago, PT and INR was appropriate to do the procedure
[2022-09-03] MEDS ORDERED: IV FLUID CONTINUATION 800 ML IV ONE (10:58)
[2022-09-03 11:02] VITALS: RESP 16
--- NOTE | 2022-09-03 11:04 | FL ---
EXAMINATION TYPE: FL guided pain mgmt statistic DATE OF EXAM: 09/03/2022 CLINICAL HISTORY: Low back pain. TECHNIQUE: Fluoroscopy. COMPARISON: None. FINDINGS: Fluoroscopic guidance was provided during pain relief procedure performed by Dr. Menard . A total of 1.9 seconds of fluoroscopic time was utilized during the procedure and 1 spot images ar e acquired. Single image acquired shows needle localization at L5 level with contrast injection. IMPRESSION: As Above.
[2022-09-03 11:18] VITALS: BP 127/74; PULSE 80
== END 2022-09-03 11:39 | disposition home or self-care (01) ==
LOC: ORPAIN 08:14
PROVIDERS: ATTEND Specialist
DX: M51.16 Intervertebral disc disorders with radiculopathy, lumbar region (principal); M47.26 Other spondylosis with radiculopathy, lumbar region; Z88.8 Allergy status to other drugs, medicaments and biological substances
CPT/HCPCS: 85610; 62323; J2250; J1030; Q9966

== ENCOUNTER 2024-04-20 09:07 | Day surgery (SDC) | payer MEDICARE, OTHER ==
[2024-04-16 12:01] VITALS: BMI 36.8
[2024-04-20 09:55] VITALS: TEMP 97
[2024-04-20] MEDS: LACTATED RINGERS 1,000 ML IV SCH (09:55)
[2024-04-20] MEDS: IV FLUID CONTINUATION 1,000 ML IV ONE (09:55)
[2024-04-20] MEDS ORDERED: LIDOCAINE 1% INJ 10MG/ML (20 ML MDV) ONE (10:15)
[2024-04-20] MEDS ORDERED: PROPOFOL 10 MG/ML 20 ML VIAL IV ONE (10:15)
--- NOTE | 2024-04-20 10:17 | P.GSHP ---
History of Present Illness H&P Date: 04/20/24 Chief Complaint: Abnormal Cologuard 78-year-old female here for colonoscopy. Last colonoscopy 8 years ago. Patient with history of polyps. Recent Cologuard was positive. No bowel complaints. No rectal bleeding. Past Medical History Past Medical History: Blood Disorder, Cancer, Deep Vein Thrombosis (DVT), Fibromyalgia, GERD/Reflux, Hypertension, Osteoarthritis (OA), Pulmonary Embolus (PE), Renal Disease, Syncope Additional Past Medical History / Comment(s): frequent muscle spasms around rib cage, numbness in arms from carpal tunnel, leg muscle spasms, uterine cancer/hysterectomy, has clotting disorder- phlebitis, right behind knee dvt , PE in L lung, kidney stone, urinary frequency at night/incontinence. History of Any Multi-Drug Resistant Organisms: ESBL Date of last positivie culture/infection: 07/30/21 MDRO Source:: ESBL URINE Past Surgical History: Hysterectomy, Orthopedic Surgery, Tonsillectomy Additional Past Surgical History / Comment(s): right knee replaced Past Anesthesia/Blood Transfusion Reactions: Motion Sickness Additional Past Anesthesia/Blood Transfusion Reaction / Comment(s): Motion sickness as a child. Pt has never had a blood transfusion. Smoking Status: Former smoker - Past Family History Sister(s) Family Medical History: Deep Vein Thrombosis (DVT) Additional Family Medical History / Comment(s): oldest sister schizophrenic Brother(s) Family Medical History: Deep Vein Thrombosis (DVT) Mother Additional Family Medical History / Comment(s): manic depression, blood clotting disorder- phlebitis Medications and Allergies Home Medications Medication Instructions Recorded Confirmed Type Acetaminophen [Tylenol Extra 500 mg PO Q6H PRN 04/22/21 04/16/24 History Strength] Warfarin Sodium 4 mg PO QAM 04/22/21 04/16/24 History oxyCODONE-APAP 10-325MG [Percocet 1 tab PO Q6HR PRN 04/22/21 04/16/24 History 10-325 mg] Ascorbic Acid [Vitamin C] 500 mg PO BID tab 05/03/21 04/16/24 Rx Cholecalciferol [Vitamin D3 (25 50 mcg PO QAM 08/29/22 04/16/24 History Mcg = 1000 Iu)] Healthy Skin And Nail 1 tab PO QAM 08/29/22 04/16/24 History Losartan [Cozaar] 100 mg PO QAM 08/29/22 04/16/24 History Melatonin [Melatonin Tr] 10 mg PO HS PRN 08/29/22 04/16/24 History Allergies Allergy/AdvReac Type Severity Reaction Status Date / Time omeprazole Allergy Rash/Hives Verified 04/20/24 09:44 Surgical - Exam Vital Signs Temp Pulse Resp BP Pulse Ox 97.0 F L 90 16 144/65 96 04/20/24 09:49 04/20/24 09:49 04/20/24 09:49 04/20/24 09:49 04/20/24 09:49 Physical exam: General: Well-developed, well-nourished HEENT: Normocephalic, sclerae nonicteric Abdomen: Nontender, nondistended Extremities: No edema Neuro: Alert and oriented Assessment and Plan (1) Positive colorectal cancer screening using Cologuard test Narrative/Plan: Will proceed with colonoscopy at this time. Current Visit: Yes Status: Acute Code(s): R19.5 - OTHER FECAL ABNORMALITIES SNOMED Code(s): 291344201
--- NOTE | 2024-04-20 10:27 | P.PCN ---
Date of Procedure: 04/20/24 Procedure(s) Performed: PREOPERATIVE DIAGNOSIS: Positive Cologuard POSTOPERATIVE DIAGNOSIS: Diverticulosis PROCEDURE: Colonoscopy ANESTHESIA: MAC SURGEON: Andrew Tovar M.D. SPECIMENS: None ENDOSCOPIC PROCEDURE: The patient was placed on the endoscopy table in the left decubitus position. The Olympus colonoscope was inserted into the anus and passed under direct visualization to the base of the cecum. The appendiceal orifice was visualized. From that point the scope was slowly withdrawn inspecting all surfaces carefully. There were no neoplastic inflammatory or polypoid lesions throughout the cecum, ascending, transverse, descending, sigmoid and rectum. There was mild left-sided diverticulosis noted. Digital rectal examination revealed small internal and external hemorrhoids. The patient was taken to the recovery room in stable condition per anesthesia guidelines. RECOMMENDATIONS: Resume diet. Patient with small hemorrhoids. Likely source of recent abnormal stool study. Repeat colonoscopy 5 to 10 years given patient's history of colon polyps
[2024-04-20 10:44] VITALS: BP 143/77; PULSE 78; RESP 18
== END 2024-04-20 11:05 | disposition home or self-care (01) ==
LOC: ORWHC2ENDO 09:07
PROVIDERS: ATTEND Surgery
DX: R19.5 Other fecal abnormalities (principal); K57.30 Diverticulosis of large intestine without perforation or abscess without bleeding; K64.4 Residual hemorrhoidal skin tags; K64.8 Other hemorrhoids; Z86.0100 Personal history of colon polyps, unspecified; I10 Essential (primary) hypertension; K21.9 Gastro-esophageal reflux disease without esophagitis; M79.7 Fibromyalgia; M19.90 Unspecified osteoarthritis, unspecified site; Z90.89 Acquired absence of other organs; Z90.710 Acquired absence of both cervix and uterus; Z79.899 Other long term (current) drug therapy; Z79.01 Long term (current) use of anticoagulants; Z87.891 Personal history of nicotine dependence; Z86.711 Personal history of pulmonary embolism; Z86.718 Personal history of other venous thrombosis and embolism; Z88.8 Allergy status to other drugs, medicaments and biological substances
CPT/HCPCS: 45378; J2003; J2704